=== PATIENT | female | born 1940 | race Caucasian/White ===

== ENCOUNTER → 2017-11-21 14:30 | Outpatient (CLI) | payer MEDICARE, BC, SELFPAY | PROVIDERS: Family Provider Family Medicine; PCP Family Medicine; Visit Provider Family Medicine | DX: R30.0 Dysuria (principal) | CPT/HCPCS: 87077; 87086; 87088; 87186 ==

== ENCOUNTER → 2017-12-14 08:26 | Outpatient (CLI) | payer MEDICARE, SELFPAY ==
[2017-12-14 10:58] LABS: ALB/GLOB Ratio 1.4 RATIO (0.9-2.4); AST(SGOT) 24 U/L (15-37); Alanine Aminotransfer ALT/SGPT 28 U/L (13-56); Albumin, Serum 3.8 g/dL (3.2-5.0); Alkaline Phosphatase 57 U/L (45-117); Anion Gap 8 (5-15); BUN 19 mg/dL (7-18); BUN/Creat Ratio 23.2 RATIO (10-20); Calcium,Total 8.4 mg/dL (8.5-10.1); Chloride 106 mmol/L (98-107); Cholesterol 168 mg/dL (200); Creatinine, Serum 0.82 mg/dL (0.55-1.02); EST Glomerular Filtration Rate 72 mL/min (>60); Est Glom Filt Rate - Afr Amer 87 mL/min (>60); Globulin 2.8 g/dL (2.2-4.2); Glucose 94 mg/dL (74-106); High Density Lipoprotein 71 mg/dL; Potassium 4.2 mmol/L (3.5-5.1); Protein, Total 6.6 g/dL (6.4-8.2); Sodium Level 142 mmol/L (136-145); Triglycerides 65 mg/dL; Very Low Density Lipoprotein 13 mg/dL (5-40)
== END ==
PROVIDERS: Family Provider Family Medicine; PCP Family Medicine; Visit Provider Family Medicine
DX: I70.90 Unspecified atherosclerosis (principal)
CPT/HCPCS: 36415; 80053; 80061

== ENCOUNTER → 2018-10-18 08:14 | Outpatient (CLI) | payer MEDICARE, SELFPAY ==
--- NOTE | 2018-10-18 08:24 | BD_ITS ---
STUDY: DUAL ENERGY X-RAY ABSORPTIOMETRY / DXA REASON FOR EXAM: Female, 78 years old. The patient is postmenopausal. Loss of height. TECHNIQUE: Bone Mineral Density (BMD) measurements of lumbar spine and bilateral hips were obtained. COMPARISON: Comparison is made with prior study dated June 02, 2011. FINDINGS: Lumbar Spine (L1-L4): g/cm2 (0.801) / T-score (-3.0) / Z-score (-1.2) Findings are suggestive of osteoporosis with a high fracture risk. Left Femur Total: g/cm2 (0.848) / T-score (-1.3) / Z-score (0.6) Left Femoral Neck: g/cm2 (0.921) / T-score (-0.8) / Z-score (1.2) Right Femur Total: g/cm2 (0.832) / T-score (-1.4) / Z-score (0.5) Right Femoral Neck: g/cm2 (0.816) / T-score (-1.6) / Z-score (0.4) The T-Scores on the most recent prior examination were: Lumbar Spine (L1-L4): There has been worsening of bone density since the previous examination. Left Femur Total: which represents a worsening of 1.6%. Right Femur Total: which represents a worsening of 0.8%. BD/Dexa Bone Density Study IMPRESSION: The patient is considered osteoporotic as outlined below according to World Pern[employer] Organization (WHO) criteria with a high fracture risk. There has been worsening of bone density since the previous examination. Reference Information: The T-score is the number of standard deviations above or below the standard which is normal for young adults at their peak bone mineral density. The World Health Organization (WHO) interprets the T-scores as follows: Above -1 Normal bone density Between -1 and -2.5 Osteopenia Equal to / or below -2.5 Osteoporosis As a practical clinical guideline, osteopenia may be graded as follows: Mild -1 through -1.5 Moderate -1.6 through -2.0 Severe -2.1 through -2.4 The Z-score is the number of standard deviations above or below age-matched controls. A Z-score of less than -1.5 would be considered abnormal. References: 1. NIH Osteoporosis and Related Bone Diseases http://www.osteo.org 2. International Society for Clinical Densitometry http://www.iscd.org 3. National Osteoporosis Foundation http://www.nof.org Electronically Signed: Chito Zuleta MD at 9:05 EST , Service support ,
== END ==
PROVIDERS: Family Provider Family Medicine; PCP Family Medicine; Referring Provider Family Medicine; Visit Provider Family Medicine
DX: Z78.0 Asymptomatic menopausal state (principal); M81.0 Age-related osteoporosis without current pathological fracture
CPT/HCPCS: 77080

== ENCOUNTER 2019-08-23 15:00 | Outpatient (RCR) | payer MEDICARE, SELFPAY ==
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
--- NOTE | 2019-08-23 15:44 | HP.PTDCSUM ---
HP - PT D/C Summary It has been my pleasure to treat BENNY LAMBERT under orders from KRISTY LarryC, for the diagnosis of LUMBAR DDD for a total of 10 visit(s). Discharge Date: 08/23/19 Please see the following information for a summary of their discharge status. - Subjective Subjective: PATIENT REPORTS SHE IS SO MUCH BETTER. STATES THE ONLY TIME SHE REALLY GETS PAIN IS IF SHE SITS WRONG OR TOO LONG. SHE REPORTS SHE WANTS TO STOP PT AT THIS TIME BUT PLANS TO CONTINUE WALKING WITH HER FRIENDS. WALKING EVERY DAY FOR ABOUT 30 MINUTES. SHE IS BIKING ON THE DAYS IT IS WARM. SHE REPORTS SHE HAS SILVER SNEAKERS AND CAN USE IT TO DO INDEP POOL EX TOO. DOING HEP. - Pain Lumbar Spine Pain Intensity (Out of 10): 1 - Overall Improvement % Improvement: 85 - Objective Objective/Function: ALL GOALS MET. UPON EXAM TODAY: INDEP GAIT INTO PT WITHOUT ANY ASSISTIVE DEVICES. INDEP TRANSFER SIT TO STAND WITHOUT UE ASSIST. Motor deficit: BELÉN LE'S 5/5 WITH MMT'ING. ROM deficit: BELÉN LE'S WFL. Dural Signs: MILDY POSITIVE LLE DURAL SIGN. NEGATIVE RIGHT LE. Lumbar mvmt loss: flex - NIL. ext - MOD. R SG - MOD. L SG - MOD. BELÉN SG TESTING STILL INCREASES LOW BACK PAIN A LITTLE BIT. Core strength: POOR. Palpation: NO LONGER TENDER IN BUTTOCK OR SACRAL AREAS TODAY. CONTINUES TO HAVE TIGHT PARASPINALS. - Goals Goal 1:: DECREASE C/O LOW BACK AND LLE SX'S. Goal Progress: Goal Met Goal 2:: IMPROVE LIFTING, WALKING, STANDING, SLEEP, TRAVEL AND HOMEMAKING FUNCTION Goal Progress: Goal Met Goal 3:: INSTRUCT IN PROPHYLAXIS Goal Progress: Goal Met - Plan Plan: D/C TO INDEP EX. PATIENT IS AGREEABLE. - D/C Information If there are questions or concerns regarding this patient's physical therapy, please feel free to call me at [phone]. Thank you for the referral of this patient. Sincerely, Chinyere Ibanez, PT, Cert MDT
== END 2019-08-23 19:00 | disposition home or self-care (01) ==
LOC: PT 15:00
PROVIDERS: Family Provider Family Medicine; PCP Family Medicine; Referring Provider Nurse Practitioner; Visit Provider Nurse Practitioner
DX: M51.36 Other intervertebral disc degeneration, lumbar region (principal)
CPT/HCPCS: 97113; 97162; 97530

== ENCOUNTER → 2020-01-17 09:57 | Outpatient (CLI) | payer MEDICARE, SELFPAY ==
[2018-05-22 09:49] VITALS: BMI 22.2
[2020-01-17 13:39] LABS: AST(SGOT) 22 U/L (15-37); Alanine Aminotransfer ALT/SGPT 25 U/L (13-56); Albumin, Serum 3.6 g/dL (3.2-5.0); Alkaline Phosphatase 55 U/L (45-117); Bilirubin, Direct 0.09 mg/dL (0.00-0.30); Globulin 3.4 g/dL (2.2-4.2)
== END ==
PROVIDERS: PCP Family Medicine; Referring Provider Family Medicine; Visit Provider Family Medicine
DX: M15.9 Polyosteoarthritis, unspecified (principal)
CPT/HCPCS: 36415; 80076

== ENCOUNTER → 2020-03-25 07:58 | Outpatient (CLI) | payer MEDICARE, SELFPAY ==
[2018-05-22 09:49] VITALS: BMI 22.2
[2020-03-25 10:21] LABS: Absolute Lymphocyte Count 1.23 X10^3/uL (0.83-4.51); Absolute Neutrophil Count 3.4 X10^3/uL (2.0-7.7); Basophil# 0.04 X10^3/uL; Basophil% 0.7 % (0-1); Eosinophil# 0.09 X10^3/uL; Eosinophils% 1.7 % (0-5); Hematocrit 46.9 % (37-47); Hemoglobin 14.8 g/dL (12.0-15.0); Lymphocyte # 1.23 X10^3/ul (4.0); Mean Corp Hgb Conc 31.6 g/dL (32-36); Mean Corpuscular Hgb 29.4 pg (27.0-32.0); Mean Corpuscular Volume 93.1 fL (81-99); Monocyte# 0.56 X10^3/uL; Monocyte% 10.5 % (0-10); NRBC Flagged by Analyzer 0 % (0-5); Neutrophil # 3.41 X10^3/uL (2.7-7.7); Neutrophil % 63.7 % (47-70); Platelet Count 376 K/mm3 (150-450); RBC Distribution Width CV 12.8 % (11.6-14.6); RBC Distribution Width SD 43.6 fl (35.1-43.9); Red Blood Count 5.04 M/mm3 (4.2-5.4); White Blood Count 5.4 K/mm3 (4.4-11.0)
[2020-03-25 10:49] LABS: Vitamin B12 862 pg/mL (211-911)
[2020-03-25 11:53] LABS: CRP < 2.90 mg/L (0.0-3.0); Ferritin 15 ng/mL (8-252); Iron Binding Capacity,Total 428 ug/dL (250-450); T4 Free Direct 1.05 ng/dL (0.76-1.46); Thyroid Stim Hormone (TSH) 3.07 uIU/mL (0.358-3.74)
[2020-03-26 15:40] LABS: ANTINUCLEAR ANTIBODIES DIRECT Positive (Negative)
[2020-03-30 14:08] LABS: Anti-Centromere B Ab <0.2 AI (0.0-0.9); Anti-Chromatin <0.2 AI (0.0-0.9); Anti-Jo <0.2 AI (0.0-0.9); Anti-Scleroderma-70 AB <0.2 AI (0.0-0.9); Anti-ribosomal P Antibodies <0.2 AI (0.0-0.9); RNP Ab <0.2 AI (0.0-0.9); SJOGREN'S Anti-SS-A test < 0.2 AI (0.0-0.9); SJOGREN'S Anti-SS-B test 4.3 AI (0.0-0.9); Smith Ab <0.2 AI (0.0-0.9); Smith/RNP Ab <0.2 AI (0.0-0.9)
[2020-03-30 15:25] LABS: Anti-dsDNA Ab <1 IU/mL (0-9)
== END ==
PROVIDERS: PCP Family Medicine; Referring Provider Family Medicine; Visit Provider Family Medicine
DX: L65.9 Nonscarring hair loss, unspecified (principal); R53.83 Other fatigue
CPT/HCPCS: 36415; 82607; 82728; 82746; 83550; 84439; 84443; 84481; 85025; 86038; 86140; 86225; 86235

== ENCOUNTER → 2020-04-03 12:52 | Outpatient (CLI) | payer MEDICARE, SELFPAY ==
--- NOTE | 2020-04-03 12:56 | ECHOD_ITS ---
Reason For Study: aortic systolic murmur Procedure This was a 2D Doppler, Color Flow transthoracic echocardiogram. Exam performed in department. Left Ventricle Normal LV size. The estimated ejection fraction is 65 %. Unable to assess diastolic dysfunction. No regional wall motion abnormalities noted. Right Ventricle Normal RV size. Normal systolic function. Atria Normal left atrium. Normal right atrium. No doppler evidence for ASD. Mitral Valve There is moderate mitral annular calcification. There is no mitral valve stenosis. There is no mitral regurgitation noted. Tricuspid Valve There is no tricuspid stenosis. Unable to estimate RV systolic pressure due to insufficient tricuspid regurgitant envelope. Trivial tricuspid valve insufficiency. Aortic Valve Moderate diffuse aortic valve thickening. Moderate aortic stenosis. Trivial aortic valve insufficiency. Pulmonic Valve There is no pulmonic valvular stenosis. Trivial pulmonic valve insufficiency. Great Vessels Normal aortic root. Pericardium/Pleural No pericardial effusion. MMode/2D Measurements & Calculations LVIDd: 3.9 cm IVSd: 0.98 cm LVOT diam: 2.1 cm LVIDs: 2.3 cm LVPWd: 0.93 cm LVOT area: 3.4 cm2 RVDd: 2.9 cm FS: 42.0 % Ao root diam: 2.8 cm LAV(MOD-bp): 35.7 ml LA A4 area: 15.7 cm2 LAV(MOD-bp) Indexed: 23.4 ml/m2 LAV(MOD-sp2): 29.7 ml LAV(MOD-sp4): 41.3 ml LA dimension(2D): 3.6 cm RA A4 area: 13.7 cm2 Time Measurements MV dec time: 0.23 sec Doppler Measurements & Calculations MV E max colton: 69.1 cm/sec Lat Peak E' Colton: 4.6 cm/sec Med Peak E' Colton: 4.5 cm/sec MV A max colton: 111.6 cm/sec E/E' lat: 15.1 E/E' med: 15.3 MV E/A: 0.62 Ao V2 max: 323.8 cm/sec LV V1 max: 123.2 cm/sec SV(LVOT): 87.7 ml Ao max P.0 mmHg LV V1 max P.1 mmHg Ao V2 mean: 232.8 cm/sec LV V1 mean P.3 mmHg Ao mean P.0 mmHg LV V1 mean: 85.9 cm/sec Ao V2 VTI: 68.2 cm LV V1 VTI: 25.7 cm KAILA(I,D): 1.3 cm2 KAILA(V,D): 1.3 cm2 PA V2 max: 98.6 cm/sec TR max colton: 285.7 cm/sec TR max P.6 mmHg Interpretation Summary The estimated ejection fraction is 65 %. Unable to assess diastolic dysfunction. Moderate diffuse aortic valve thickening. Moderate aortic stenosis. Ordering Physician: Arturo Marrero Referring Physician: Arturo Marrero Performed By: Taylor Cox, [place], RVT
== END ==
PROVIDERS: PCP Family Medicine; Referring Provider Family Medicine; Visit Provider Family Medicine
DX: I35.1 Nonrheumatic aortic (valve) insufficiency (principal)
CPT/HCPCS: 93306

== ENCOUNTER → 2021-01-06 08:20 | Outpatient (CLI) | payer MEDICARE, SELFPAY ==
[2020-05-27 14:13] VITALS: BMI 22.8
[2021-01-06 10:24] LABS: Absolute Lymphocyte Count 1.15 X10^3/uL (0.83-4.51); Absolute Neutrophil Count 3.1 X10^3/uL (2.0-7.7); Basophil# 0.04 X10^3/uL; Basophil% 0.8 % (0-1); Eosinophil# 0.08 X10^3/uL; Eosinophils% 1.6 % (0-5); Hematocrit 46.9 % (37-47); Hemoglobin 14.8 g/dL (12.0-15.0); Lymphocyte # 1.15 X10^3/ul (0.83-4.51); Lymphocyte % 23.3 % (19-41); Mean Corp Hgb Conc 31.6 g/dL (32-36); Mean Corpuscular Hgb 28.4 pg (27.0-32.0); Mean Platelet Vol. 9.8 fl (6.2-12.0); Monocyte# 0.58 X10^3/uL; Monocyte% 11.8 % (0-10); NRBC Flagged by Analyzer 0 % (0-5); Neutrophil # 3.06 X10^3/uL (2.7-7.7); Neutrophil % 62.1 % (47-70); Platelet Count 360 K/mm3 (150-450); RBC Distribution Width CV 12.7 % (11.6-14.6); RBC Distribution Width SD 41.3 fl (35.1-43.9); Red Blood Count 5.21 M/mm3 (4.2-5.4); White Blood Count 4.9 K/mm3 (4.4-11.0)
[2021-01-06 10:38] LABS: Vitamin D,25 Hydroxy 50.9 ng/mL
[2021-01-06 10:59] LABS: ALB/GLOB Ratio 1.1 RATIO (0.9-2.4); AST(SGOT) 16 U/L (15-37); Alanine Aminotransfer ALT/SGPT 19 U/L (13-56); Albumin, Serum 3.6 g/dL (3.2-5.0); Alkaline Phosphatase 62 U/L (45-117); Anion Gap 5 (5-15); BUN 21 mg/dL (7-18); BUN/Creat Ratio 28.5 RATIO (10-20); Calcium,Total 8.7 mg/dL (8.5-10.1); Chloride 106 mmol/L (98-107); Cholesterol 313 mg/dL (200); Creatinine, Serum 0.74 mg/dL (0.55-1.02); EST Glomerular Filtration Rate 81 mL/min (>60); Est Glom Filt Rate - Afr Amer 97 mL/min (>60); Globulin 3.4 g/dL (2.2-4.2); Glucose 91 mg/dL (74-106); High Density Lipoprotein 65 mg/dL; Potassium 4.4 mmol/L (3.5-5.1); Sodium Level 138 mmol/L (136-145); Thyroid Stim Hormone (TSH) 2.99 uIU/mL (0.358-3.74); Triglycerides 187 mg/dL; Very Low Density Lipoprotein 37 mg/dL (5-40)
== END ==
PROVIDERS: PCP Family Medicine; Referring Provider Family Medicine; Visit Provider Family Medicine
DX: E78.00 Pure hypercholesterolemia, unspecified (principal); R13.10 Dysphagia, unspecified; I35.0 Nonrheumatic aortic (valve) stenosis; M81.0 Age-related osteoporosis without current pathological fracture
CPT/HCPCS: 36415; 80053; 80061; 82306; 84443; 85025

== ENCOUNTER → 2021-01-08 13:54 | Outpatient (CLI) | payer MEDICARE, SELFPAY ==
[2020-05-27 14:13] VITALS: BMI 22.8
--- NOTE | 2021-01-08 13:57 | BI_ITS ---
MAMMOGRAPHY - BILATERAL SCREENING REASON FOR EXAM: Female, 81 years old. Routine annual screening examination. PERTINENT HISTORY: Daughters with breast cancer. TECHNIQUE: Digital bilateral breast sandra (3D mammographic acquisition) in the CC and MLO projections. 2-D mediolateral oblique (MLO) and craniocaudad (CC) views of both breasts were obtained. CAD: Full Field Digital Mammography with Computer Added Detection was performed. COMPARISON: Comparison is made with prior examination dated 03/03/2009. FINDINGS: Breast Composition: The breasts are heterogeneously dense, which may obscure small masses. There are no dominant masses or suspicious calcifications. Vascular calcification. Small benign-appearing bilateral axillary lymph. No other significant abnormalities are identified. There has been no significant change since the prior study. BI/SCRN MAMM (CAD)W/SANDRA BILAT IMPRESSION: Stable bilateral screening mammogram. Yearly follow-up mammogram recommended. (A) ASSESSMENT CATEGORY: BIRADS Category 2: Benign. A letter regarding these results will be sent to the patient by the facility within 30 days. Approximately 10% of breast cancers are not detected by mammography. A normal mammogram should not delay biopsy of a clinically suspicious abnormality. [id number] Electronically Signed: Chito Zuleta MD at 14:52 EDT , Service support ,
== END ==
PROVIDERS: PCP Family Medicine; Referring Provider Family Medicine; Visit Provider Family Medicine
DX: Z12.31 Encounter for screening mammogram for malignant neoplasm of breast (principal); Z80.3 Family history of malignant neoplasm of breast
CPT/HCPCS: 77063; 77067

== ENCOUNTER 2021-03-18 09:03 | Inpatient (IN) | payer MEDICARE, SELFPAY ==
[2020-05-27 14:13] VITALS: BMI 22.8
[2021-03-18] VITALS (14 sets, daily range): BP systolic 99–129; BP diastolic 59–82; PULSE 44–93; RESP 15–18; TEMP 35.8–36.9; O2SAT 91–100; BMI 45.3; BMI 20.7
[2021-03-18 10:11] LABS: Absolute Lymphocyte Count 1.67 X10^3/uL (0.83-4.51); Absolute Neutrophil Count 5.7 X10^3/uL (2.0-7.7); Basophil# 0.03 X10^3/uL; Basophil% 0.4 % (0-1); Eosinophil# 0.02 X10^3/uL; Eosinophils% 0.2 % (0-5); Hemoglobin 14.4 g/dL (12.0-15.0); Lymphocyte # 1.67 X10^3/ul (0.83-4.51); Lymphocyte % 20.4 % (19-41); Mean Corp Hgb Conc 32.7 g/dL (32-36); Mean Corpuscular Hgb 29.7 pg (27.0-32.0); Mean Corpuscular Volume 90.7 fL (81-99); Mean Platelet Vol. 9.6 fl (6.2-12.0); Monocyte# 0.69 X10^3/uL; Monocyte% 8.4 % (0-10); NRBC Flagged by Analyzer 0 % (0-5); Neutrophil # 5.71 X10^3/uL (2.7-7.7); Platelet Count 341 K/mm3 (150-450); RBC Distribution Width CV 13.1 % (11.6-14.6); Red Blood Count 4.85 M/mm3 (4.2-5.4); White Blood Count 8.2 K/mm3 (4.4-11.0)
--- NOTE | 2021-03-18 10:13 | ED.VIS.GI ---
HPI HPI - GI History of Present Illness Chief Complaint: Flank Pain Informant: patient Abdominal Pain/Flank Pain Onset: Today Context: Gradual Onset Timing: Continuous Quality: Aching Location: LLQ Worsened by: Nothing Relieved by: Nothing Nausea/Vomiting/Emesis GI Symptom: Positive for Nausea; Negative for Vomiting Diarrhea/Melena/Hematochezia GI Symptom: Positive for Diarrhea; Negative for Melena and Hematochezia Narrative Narrative: Patient presents with left lower abdominal pain that began today. Patient states it was gradually getting worse but then became severe this morning. Patient states the pain is constant and aching. Patient states pain is localized to the left lower quadrant. Patient states her pain radiates straight through to her back. Patient is concerned that this could possibly be a kidney stone. Patient states nothing makes her pain better nothing makes it worse. Patient admits to nausea but denies any vomiting. Patient admits to diarrhea but denies any melena or hematochezia. Patient denies any dysuria, hematuria, or urinary frequency. [facility] Medical History (Updated 03/18/21 @ 13:[address] Arturo Starr, ) Allergic rhinitis Essential (primary) hypertension GERD (gastroesophageal reflux disease) HLD (hyperlipidemia) Lumbar radiculopathy Nonrheumatic aortic (valve) stenosis Obstructive sleep apnea Osteoarthritis Osteoporosis Polyarthralgia Stenosis of right carotid artery Home Medications amlodipine 5 mg tablet 5 mg PO DAILY 05/22/18 [History Last Taken Unknown] denosumab 60 mg/mL subcutaneous syringe 60 mg SC [id number] PRN 05/22/18 [History Last Taken Unknown] famotidine 40 mg tablet 40 mg PO BID 05/22/18 [History Last Taken Unknown] multivitamin 1 tab PO DAILY 05/22/18 [History Last Taken Unknown] potassium citrate 5 mEq (540 mg) tablet,extended release 5 meq PO DAILY tab 05/22/18 [History Last Taken Unknown] etodolac 400 mg tablet 400 mg PO DAILY tab 05/26/20 [History Last Taken Unknown] turmeric 400 mg capsule mg PO 05/26/20 [History Last Taken Unknown] celecoxib 100 mg capsule 100 mg PO BID cap 05/27/20 [History Last Taken Unknown] evolocumab 140 mg/mL subcutaneous pen injector 140 mg SUBCUT Q2W #2 ml 01/09/21 [Rx Last Taken Unknown] Allergy/AdvReac Type Severity Reaction Status Date / Time ramipril [From Altace] Allergy Angioedema Verified 03/18/21 09:04 atorvastatin [From Lipitor] AdvReac myalgias Verified 03/18/21 09:04 cefuroxime [From Ceftin] AdvReac GI Upset Verified 03/18/21 09:04 isosorbide AdvReac headache Verified 03/18/21 09:04 [id number] Reductase AdvReac myalgias Verified 03/18/21 09:04 Inhibitor ANTIHISTAMINE, PT UNSURE WHAT Allergy Unknown Uncoded 03/18/21 09:04 Family History Father CVA (cerebral vascular accident) Mother CVA (cerebral vascular accident) Surgical History Esophageal dilatation History of carpal tunnel surgery History of lumbar surgery Social History Smoking Status: Never smoker alcohol intake: current ROS ROS ED Constitutional Constitutional ED: Denies chills or fever(s) Eyes Eyes: Denies blurry vision or change in vision ENT ENT ED: Denies rhinorrhea or sore throat Cardiovascular Cardiovascular: Denies chest pain or palpitations Respiratory/Chest Respiratory/Chest: Denies cough or dyspnea Gastrointestinal Gastrointestinal: Reports abdominal pain, diarrhea and nausea; Denies vomiting Genitourinary Genitourinary ED: Denies dysuria or hematuria Musculoskeletal Musculoskeletal: Reports back pain; Denies neck pain Integumentary Denies abscess or rash Neurologic Neurologic: Denies headache(s) or weakness Allergic/Immunologic Allergic/Immunologic ED: Denies mouth swelling or urticaria EXAM Physical Exam Const Vital Signs: 03/18/21 09:04 03/18/21 09:49 Temperature 97.2 F L Temperature Source Temporal Pulse Rate 44 L Respiratory Rate 18 Respiratory Effort Normal Non-Labored Respiratory Pattern Normal Blood Pressure 109/59 L Blood Pressure Mean 75 Pulse Ox 98 Oxygen Delivery Method Room Air Positive well nourished and well developed General Appearance ED: well developed HEENT Reports moist mucous membranes Neck supple and no JVD Resp normal respiratory effort and clear to auscultation bilaterally Cardio regular rate, regular rhythm and no murmurs GI normal to inspection, nondistended, normoactive bowel sounds Palpation: soft and tender LLQ; Negative for guarding or rebound tenderness present Back/Spine no CVA tenderness Extremity normal to inspection General Extremety ED: Negative for edema or tenderness General Extremity: Negative for edema Neuro oriented x3, CN's II-XII intact bilaterally and no sensory deficits noted Sensorium / Orientation: alert Motor Exam: strength 5/5 throughout Psych mental status grossly normal Skin no rashes or lesions noted MDM MDM MDM Narrative Medical decision making narrative: CBC and comprehensive metabolic profile were obtained and were within normal limits. Urinalysis does not show any evidence of urinary tract infection. CT scan of the abdomen and pelvis was obtained. There is diverticulitis with perforation. This was interpreted by the radiologist and reviewed by myself. Case was discussed with Dr. Ventura. He reviewed the CT scan and will take the patient to surgery today. Patient understood and was agreeable with the plan. All questions were answered. Lab Data Attestation: I reviewed the patient's lab results. Labs: Laboratory Results - last 24 hr 03/18/21 03/18/21 03/18/21 09:30 09:30 10:28 WBC 8.2 RBC 4.85 Hgb 14.4 Hct 44.0 MCV 90.7 MCH 29.7 MCHC 32.7 RDW Std Deviation 43.0 RDW Coeff of Gurvinder 13.1 Plt Count 341 MPV 9.6 Immature Gran % (Auto) 0.600 Neut % (Auto) 70.0 Lymph % (Auto) 20.4 Gentry % (Auto) 8.4 Eos % (Auto) 0.2 Baso % (Auto) 0.4 Absolute Neuts (auto) 5.7 Absolute Lymphs (auto) 1.67 Nucleated RBC % 0 Sodium 138 Potassium 3.7 Chloride 104 Carbon Dioxide 30.0 Anion Gap 4 L BUN 28 H Creatinine 0.95 Estim Creat Clear Calc 39.07 Est GFR (MDRD) Af Amer 73 Est GFR (MDRD) Non-Af 60 BUN/Creatinine Ratio 29.5 H Glucose 120 H Calcium 8.6 Total Bilirubin 0.30 AST 22 ALT 23 Alkaline Phosphatase 55 Total Protein 6.6 Albumin 3.6 Globulin 3.0 Albumin/Globulin Ratio 1.2 Lipase 139 Urine Color Yellow Urine Clarity Clear Urine pH 6.0 Ur Specific Mosca 1.025 Urine Protein 15 H Urine Glucose (UA) Normal Urine Ketones Negative Urine Occult Blood 10 H Urine Nitrite Negative Urine Bilirubin 3 H Urine Urobilinogen Normal Ur Leukocyte Esterase 25 H Urine RBC 0-5 SEEN Urine WBC 5-10 SEEN Ur Squamous Epith Cells 5-10 SEEN Urine Bacteria 1+ Urine Mucus 1+ Radiography Diagnostic Testing: Radiology Impression Abdomen/Pelvis CT 03/18/21 11:45 IMPRESSION: Acute perforated diverticulitis (surgical consultation recommended) Early organizing deep pelvic free fluid/collection (potential evolving abscess) Additional nonemergent findings, as above N.B. : The above Results were Read Back by Arturo Alcaraz DO to Dr. Matty DO, and understanding confirmed on 03/18/2021 12:22:34 (ET). Electronically Signed: Arturo Alcaraz DO at 12:25 EDT Tel , Service support , ADDENDUM: 03/18/21 1232 IMPRESSION: Acute perforated diverticulitis (surgical consultation recommended) Early organizing deep pelvic free fluid/collection (potential evolving abscess) Additional nonemergent findings, as above N.B. : The above Results were Read Back by Arturo Alcaraz DO to Dr. Matty DO, and understanding confirmed on 03/18/2021 12:22:34 (ET). Electronically Signed: Arturo Alcaraz DO at 12:25 EDT Tel , Service support , Discharge Plan Triage Chief Complaint: Flank Pain ED Provider: Arturo Starr Dx/Rx/DC Orders Clinical Impression: Diverticulitis of colon with perforation Prescriptions: No Action famotidine 40 mg tablet 40 mg PO BID RF: 0 multivitamin [Daily Multi-Vitamin] tablet 1 tab PO DAILY RF: 0 denosumab [Prolia] 60 mg/mL syringe 60 mg SC [id number] PRNRF: 0 potassium citrate 5 mEq (540 mg) tablet extended release 5 meq PO DAILY RF: 0 amlodipine 5 mg tablet 5 mg PO DAILY RF: 0 celecoxib 100 mg capsule 100 mg PO BID RF: 0 etodolac 400 mg tablet 400 mg PO DAILY RF: 0 turmeric 400 mg capsule PO RF: 0 Repatha SureClick 140 mg/mL pen injector 140 mg subcut Q2W Qty: 2 RF: 11 Primary Care Provider: Arturo Marrero Referrals: Arturo Marrero MD [Primary Care Provider] - Disposition Disposition: Acute Care Hospital [facility]
[2021-03-18 10:24] LABS: ALB/GLOB Ratio 1.2 RATIO (0.9-2.4); AST(SGOT) 22 U/L (15-37); Alanine Aminotransfer ALT/SGPT 23 U/L (13-56); Albumin, Serum 3.6 g/dL (3.2-5.0); Alkaline Phosphatase 55 U/L (45-117); Anion Gap 4 (5-15); BUN 28 mg/dL (7-18); BUN/Creat Ratio 29.5 RATIO (10-20); Calcium,Total 8.6 mg/dL (8.5-10.1); Chloride 104 mmol/L (98-107); Creatinine, Serum 0.95 mg/dL (0.55-1.02); EST Glomerular Filtration Rate 60 mL/min (>60); Est Glom Filt Rate - Afr Amer 73 mL/min (>60); Estimated Creatinine Clearance 39.07 ml/min; Glucose 120 mg/dL (74-106); Lipase 139 U/L (73-393); Potassium 3.7 mmol/L (3.5-5.1); Protein, Total 6.6 g/dL (6.4-8.2); Sodium Level 138 mmol/L (136-145)
[2021-03-18] MEDS: 0.9% Normal Saline 1,000 ML 1000 ML IV (10:32)
[2021-03-18] MEDS: Morphine 4 MG/ML Syringe IV (10:33)
[2021-03-18] MEDS: Ondansetron 4 MG/2 ML Vial IV (10:33)
[2021-03-18 10:38] LABS: Color, Urine Yellow (Yellow); Glucose, Dipstick Normal (Normal); Ketone-Dipstick Negative (Negative); Leukocyte Esterase-Dipstick 25 /ul (Negative); Nitrite-Dipstick Negative (Negative); Occult Blood-Urine 10 /ul (Negative); Protein-Dipstick 15 mg/dl (Negative); Specific Gravity, Urine 1.025 (1.002-1.030); Urine Clarity Clear (Clear); Urine Urobilinogen Normal (Normal)
[2021-03-18 10:43] LABS: Urine Bilirubin Dipstick 3 mg/dL (Negative)
[2021-03-18 10:45] LABS: Bacteria 1+ /hpf (None Seen); Mucous, Urine 1+ /hpf (<or=2+); Red Blood Cells-Urine 0-5 SEEN /hpf (0-5); Squamous Epithelial Cells - UA 5-10 SEEN /hpf (5-10); White Blood Cells 5-10 SEEN /hpf (0-5)
--- NOTE | 2021-03-18 11:45 | CT_ITS ---
STUDY: CT ABDOMEN AND PELVIS WITH CONTRAST REASON FOR EXAM: Female, 81 years old. Abdominal pain -- IV PO Contrast RADIATION DOSAGE (If Supplied By Facility): CTDIvol = ( 11.57 ) mGy, DLP = ( 470.23 ) mGycm TECHNIQUE: Transaxial images were obtained from the dome of the diaphragm to the symphysis pubis without oral contrast. Oral and amp; IV Gastrografin and amp; 100mL Isovue-300 was administered. Sagittal and coronal images were reconstructed. Individualized dose optimization techniques were used for this CT. COMPARISON: None. FINDINGS: Lung bases: Mild atelectasis. Heart: Vascular calcifications. Coronary artery disease. Liver: Unremarkable. Gallbladder/biliary ducts: Cholecystectomy. No acute process. Pancreas: Unremarkable. Spleen: Unremarkable. Adrenal glands: Unremarkable. Kidneys/ureters/bladder: Unremarkable. Uterus/adnexa: Hysterectomy. Pessary device. Tiny left cystic adnexa (axial image 76 series 2). Large bowel/small bowel: Mild inflammatory changes at the distal sigmoid colon near the left pelvic sidewall (axial image 83 series 2). No bowel obstruction. No pneumatosis. Contrast reaches the rectum. Nondilated small bowel loops. Appendix: No secondary signs of acute appendicitis. Nonvisualized appendix. Gastroesophageal junction/stomach: Contrast-filled hiatal hernia (axial image 11 series 2). Contrast-filled stomach. No wall thickening. Retroperitoneum/lymph nodes: Intraabdominal/pelvic free air (axial image 62 series 2). Early organizing deep pelvic collection /free fluid 6 measuring approximately 6 cm x 4 cm (axial image 87 series 2) interdigitating between the deep pelvic bowel loops. No pathologically enlarged lymph nodes. Vascular: Vascular calcifications. No aneurysm. Osseous structures: Lumbar spinal fixation hardware. Multilevel degenerative changes. No acute process. Subcutaneous/soft tissues: Punctate right breast calcification (axial image 7 series 2). Paraspinal muscle atrophy. Small fat-containing umbilical hernia. No acute process. CT/Abdomen/Pelvis WITH Contrast IMPRESSION: Acute perforated diverticulitis (surgical consultation recommended) Early organizing deep pelvic free fluid/collection (potential evolving abscess) Additional nonemergent findings, as above N.B. : The above Results were Read Back by Arturo Alcaraz DO to Dr. Matty DO, and understanding confirmed on 03/18/2021 12:22:34 (ET). Electronically Signed: Arturo Alcaraz DO at 12:25 EDT Tel , Service support ,
--- NOTE | 2021-03-18 13:01 | EKG12_ITS ---
Test Reason : PREOP Blood Pressure : / mmHG Vent. Rate : 057 BPM Atrial Rate : 057 BPM P-R Int : 172 ms QRS Dur : 088 ms QT Int : 448 ms P-R-T Axes : 027 006 033 degrees QTc Int : 436 ms Sinus bradycardia Otherwise normal ECG Confirmed by NELLIE FRAGOSO, GABBY ([id number]), map editor GISSELLE HEAD ([id number]) on 03/22/2021 9:26:17 AM Referred By: JAMIL Confirmed By:TROY BALLARD MD
[2021-03-18] MEDS: metroNIDAZOLE 500 MG/100 ML BAG 100 MG IV ×2 (13:28→23:48)
--- NOTE | 2021-03-18 14:17 | PCM.HP.STD ---
HPI - General HPI Narrative BENNY LAMBERT, is a 81 F who presents with lower abdominal pain. Patient reported this morning she started having severe abdominal pain in the lower abdomen radiating to the left lower back. Patient reports no fevers or chills. She says that she had a colonoscopy about 2 years ago which was normal except for one polyp. Patient has never had diverticulitis in the past. [facility] Medical History (Updated 03/18/21 @ 13:[address] Arturo Starr, DO) Allergic rhinitis Essential (primary) hypertension GERD (gastroesophageal reflux disease) HLD (hyperlipidemia) Lumbar radiculopathy Nonrheumatic aortic (valve) stenosis Obstructive sleep apnea Osteoarthritis Osteoporosis Polyarthralgia Stenosis of right carotid artery Home Medications amlodipine 5 mg tablet 5 mg PO DAILY 05/22/18 [History Last Taken Unknown] denosumab 60 mg/mL subcutaneous syringe 60 mg SC [id number] 05/22/18 [History Last Taken Unknown] famotidine 40 mg tablet 40 mg PO BID 05/22/18 [History Last Taken Unknown] multivitamin 1 tab PO DAILY 05/22/18 [History Last Taken Unknown] potassium citrate 5 mEq (540 mg) tablet,extended release 5 meq PO DAILY tab 05/22/18 [History Last Taken Unknown] etodolac 400 mg tablet 400 mg PO DAILY tab 05/26/20 [History Last Taken Unknown] turmeric 400 mg capsule mg PO 05/26/20 [History Last Taken Unknown] celecoxib 100 mg capsule 100 mg PO BID cap 05/27/20 [History Last Taken Unknown] evolocumab 140 mg/mL subcutaneous pen injector 140 mg SUBCUT Q2W #2 ml 01/09/21 [Rx Last Taken Unknown] Allergy/AdvReac Type Severity Reaction Status Date / Time ramipril [From Altace] Allergy Angioedema Verified 03/18/21 09:04 atorvastatin [From Lipitor] AdvReac myalgias Verified 03/18/21 09:04 cefuroxime [From Ceftin] AdvReac GI Upset Verified 03/18/21 09:04 isosorbide AdvReac headache Verified 03/18/21 09:04 [id number]-Qbo-Onq Reductase AdvReac myalgias Verified 03/18/21 09:04 Inhibitor ANTIHISTAMINE, PT UNSURE WHAT Allergy Unknown Uncoded 03/18/21 09:04 Family History Father CVA (cerebral vascular accident) Mother CVA (cerebral vascular accident) Surgical History (Updated 03/18/21 @ 14:[address] Gianfranco Ventura MD) Esophageal dilatation History of carpal tunnel surgery History of lumbar surgery Hx of appendectomy S/P cholecystectomy Social History Smoking Status: Never smoker alcohol intake: current ROS Constitutional Constitutional: Denies anorexia, fatigue or fever(s) Eyes Eyes: Denies blurry vision ENT HEENT: Denies abnormal hearing Cardiovascular Cardiovascular: Denies chest pain Respiratory/Chest Respiratory/Chest: Denies cough or dyspnea Gastrointestinal Gastrointestinal: Reports abdominal pain; Denies coffee ground emesis, constipation, diarrhea, dysphagia, hematemesis, hematochezia, melena, nausea or vomiting Genitourinary Genitourinary: Denies change in urinary stream Integumentary Integumentary: Denies jaundice Neurologic Neurologic: Denies abnormal gait Psychiatric Psychiatric: Denies anxiety Endocrine Endocrinology: Denies heat intolerance Hematologic/Lymphatic Hematologic/Lymphatic: Denies easy bleeding Vital Signs Vital Signs Vital Signs: 03/18/21 09:04 03/18/21 09:49 03/18/21 13:29 Temperature 97.2 F L 97.8 F Temperature Source Temporal Temporal Pulse Rate 44 L 64 Respiratory Rate 18 16 Respiratory Effort Normal Non-Labored Respiratory Pattern Normal Blood Pressure 109/59 L 110/66 Blood Pressure Mean 75 80 Pulse Ox 98 97 Oxygen Delivery Method Room Air Room Air Weight Weight: 255 lb 11.779 oz Body Mass Index (BMI) 45.3 Physical Exam Const oriented x3 and no apparent distress HEENT normocephalic Eyes PERRL Resp normal respiratory effort Cardio regular rate and regular rhythm GI soft to palpation Palpation: tender LLQ and RLQ Extremity normal to inspection Skin no rashes or lesions noted Neuro CN's II-XII intact bilaterally Results Lab / Micro Data Result Diagrams: 03/18/21 09:30 03/18/21 09:30 Labs: Laboratory Results - last 24 hr 03/18/21 09:30: WBC 8.2, RBC 4.85, Hgb 14.4, Hct 44.0, MCV 90.7, MCH 29.7, MCHC 32.7, RDW Std Deviation 43.0, RDW Coeff of Gurvinder 13.1, Plt Count 341, MPV 9.6, Immature Gran % (Auto) 0.600, Neut % (Auto) 70.0, Lymph % (Auto) 20.4, [place] % (Auto) 8.4, Eos % (Auto) 0.2, Baso % (Auto) 0.4, Absolute Neuts (auto) 5.7, Absolute Lymphs (auto) 1.67, Nucleated RBC % 0 03/18/21 09:30: Sodium 138, Potassium 3.7, Chloride 104, Carbon Dioxide 30.0, Anion Gap 4 L, BUN 28 H, Creatinine 0.95, Estim Creat Clear Calc 39.07, Est GFR (MDRD) Af Amer 73, Est GFR (MDRD) Non-Af 60, BUN/Creatinine Ratio 29.5 H, Glucose 120 H, Calcium 8.6, Total Bilirubin 0.30, AST 22, ALT 23, Alkaline Phosphatase 55, Total Protein 6.6, Albumin 3.6, Globulin 3.0, Albumin/Globulin Ratio 1.2, Lipase 139 03/18/21 10:28: Urine Color Yellow, Urine Clarity Clear, Urine pH 6.0, Ur Specific [place] 1.025, Urine Protein 15 H, Urine Glucose (UA) Normal, Urine Ketones Negative, Urine Occult Blood 10 H, Urine Nitrite Negative, Urine Bilirubin 3 H, Urine Urobilinogen Normal, Ur Leukocyte Esterase 25 H, Urine RBC 0-5 SEEN, Urine WBC 5-10 SEEN, Ur Squamous Epith Cells 5-10 SEEN, Urine Bacteria 1+, Urine Mucus 1+ Micro: Microbiology 03/18/21 13:18 Mucosa - Nose SARS-CoV-2 Antigen (Rapid) - Final Radiology Impression Abdomen/Pelvis CT 03/18/21 11:45 IMPRESSION: Acute perforated diverticulitis (surgical consultation recommended) Early organizing deep pelvic free fluid/collection (potential evolving abscess) Additional nonemergent findings, as above N.B. : The above Results were Read Back by Arturo Alcaraz DO to Dr. Matty DO, and understanding confirmed on 03/18/2021 12:22:34 (ET). Electronically Signed: Arturo Alcaraz DO at 12:25 EDT Tel , Service support , ADDENDUM: 03/18/21 1232 IMPRESSION: Acute perforated diverticulitis (surgical consultation recommended) Early organizing deep pelvic free fluid/collection (potential evolving abscess) Additional nonemergent findings, as above N.B. : The above Results were Read Back by Arturo Alcaraz DO to Dr. Matty DO, and understanding confirmed on 03/18/2021 12:22:34 (ET). Electronically Signed: Arturo Alcaraz DO at 12:25 EDT Tel , Service support , Assessment & Plan Assessment/Plan (1) Diverticulitis of colon with perforation: PLAN: Patient CT scan shows bubbles of free air throughout the abdomen with inflammation in the sigmoid colon. I discussed perforated sigmoid diverticulitis with the patient and her . I explained that this is a surgical issue and requires sigmoid resection. I discussed laparoscopic sigmoid colectomy with the patient in detail. I explained the possibility of having to convert to an open procedure. I also explained the possibility of having to perform a colostomy. I discussed the risks of the procedure include modality to bleeding, infection, injury to other bowel, injury to surrounding organs such as the bladder, ureter, blood vessels. Patient understands the risks and is willing to proceed with sigmoid colectomy this afternoon. Patient was started on antibiotics. Patient had a last colonoscopy 2 years ago. Gianfranco Ventura MD Pager: [facility] [address] [place] [address], [address] [place] [address] Office:
--- NOTE | 2021-03-18 14:30 | COL_PTH ---
PATIENT: BENNY LAMBERT LOC: MS3 U#:[id number] AGE/SX: 81/F [place] [facility] [place]: Dr. Gianfranco Ventura MD : 1940 BED: 1 DIS: 03/21/2021 SPEC #: [id number] RECD: 03/19/21 09:16 STATUS: ROSHAN PITTSJennifer #: [id number] EVETTE: 03/18/21 14:[address]: Gianfranco Ventura DEPT: SURGICAL PATHOLOGY RECD BY: Luis Daniel Rodgers ENTERED: 03/19/21 10:36 SP TYPE: COLON OTHR DR: Dr. Arturo Marrero MD Tissues: A - Sigmoid colon biopsy B - Colon Donuts C - Colon Donuts Procedures: Surgery Specimen Level IV Surgery Specimen Level V HEADER OPERATION: Laparoscopic sigmoid colectomy PRE-OP DIAGNOSIS: Acute perforated diverticulitis TISSUE SUBMITTED: A ? Sigmoid colon, B ? Proximal donut ? sigmoid, C ? Distal donut - rectal MICROSCOPIC DIAGNOSIS A. Sigmoid colon, segmental colectomy: Diverticular disease of colon with focal rupture and microabscess formation. Acute serositis. Margins of excision with no significant pathologic change. Two out of two lymph nodes with no pathologic change. B. Proximal mucosal donut, excision: Colonic mucosa with no pathologic change. C. Distal mucosal donut, excision: Colonic mucosa with no pathologic change. AM:amber 03/23/2021 MICROSCOPIC DESCRIPTION Slides are reviewed. GROSS DESCRIPTION A - Received in fixative is one container labeled with the patient's name and designated sigmoid colon. The specimen consists of a segment of colon with attached pericolonic adipose tissue measuring 12 cm in length. One resection margin is opened and other end is stapled. The serosal surface shows focal obando-white fibrous area. No mucosal lesion is identified. Sections reveal multiple diverticula. More dictation will follow after overnight fixation. / SJ:amber 03/19/21 Sections do not reveal any previously ruptured diverticula. Sections of pericolonic adipose tissue do not reveal any obviously enlarged lymph node. Finishing Range Operator sections are submitted in five cassettes as follows: 1 ? resection margin, 2-4 ? diverticula, 5 ? pericolonic adipose tissue. / SJ:amber 03/22/21 B - Received in fixative is one container labeled with the patient's name and designated proximal donut. The specimen consists of a donut-shaped piece of colonic tissue measuring 1.5 x 1.5 x 0.5 cm. Sutures are noted. The entire specimen is submitted in one cassette. / CORTES:amber 03/19/21 C - Received in fixative is one container labeled with the patient's name and designated distal donut. The specimen consists of a donut-shaped piece of colonic tissue measuring 1.5 x 1 x 0.5 cm. Multiple marcin are noted. Finishing Range Operator tissue is submitted in one cassette. / CORTES:amber 03/19/21 TC:2 CPT: 48242, 33703 x2
[2021-03-18] MEDS: Ciprofloxacin 400 MG/200 ML BAG 200 MG IV ×2 (15:00→22:27)
[2021-03-18] MEDS: Lubricating Jelly 60 GM Tube 30 GM TOPICAL (15:40)
[2021-03-18] MEDS: Bupivacaine Mpf 0.5% 30 ML VIAL (17:16)
[2021-03-18] MEDS: Lactated Ringers 1,000 ML 100 ML IV (17:16)
--- NOTE | 2021-03-18 17:49 | OP.PCM_ITS ---
Problems Associated Problem List Diagnoses (1) Diverticulitis of colon with perforation: Report of Operation Date of Procedure: 03/18/21 Pre-Operative Diagnosis: Perforated sigmoid diverticulitis Post-Operative Diagnosis: Same Surgery/Procedure Performed:: Laparoscopic sigmoid colectomy with primary anastomosis Specimen's removed: Sigmoid colon Drains: RUTHANN to bulb suction Estimated Blood Loss (mL): 20 Description of Procedure: Patient was brought back to the operating room and general anesthesia was induced. Rangel catheter was placed into the bladder. The rectal vault was irrigated with a Betadine saline solution. The abdomen was prepped and draped in usual sterile fashion. An incision was made superior to the umbilicus and deepened to the fascia which was elevated and incised. A port was placed into the abdomen and the abdomen was insufflated to 15 mmHg. Patient was placed in Trendelenburg position and a 5 mm port was placed in the right upper quadrant. The fluid that was in the pelvis was suctioned and the inflamed portion of the sigmoid colon was identified. A 12 mm port was placed in the right lower quadrant. Another 5 mm port was placed in left mid abdomen all under direct visualization. Next the bowel was grasped and retracted and the sigmoid colon was mobilized proximally and distally from the lateral sidewall. There was minimal inflammation and some mild purulent fluid in the abdomen. The healthy proximal colon was identified and the mesentery to the disease colon was taken down using Enseal. Once the rectum was encountered an [place] stapler was used to divide the rectum. There was good hemostasis in the pelvis. It was irrigated and suctioned dry. Next an incision was made in a Pfannenstiel fashion in the lower abdomen and deepened to the fascia which was incised and the linea alba was split and a wound protector was placed. The distal sigmoid colon was delivered through the incision until the healthy proximal bowel was encountered. A José Miguel was placed across the bowel and it was divided. Valorie clamps were used to grasp the colon and a twenty-five sizer was able to fit into the distal descending colon. The anvil was placed into the distal colon and an 0 Prolene suture was used to create a pursestring suture. The colon was placed back into the abdomen and the wound protector was tied closed and the abdomen was reinsufflated. The well-lubricated sizer was placed through the rectum and appeared to easily reach the staple line. The well-lubricated stapler was then placed through the anus and into the rectum and the spike was deployed at the mid staple line. The anvil was then attached to it and it was closed and fired. The stapler was removed in entirety. Next a grasper was used to compress the descending colon at the pelvis. The abdomen was filled with fluid and a well- lubricated rigid sigmoidoscope was placed into the anus and insufflation was performed. There was no air leak. This test was performed twice. No leak either time. Next the sigmoidoscope was removed and the abdomen was irrigated and suctioned and through the left lateral port a 15 mm drain was placed into the pelvis and then sutured to the skin. The abdomen was then allowed to desufflate and the ports were removed. The posterior peritoneum at the lower Pfannenstiel incision was closed in a running fashion with 2-0 Vicryl suture. The subcutaneous tissue was irrigated and suctioned dry. The anterior fascia was closed with a running #1 PDS suture. The midline upper 12 mm port in the right lower quadrant pulmonary port fascia was each closed with an 0 Vicryl [id number] suture. The incisions were injected with local anesthetic and closed with interrupted 4-0 Monocryl suture and Steri-Strips and bandages were applied. Patient was then awoken and taken to PACU in stable condition with Rangel in place. Patient tolerated the procedure well. Admit VTE Documentation VTE Mechan Device Prophylaxis: SCD's
[2021-03-18] MEDS: Famotidine 20 MG Tablet 40 MG PO (21:57)
[2021-03-19] MEDS: Lactated Ringers 1,000 ML 100 ML IV ×2 (01:58→14:20)
[2021-03-19 03:54] VITALS: BP 123/74; PULSE 83; RESP 16; TEMP 36.4; O2SAT 99
[2021-03-19] MEDS: metroNIDAZOLE 500 MG/100 ML BAG 100 MG IV ×3 (05:13→21:39)
[2021-03-19] MEDS: Morphine 2 MG/ML Syringe IV ×6 (05:16→21:45)
[2021-03-19 07:12] LABS: Absolute Lymphocyte Count 0.85 X10^3/uL (0.83-4.51); Absolute Neutrophil Count 10.9 X10^3/uL (2.0-7.7); Basophil# 0.01 X10^3/uL; Basophil% 0.1 % (0-1); Hematocrit 38.9 % (37-47); Hemoglobin 12.6 g/dL (12.0-15.0); Lymphocyte # 0.85 X10^3/ul (0.83-4.51); Lymphocyte % 6.7 % (19-41); Mean Corp Hgb Conc 32.4 g/dL (32-36); Mean Corpuscular Hgb 29.6 pg (27.0-32.0); Mean Corpuscular Volume 91.5 fL (81-99); Mean Platelet Vol. 10.1 fl (6.2-12.0); Monocyte# 0.84 X10^3/uL; Monocyte% 6.6 % (0-10); NRBC Flagged by Analyzer 0 % (0-5); Neutrophil # 10.91 X10^3/uL (2.7-7.7); Neutrophil % 86.2 % (47-70); Platelet Count 279 K/mm3 (150-450); RBC Distribution Width CV 13.3 % (11.6-14.6); RBC Distribution Width SD 44.8 fl (35.1-43.9); Red Blood Count 4.25 M/mm3 (4.2-5.4); White Blood Count 12.7 K/mm3 (4.4-11.0)
[2021-03-19 07:46] VITALS: BP 130/86; PULSE 81; RESP 18; TEMP 36.7; O2SAT 97
[2021-03-19 07:46] LABS: Anion Gap 6 (5-15); BUN 15 mg/dL (7-18); BUN/Creat Ratio 24.4 RATIO (10-20); Calcium,Total 7.6 mg/dL (8.5-10.1); Chloride 107 mmol/L (98-107); Creatinine, Serum 0.61 mg/dL (0.55-1.02); EST Glomerular Filtration Rate 100 mL/min (>60); Est Glom Filt Rate - Afr Amer 120 mL/min (>60); Estimated Creatinine Clearance 37.12 ml/min; Glucose 110 mg/dL (74-106); Potassium 4.3 mmol/L (3.5-5.1); Sodium Level 136 mmol/L (136-145)
[2021-03-19] MEDS: 0.9% Saline Lock 10 ML Syringe IV ×4 (07:49→21:45)
--- NOTE | 2021-03-19 07:49 | PCM.PN.SRG ---
Subjective Subjective Patient reports her abdominal pain is controlled on the IV medication. No nausea or vomiting overnight. Objective Data Objective Data Vital Signs: Vital Signs Temp Pulse Resp BP Pulse Ox 98.1 F 81 18 130/86 H 97 03/19/21 07:46 03/19/21 07:46 03/19/21 07:46 03/19/21 07:46 03/19/21 07:46 Oxygen Flow Rate (L/min) 2 Oxygen Delivery Method Room Air Weight: 117 lb 1 oz Body Mass Index (BMI) 20.7 Intake & Output: Intake and Output for Last 24 Hours 03/17/21 03/18/21 03/19/21 23:59 23:59 23:59 Intake Total 1500 / 1500 1278.33 / 1278.33 Output Total 510 / 780 930 / 930 Balance 990 / 720 348.33 / 348.33 Lab / Micro Data Result Diagrams: 03/19/21 06:00 03/19/21 06:00 Labs: Laboratory Results - last 24 hr 03/18/21 09:30: WBC 8.2, RBC 4.85, Hgb 14.4, Hct 44.0, MCV 90.7, MCH 29.7, MCHC 32.7, RDW Std Deviation 43.0, RDW Coeff of Gurvinder 13.1, Plt Count 341, MPV 9.6, Immature Gran % (Auto) 0.600, Neut % (Auto) 70.0, Lymph % (Auto) 20.4, [place] % (Auto) 8.4, Eos % (Auto) 0.2, Baso % (Auto) 0.4, Absolute Neuts (auto) 5.7, Absolute Lymphs (auto) 1.67, Nucleated RBC % 0 03/18/21 09:30: Sodium 138, Potassium 3.7, Chloride 104, Carbon Dioxide 30.0, Anion Gap 4 L, BUN 28 H, Creatinine 0.95, Estim Creat Clear Calc 39.07, Est GFR (MDRD) Af Amer 73, Est GFR (MDRD) Non-Af 60, BUN/Creatinine Ratio 29.5 H, Glucose 120 H, Calcium 8.6, Total Bilirubin 0.30, AST 22, ALT 23, Alkaline Phosphatase 55, Total Protein 6.6, Albumin 3.6, Globulin 3.0, Albumin/Globulin Ratio 1.2, Lipase 139 03/18/21 10:28: Urine Color Yellow, Urine Clarity Clear, Urine pH 6.0, Ur Specific [place] 1.025, Urine Protein 15 H, Urine Glucose (UA) Normal, Urine Ketones Negative, Urine Occult Blood 10 H, Urine Nitrite Negative, Urine Bilirubin 3 H, Urine Urobilinogen Normal, Ur Leukocyte Esterase 25 H, Urine RBC 0-5 SEEN, Urine WBC 5-10 SEEN, Ur Squamous Epith Cells 5-10 SEEN, Urine Bacteria 1+, Urine Mucus 1+ 03/19/21 06:00: WBC 12.7 H, RBC 4.25, Hgb 12.6, Hct 38.9, MCV 91.5, MCH 29.6, MCHC 32.4, RDW Std Deviation 44.8 H, RDW Coeff of Gurvinder 13.3, Plt Count 279, MPV 10.1, Immature Gran % (Auto) 0.400, Neut % (Auto) 86.2 H, Lymph % (Auto) 6.7 L, [place] % (Auto) 6.6, Eos % (Auto) 0.0, Baso % (Auto) 0.1, Absolute Neuts (auto) 10.9 H, Absolute Lymphs (auto) 0.85, Nucleated RBC % 0 03/19/21 06:00: Sodium 136, Potassium 4.3, Chloride 107, Carbon Dioxide 23.0, Anion Gap 6, BUN 15, Creatinine 0.61, Estim Creat Clear Calc 37.12, Est GFR (MDRD) Af Amer 120, Est GFR (MDRD) Non-Af 100, BUN/Creatinine Ratio 24.4 H, Glucose 110 H, Calcium 7.6 L Micro: Microbiology 03/18/21 13:18 Mucosa - Nose SARS-CoV-2 Antigen (Rapid) - Final Radiography Diagnostic Testing: Radiology Impression Abdomen/Pelvis CT 03/18/21 11:45 IMPRESSION: Acute perforated diverticulitis (surgical consultation recommended) Early organizing deep pelvic free fluid/collection (potential evolving abscess) Additional nonemergent findings, as above N.B. : The above Results were Read Back by Arturo Alcaraz DO to Dr. Matty DO, and understanding confirmed on 03/18/2021 12:22:34 (ET). Electronically Signed: Arturo Alcaraz DO at 12:25 EDT Tel , Service support , ADDENDUM: 03/18/21 1232 IMPRESSION: Acute perforated diverticulitis (surgical consultation recommended) Early organizing deep pelvic free fluid/collection (potential evolving abscess) Additional nonemergent findings, as above N.B. : The above Results were Read Back by Arturo Alcaraz DO to Dr. Matty DO, and understanding confirmed on 03/18/2021 12:22:34 (ET). Electronically Signed: Arturo Alcaraz DO at 12:25 EDT Tel , Service support , Physical Exam Const oriented x3 and no apparent distress Resp normal respiratory effort Cardio regular rate and regular rhythm GI soft to palpation Palpation: tender Assessment & Plan Assessment/Plan (1) Diverticulitis of colon with perforation: PLAN: Patient is admitted to the floor after laparoscopic sigmoid colectomy for perforated sigmoid diverticulitis. Patient has a drain in place. Patient will be continued on antibiotics. Keep n.p.o. with IV fluids and PPI until passing flatus. I will remove the patient's Rangel. Start Lovenox. Encourage ambulation and incentive spirometer. Gianfranco Ventura MD Pager: [facility] [address] [place] [address], [address] [place] [address] Office:
[2021-03-19] MEDS: Enoxaparin 40 MG/0.4 ML Syringe SC (07:56)
[2021-03-19] MEDS: Famotidine 20 MG Tablet 40 MG PO ×2 (07:56→21:39)
[2021-03-19] MEDS: amLODIPine 5 MG Tablet PO (07:57)
[2021-03-19] MEDS: Etodolac 200 MG Capsule 400 MG PO (07:57)
[2021-03-19 09:03] VITALS: O2SAT 97
--- NOTE | 2021-03-19 10:00 | CASEMGMT ---
RN CM Face to Face with patient for initial transition planning/care coordination assessment. RN CM introduced self and role at [facility]. Patient lying in bed, alert and oriented, at bedside. Patient willing to participate in assessment and is able to answer all questions appropriately. Care providers, pharmacy, and demographics verified. Patient wishes to discharge home, denies need for home health at this time. Patient states she has no further needs or concerns at this time. CM to follow for discharge planning needs that may arise. PCP: Arturo Marrero Specialists: Lang, ELECTRONIC TEST TECHNICIAN; Iam mental health nurse practitioner; Fernando Conley Preferred Pharmacy: [facility] Insurance: [employer] [facility] Prescription Benefit: yes Living Will/HPOA: yes, Tab Brennan LNOK: Living Arrangements: Patient lives with in a single story home with no steps to enter. Patient states she is independent at home. Transportation: self/ DME/HHC: Patient states she has cane and hip kit at home. Patient denies previous HHC. Disposition Plan: Patient to discharge home with family support and follow-up plans in place. Miriam DAVIES, RN, CM
[2021-03-19] MEDS: Ciprofloxacin 400 MG/200 ML BAG 200 MG IV ×2 (11:32→22:52)
--- NOTE | 2021-03-19 12:45 | CASEMGMT ---
Social Work Note Per machine cementer questions, pt has completed HCPOA and LW and provided documents to [facility]. SW reviewed chart, no documents found. SW in to speak with pt. SW introduced self and role at [facility]. Pt confirms she has completed HCPOA and LW. SW informed pt that documents are not on file at [facility]. Pt states her should have copies of them and should be able to bring in copies. Miriam Galvez ROW BOSS, TANBARK LABORER
[2021-03-19 14:00] VITALS: BP 127/77; PULSE 86; RESP 18; TEMP 36.7; O2SAT 97
[2021-03-19 19:54] VITALS: BP 145/86; PULSE 102; RESP 17; TEMP 37; O2SAT 93
[2021-03-20] MEDS: Lactated Ringers 1,000 ML 100 ML IV ×2 (02:10→13:29)
[2021-03-20 02:11] VITALS: BP 128/75; PULSE 90; RESP 16; TEMP 37; O2SAT 94
[2021-03-20] MEDS: Morphine 2 MG/ML Syringe IV ×2 (04:03→07:51)
[2021-03-20] MEDS: metroNIDAZOLE 500 MG/100 ML BAG 100 MG IV ×3 (05:46→21:30)
[2021-03-20 06:56] LABS: Absolute Lymphocyte Count 0.84 X10^3/uL (0.83-4.51); Basophil# 0.02 X10^3/uL; Basophil% 0.2 % (0-1); Eosinophil# 0.07 X10^3/uL; Eosinophils% 0.8 % (0-5); Hematocrit 39.2 % (37-47); Hemoglobin 12.6 g/dL (12.0-15.0); Lymphocyte # 0.84 X10^3/ul (0.83-4.51); Lymphocyte % 9.7 % (19-41); Mean Corp Hgb Conc 32.1 g/dL (32-36); Mean Corpuscular Hgb 29.4 pg (27.0-32.0); Mean Corpuscular Volume 91.4 fL (81-99); Mean Platelet Vol. 9.4 fl (6.2-12.0); Monocyte# 0.71 X10^3/uL; Monocyte% 8.2 % (0-10); NRBC Flagged by Analyzer 0 % (0-5); Neutrophil # 7.01 X10^3/uL (2.7-7.7); Neutrophil % 80.6 % (47-70); Platelet Count 281 K/mm3 (150-450); RBC Distribution Width CV 13.2 % (11.6-14.6); RBC Distribution Width SD 44.3 fl (35.1-43.9); Red Blood Count 4.29 M/mm3 (4.2-5.4); White Blood Count 8.7 K/mm3 (4.4-11.0)
[2021-03-20 07:24] LABS: Anion Gap 6 (5-15); BUN 7 mg/dL (7-18); BUN/Creat Ratio 12.7 RATIO (10-20); Calcium,Total 7.8 mg/dL (8.5-10.1); Chloride 107 mmol/L (98-107); Creatinine, Serum 0.55 mg/dL (0.55-1.02); EST Glomerular Filtration Rate 113 mL/min (>60); Est Glom Filt Rate - Afr Amer 136 mL/min (>60); Estimated Creatinine Clearance 37.12 ml/min; Glucose 97 mg/dL (74-106); Potassium 3.4 mmol/L (3.5-5.1); Sodium Level 140 mmol/L (136-145)
[2021-03-20 07:40] VITALS: O2SAT 91
[2021-03-20 07:48] VITALS: BP 153/79; PULSE 97; RESP 16; TEMP 36.9; O2SAT 96
[2021-03-20] MEDS: 0.9% Saline Lock 10 ML Syringe IV (07:51)
[2021-03-20] MEDS: Ciprofloxacin 400 MG/200 ML BAG 200 MG IV ×2 (10:16→23:04)
[2021-03-20] MEDS: amLODIPine 5 MG Tablet PO (10:17)
[2021-03-20] MEDS: Etodolac 200 MG Capsule 400 MG PO (10:17)
[2021-03-20] MEDS: Famotidine 20 MG Tablet 40 MG PO ×2 (10:17→21:31)
[2021-03-20] MEDS: Enoxaparin 40 MG/0.4 ML Syringe SC (10:17)
[2021-03-20] MEDS: Ondansetron 4 MG/2 ML Vial IV (10:29)
--- NOTE | 2021-03-20 11:20 | PN.SURG_ITS ---
Subjective Subjective status post partial colectomy by Dr. Ventura I am covering this patient as surgeon electronic news gathering camera person this weekend Patient reports that she feels like a heavy weight on her abdomen, she has not passed flatus, she does admit that she is improving a little Objective Data Objective Data Vital Signs: Vital Signs Temp Pulse Resp BP Pulse Ox 98.4 F 97 16 153/79 H 96 03/20/21 07:48 03/20/21 07:48 03/20/21 07:48 03/20/21 07:48 03/20/21 07:48 Oxygen Flow Rate (L/min) 2 Oxygen Delivery Method Room Air Weight: 53.1 kg Body Mass Index (BMI) 20.7 Intake & Output: Intake and Output for Last 24 Hours 03/18/21 03/19/21 03/20/21 23:59 23:59 23:59 Intake Total 1500 / 1500 3487.67 / 3487.67 1040 / 1040 Output Total 510 / 780 2004 / 2004 630 / 630 Balance 990 / 720 1482.67 / 1482.67 410 / 410 Lab / Micro Data Result Diagrams: 03/20/21 06:40 03/20/21 06:40 Labs: Laboratory Results - last 24 hr 03/20/21 06:40: WBC 8.7, RBC 4.29, Hgb 12.6, Hct 39.2, MCV 91.4, MCH 29.4, MCHC 32.1, RDW Std Deviation 44.3 H, RDW Coeff of Gurvinder 13.2, Plt Count 281, MPV 9.4, Immature Gran % (Auto) 0.500, Neut % (Auto) 80.6 H, Lymph % (Auto) 9.7 L, [place] % (Auto) 8.2, Eos % (Auto) 0.8, Baso % (Auto) 0.2, Absolute Neuts (auto) 7.0, Absolute Lymphs (auto) 0.84, Nucleated RBC % 0 03/20/21 06:40: Sodium 140, Potassium 3.4 L, Chloride 107, Carbon Dioxide 27.0, Anion Gap 6, BUN 7, Creatinine 0.55, Estim Creat Clear Calc 37.12, Est GFR (MDRD) Af Amer 136, Est GFR (MDRD) Non-Af 113, BUN/Creatinine Ratio 12.7, Glucose 97, Calcium 7.8 L Micro: Microbiology 03/18/21 13:18 Mucosa - Nose SARS-CoV-2 Antigen (Rapid) - Final Physical Exam Narrative abdomen is soft and benign, dressings intact with no seepage Const alert and oriented x3
[2021-03-20 13:26] VITALS: BP 123/67; PULSE 99; RESP 16; TEMP 36.6; O2SAT 94
[2021-03-20 18:27] VITALS: BP 129/77; PULSE 99; RESP 16; TEMP 37.1; O2SAT 94
[2021-03-20 23:52] VITALS: BP 146/79; PULSE 92; RESP 16; TEMP 36.5; O2SAT 95
[2021-03-21 03:44] VITALS: BP 153/86; PULSE 92; RESP 16; TEMP 36.9; O2SAT 96
[2021-03-21] MEDS: Lactated Ringers 1,000 ML 100 ML IV (05:30)
[2021-03-21 05:34] LABS: Absolute Lymphocyte Count 0.73 X10^3/uL (0.83-4.51); Absolute Neutrophil Count 6.5 X10^3/uL (2.0-7.7); Basophil# 0.04 X10^3/uL; Basophil% 0.5 % (0-1); Eosinophil# 0.17 X10^3/uL; Eosinophils% 2.1 % (0-5); Hematocrit 41.1 % (37-47); Hemoglobin 13.6 g/dL (12.0-15.0); Lymphocyte # 0.73 X10^3/ul (0.83-4.51); Lymphocyte % 8.9 % (19-41); Mean Corp Hgb Conc 33.1 g/dL (32-36); Mean Corpuscular Hgb 29.7 pg (27.0-32.0); Mean Corpuscular Volume 89.7 fL (81-99); Mean Platelet Vol. 9.4 fl (6.2-12.0); Monocyte# 0.71 X10^3/uL; Monocyte% 8.7 % (0-10); NRBC Flagged by Analyzer 0 % (0-5); Neutrophil # 6.52 X10^3/uL (2.7-7.7); Neutrophil % 79.4 % (47-70); Platelet Count 323 K/mm3 (150-450); RBC Distribution Width CV 12.8 % (11.6-14.6); RBC Distribution Width SD 42.4 fl (35.1-43.9); Red Blood Count 4.58 M/mm3 (4.2-5.4); White Blood Count 8.2 K/mm3 (4.4-11.0)
[2021-03-21 05:50] LABS: Anion Gap 7 (5-15); BUN 7 mg/dL (7-18); BUN/Creat Ratio 13.7 RATIO (10-20); Calcium,Total 7.9 mg/dL (8.5-10.1); Chloride 104 mmol/L (98-107); Creatinine, Serum 0.51 mg/dL (0.55-1.02); EST Glomerular Filtration Rate 123 mL/min (>60); Est Glom Filt Rate - Afr Amer 149 mL/min (>60); Estimated Creatinine Clearance 37.12 ml/min; Glucose 95 mg/dL (74-106); Sodium Level 138 mmol/L (136-145)
[2021-03-21] MEDS: metroNIDAZOLE 500 MG/100 ML BAG 100 MG IV (06:01)
--- NOTE | 2021-03-21 06:09 | NURSING ---
Pt has active bowel sounds in all 4 quadrants, she reported that she is passing flatus.
[2021-03-21 07:33] VITALS: O2SAT 94
[2021-03-21 09:17] LABS: Magnesium 1.9 mg/dL (1.6-2.6)
[2021-03-21] MEDS: Ciprofloxacin 400 MG/200 ML BAG 200 MG IV (09:18)
[2021-03-21] MEDS: Etodolac 200 MG Capsule 400 MG PO (09:18)
[2021-03-21] MEDS: amLODIPine 5 MG Tablet PO (09:18)
[2021-03-21] MEDS: Famotidine 20 MG Tablet 40 MG PO (09:18)
[2021-03-21] MEDS: Enoxaparin 40 MG/0.4 ML Syringe SC (09:19)
[2021-03-21 09:23] VITALS: BP 114/93; PULSE 83; RESP 16; TEMP 36.4; O2SAT 94
[2021-03-21] MEDS: Potassium Chloride 10mEq/100mL 10 MEQ/100 ML IV.SOLN. 100 MEQ IV BOLUS ×4 (10:38→14:27)
--- NOTE | 2021-03-21 12:12 | DCINST_ITS ---
Discharge Instructions Follow Up Care Test Results: Test results from this visit will be discussed in further detail at your follow-up appointment, if applicable. Discharge Plan Admission Admit Date/Time: 03/18/21 19:13 Attending Provider: Gianfranco Ventura Primary Care Provider: Arturo Marrero Instructions Additional Instructions / Restrictions: Recommended pain control regimen - May take 600 mg ibuprofen (Motrin) and then in 3-4 hours, may take 650 mg acetaminophen (Tylenol), then in 3-4 hours may take 600 mg ibuprofen, then in 3- 4 hours may take 650 mg acetaminophen and so on for 2-3 days May take narcotic pain medication for pain that is not controlled by above and at night for comfort through the night Leave dressings in place Sponge bathe only Do not soak - no tub baths/swimming Ice applied to areas of discomfort may help No lifting/pushing/pulling greater than 10 pounds for at least a month. Regular diet as tolerated, drink plenty of fluids. Avoid carbonated beverages for a few days as this will cause abdominal bloating and thus discomfort after our surgery. Please call Dr. Ventura's office for follow up - given drain is still in place Discharge Orders/Prescriptions Prescriptions: New hydrocodone-acetaminophen 5-325 mg tablet 1 tab PO BID 5 Days Qty: 10 RF: 0 amoxicillin-pot clavulanate [Augmentin] 875-125 mg tablet 1 tab PO BID 5 Days Qty: 10 RF: 0 metronidazole [Flagyl] 500 mg tablet 500 mg PO TID 5 Days Qty: 15 RF: 0 No Action famotidine 40 mg tablet 40 mg PO BID RF: 0 multivitamin [Daily Multi-Vitamin] tablet 1 tab PO DAILY RF: 0 denosumab [Prolia] 60 mg/mL syringe 60 mg SC [id number] RF: 0 potassium citrate 5 mEq (540 mg) tablet extended release 5 meq PO DAILY RF: 0 amlodipine 5 mg tablet 5 mg PO DAILY RF: 0 celecoxib 100 mg capsule 100 mg PO BID RF: 0 etodolac 400 mg tablet 400 mg PO DAILY RF: 0 turmeric 400 mg capsule PO RF: 0 Repatha SureClick 140 mg/mL pen injector 140 mg subcut Q2W Qty: 2 RF: 11 Referrals / Follow Up: Arturo Marrero MD [Primary Care Provider] -
[2021-03-21 15:24] VITALS: BP 129/67; PULSE 81; RESP 18; TEMP 36.8; O2SAT 97
--- NOTE | 2021-03-22 15:44 | CASEMGMT ---
CHASITY ORELLANA Discharge Follow Up Phone Call: HANK: Bernice Strata: 3 Call Date: 03/22/21 Discharge Date: 03/21/21 Time of Call:[id number] Duration:3 min Admitting Dx: partial colectomy CHASITY ORELLANA completed follow up phone call after recent hospitalization. Pt states she is doing much better and that it is a slow process. Pt was able to flower buncher or picker her rx without difficulties. Pt has made an appt for follow up with and also has an appt with on Monday. Pt denies questions regarding her medications or dc instructions. She states her dtr is there assisting her. Pt has no further questions or concerns at this time.
--- NOTE | 2021-03-29 09:35 | DS.PCM_ITS ---
Providers Date of Admission: 03/18/21 Primary Care Physician: Dr. Arturo Marrero MD Reason For Visit: PERFORATED DIVERTICULITIS Diagnosis Discharge Diagnosis (1) Diverticulitis of colon with perforation: Status: Acute Code(s): K57.20 - Diverticulitis of large intestine with perforation and abscess without bleeding Medications at Discharge Home Medications amlodipine 5 mg tablet 5 mg PO DAILY 05/22/18 denosumab 60 mg/mL subcutaneous syringe 60 mg SC [id number] 05/22/18 famotidine 40 mg tablet 40 mg PO BID 05/22/18 multivitamin 1 tab PO DAILY 05/22/18 potassium citrate 5 mEq (540 mg) tablet,extended release 5 meq PO DAILY tab 05/22/18 etodolac 400 mg tablet 400 mg PO DAILY tab 05/26/20 turmeric 400 mg capsule mg PO 05/26/20 celecoxib 100 mg capsule 100 mg PO BID cap 05/27/20 evolocumab 140 mg/mL subcutaneous pen injector 140 mg SUBCUT Q2W #2 ml 01/09/21 amoxicillin-pot clavulanate [Augmentin] 1 tab PO BID 5 Days #10 tab 03/21/21 hydrocodone-acetaminophen 1 tab PO BID 5 Days #10 tab 03/21/21 metronidazole [Flagyl] 500 mg PO TID 5 Days #15 tab 03/21/21 Hospital Course Summary of Care Provided Hospital Course: Patient presented with abdominal pain was found to have perforated diverticulitis. The patient was immediately taken to surgery and had laparoscopic sigmoid colectomy with anastomosis. Postoperatively patient was continued on antibiotics and a drain was left in place. When she started pas sing flatus she was started on a diet and then this diet was advanced until she was tolerating diet and discharged home. Weight / BMI Weight Weight: 117 lb 1.047 oz Body Mass Index (BMI) 20.7 ABG / Lab / Microbiology Data Result Diagrams: 03/21/21 05:08 03/21/21 05:08 Microbiology: Microbiology 03/18/21 13:18 Mucosa - Nose SARS-CoV-2 Antigen (Rapid) - Final Meaningful Use Info Meaningful Use Diagnoses (Choose all that apply): None applicable Discharge Plan Admission Admit Date/Time: 03/18/21 19:13 Attending Provider: Gianfranco Ventura Primary Care Provider: Arturo Marrero Instructions Additional Instructions / Restrictions: Recommended pain control regimen - May take 600 mg ibuprofen (Motrin) and then in 3-4 hours, may take 650 mg acetaminophen (Tylenol), then in 3-4 hours may take 600 mg ibuprofen, then in 3- 4 hours may take 650 mg acetaminophen and so on for 2-3 days May take narcotic pain medication for pain that is not controlled by above and at night for comfort through the night Leave dressings in place Sponge bathe only Do not soak - no tub baths/swimming Ice applied to areas of discomfort may help No lifting/pushing/pulling greater than 10 pounds for at least a month. Regular diet as tolerated, drink plenty of fluids. Avoid carbonated beverages for a few days as this will cause abdominal bloating and thus discomfort after o ur surgery. Please call Dr. Ventura's office for follow up - given drain is still in place Discharge Orders/Prescriptions Prescriptions: New hydrocodone-acetaminophen 5-325 mg tablet 1 tab PO BID 5 Days Qty: 10 RF: 0 amoxicillin-pot clavulanate [Augmentin] 875-125 mg tablet 1 tab PO BID 5 Days Qty: 10 RF: 0 metronidazole [Flagyl] 500 mg tablet 500 mg PO TID 5 Days Qty: 15 RF: 0 No Action famotidine 40 mg tablet 40 mg PO BID RF: 0 multivitamin [Daily Multi-Vitamin] tablet 1 tab PO DAILY RF: 0 denosumab [Prolia] 60 mg/mL syringe 60 mg SC [id number] RF: 0 potassium citrate 5 mEq (540 mg) tablet extended release 5 meq PO DAILY RF: 0 amlodipine 5 mg tablet 5 mg PO DAILY RF: 0 celecoxib 100 mg capsule 100 mg PO BID RF: 0 etodolac 400 mg tablet 400 mg PO DAILY RF: 0 turmeric 400 mg capsule PO RF: 0 Repatha SureClick 140 mg/mL pen injector 140 mg subcut Q2W Qty: 2 RF: 11 Referrals / Follow Up: Arturo Marrero MD [Primary Care Provider] - Disposition Discharge Orders: Discharge Patient (Routine); Ordered 03/21/21 Ordered By: Dr. Clarita Bruce
== END 2021-03-21 16:25 | disposition home or self-care (01) | DRG 331 ==
LOC: ED 13:21 → SDC 14:07 → AC 14:09 → SDC 21:25 → MS3 21:25
PROVIDERS: Surgery; Admitting Provider Surgery; Emergency Provider Emergency Medicine; PCP Family Medicine; Visit Provider Surgery
PROC: 0DTN0ZZ Resection of Sigmoid Colon, Open Approach (ICD-10-PCS; CPT 44204; principal; 2021-03-18 14:05)
DX: K57.20 Diverticulitis of large intestine with perforation and abscess without bleeding (principal); I10 Essential (primary) hypertension; E78.5 Hyperlipidemia, unspecified; K21.9 Gastro-esophageal reflux disease without esophagitis; M19.90 Unspecified osteoarthritis, unspecified site; M81.0 Age-related osteoporosis without current pathological fracture; Z79.899 Other long term (current) drug therapy
CPT/HCPCS: 36415; 74177; 80048; 80053; 81001; 83690; 83735; 85025; 87426; 88304; 88305; 88307; 93005; 99251; 99285; J7030; J7050; J7120; Q9967; A4216; C1760; G0463; J0744; J2405

== ENCOUNTER → 2021-04-06 15:55 | Outpatient (CLI) | payer MEDICARE, SELFPAY ==
[2020-05-27 14:13] VITALS: BMI 22.8
[2021-03-18 19:54] VITALS: BMI 20.7
--- NOTE | 2021-04-06 15:57 | BD_ITS ---
STUDY: DUAL ENERGY X-RAY ABSORPTIOMETRY / DXA REASON FOR EXAM: Female, 81 years old. 733.00OsteoporosisBONE DENSITY REASON FOR EXAM TECHNIQUE: Bone Mineral Density (BMD) measurements of lumbar spine and bilateral hips were obtained. COMPARISON: Comparison is made with prior study dated 10/18/2018. FINDINGS: Lumbar Spine (L1-L4): g/cm2 (0.855) / T-score (-1.1) / Z-score (1.4) Findings are suggestive of osteopenia with a low fracture risk. Left Femur Total: g/cm2 (0.772) / T-score (-1.4) / Z-score (0.7) Left Femoral Neck: g/cm2 (0.700) / T-score (-1.3) / Z-score (1.0) Right Femur Total: g/cm2 (0.739) / T-score (-1.7) / Z-score (0.4) Right Femoral Neck: g/cm2 (0.678) / T-score (-1.5) / Z-score (0.8) The T-Scores on the most recent prior examination were: Lumbar Spine (L1-L4): There has been improvement of bone density since the previous examination. Left Femur Total: which represents a worsening of 1.9%. Right Femur Total: which represents a worsening of 4.1%. BD/Dexa Bone Density Study IMPRESSION: The patient is considered osteopenic as outlined below according to World [employer] Organization (WHO) criteria with a moderate fracture risk. There has been worsening of bone density since the previous examination. Reference Information: The T-score is the number of standard deviations above or below the standard which is normal for young adults at their peak bone mineral density. The World Health Organization (WHO) interprets the T-scores as follows: Above -1 Normal bone density Between -1 and -2.5 Osteopenia Equal to / or below -2.5 Osteoporosis As a practical clinical guideline, osteopenia may be graded as follows: Mild -1 through -1.5 Moderate -1.6 through -2.0 Severe -2.1 through -2.4 The Z-score is the number of standard deviations above or below age-matched controls. A Z-score of less than -1.5 would be considered abnormal. References: 1. NIH Osteoporosis and Related Bone Diseases www osteo.org 2. International Society for Clinical Densitometry www iscd.org 3. National Osteoporosis Foundation www nof.org Electronically Signed: Chito Zuleta MD at 10:06 EDT , Service support ,
== END ==
PROVIDERS: PCP Family Medicine; Referring Provider Family Medicine; Visit Provider Family Medicine
DX: M81.0 Age-related osteoporosis without current pathological fracture (principal)
CPT/HCPCS: 77080

== ENCOUNTER 2021-06-09 07:43 | Emergency (ER) | payer MEDICARE, SELFPAY ==
[2021-06-09] VITALS (7 sets, daily range): BP systolic 113–121; BP diastolic 68–83; PULSE 87–92; RESP 18–21; TEMP 36.4; O2SAT 96–100; BMI 22.9; BMI 23.1
--- NOTE | 2021-06-09 07:45 | EKG12_ITS ---
Test Reason : STROKE Blood Pressure : / mmHG Vent. Rate : 091 BPM Atrial Rate : 091 BPM P-R Int : 174 ms QRS Dur : 090 ms QT Int : 364 ms P-R-T Axes : 048 000 037 degrees QTc Int : 447 ms Sinus rhythm with Premature atrial complexes Otherwise normal ECG Confirmed by NELLIE FRAGOSO, GABBY ([id number]), proposal editor GISSELLE HEAD ([id number]) on 06/14/2021 10:44:33 AM Referred By: FREDA Confirmed By:TROY BALLARD MD
--- NOTE | 2021-06-09 07:45 | CT_ITS ---
We are attempting to reach an attending provider to discuss findings. An addendum with communication details will be sent when the communication is complete. EXAM: CT HEAD WITHOUT INTRAVENOUS CONTRAST : 1940 CLINICAL INDICATION: Neuro deficit, acute, stroke suspected TECHNIQUE: Multiple axial images were obtained of the head without intravenous contrast. This CT exam was performed using one or more of the following dose reduction techniques: automated exposure control, adjustment of the mA and/or kV according to patient size, and/or use of iterative reconstruction technique. This report was created using [employer] report [employer] technology. COMPARISON: None. FINDINGS: BRAIN AND EXTRA-AXIAL SPACES: There is mild hypoattenuation in the periventricular white matter. No intra- or extra-axial hemorrhage. No evidence of acute infarct. No intracranial mass or mass effect. There is preservation of the antunez/white matter interface. Posterior fossa structures are unremarkable. No hydrocephalus. Basal cisterns are patent. BONES/JOINTS: Unremarkable. No discrete lytic or blastic abnormalities. SINUSES: There are chronic appearing calcifications within the maxillary sinuses. MASTOID AIR CELLS: Unremarkable. Clear. ORBITS: Visualized globes, extraocular muscles, optic nerves and retrobulbar fat appear unremarkable. CT/STROKE Brain/Head without Cont IMPRESSION: 1. No acute intracranial abnormality. There is mild underlying small vessel ischemia. 2. ASPECTS score 10 Individualized dose optimization techniques were used for this CT. at 0800 Reported and signed by: Gunner Tobar MD Electronically Signed: Gunner Tobar MD at 7:59 EDT Tel , Service support ,
--- NOTE | 2021-06-09 07:45 | RAD_ITS ---
EXAM: XR CHEST, 1 VIEW : 1940 CLINICAL INDICATION: Neuro deficit, acute, stroke suspected TECHNIQUE: Frontal view of the chest. This report was created using [employer] report generation technology. COMPARISON: None. FINDINGS: LUNGS AND PLEURAL SPACES: Unremarkable. No consolidation or edema. No pneumothorax. No effusion. HEART: Unremarkable. Cardiac silhouette not enlarged. MEDIASTINUM: Central airways and mediastinal contour are unremarkable. BONES/JOINTS: Unremarkable. SOFT TISSUES: Unremarkable. RAD/Chest 1 View IMPRESSION: No radiographic evidence of acute cardiopulmonary disease. at 0849 Reported and signed by: Gunner Tobar MD Electronically Signed: Gunner Tobar MD at 8:48 EDT Tel , Service support ,
--- NOTE | 2021-06-09 07:45 | CT_ITS ---
We are attempting to reach an attending provider to discuss findings. An addendum with communication details will be sent when the communication is complete. EXAM: CT ANGIOGRAPHY HEAD AND NECK WITH INTRAVENOUS CONTRAST : 1940 CLINICAL INDICATION: Neuro deficit, acute, stroke suspected TECHNIQUE: [place]/head and neck CT angiography protocol performed with intravenous contrast. This CT exam was performed using one or more of the following dose reduction techniques: automated exposure control, adjustment of the mA and/or kV according to patient size, and/or use of iterative reconstruction technique. This report was created using [employer] report generation technology. MIP reconstructed images were created and reviewed. CONTRAST: IV 100mL [id number] COMPARISON: None. FINDINGS: HEAD: RIGHT ANTERIOR CEREBRAL ARTERY: There is an absent right A1 segment of the anterior cerebral artery which is an anatomic variant No significant stenosis at the visualized segments. Anterior communicating artery is present. No aneurysm. RIGHT MIDDLE CEREBRAL ARTERY: Unremarkable. No significant stenosis at the visualized segments. No aneurysm. RIGHT POSTERIOR CEREBRAL ARTERY: Unremarkable. No occlusion or significant stenosis. No aneurysm. LEFT ANTERIOR CEREBRAL ARTERY: Unremarkable. No significant stenosis at the visualized segments. No aneurysm. LEFT MIDDLE CEREBRAL ARTERY: Unremarkable. No significant stenosis at the visualized segments. No aneurysm. LEFT POSTERIOR CEREBRAL ARTERY: Unremarkable. No occlusion or significant stenosis. No aneurysm. BASILAR ARTERY: Unremarkable. No significant stenosis. No aneurysm. GREAT VESSELS OF AORTIC ARCH: Unremarkable. Normal anatomy, patent. OTHER VASCULATURE: No vascular malformation. NECK: RIGHT COMMON CAROTID ARTERY: Unremarkable. No significant stenosis. No dissection or occlusion. RIGHT INTERNAL CAROTID ARTERY: There is extensive calcification in the carotid bulb bilaterally. This is slightly greater on the right than on the left with heavy calcification seen at the origin of the right internal carotid artery which narrows the vessel greater than 70% at its origin over 1 - 2 mm segment. There is no poststenotic dilatation. The internal carotid arteries were then widely patent bilaterally up to the skull base. RIGHT EXTERNAL CAROTID ARTERY: Unremarkable. No occlusion. RIGHT VERTEBRAL ARTERY: Unremarkable. No significant stenosis. No dissection or occlusion. LEFT COMMON CAROTID ARTERY: Unremarkable. No significant stenosis. No dissection or occlusion. LEFT INTERNAL CAROTID ARTERY: Unremarkable. No significant stenosis. No dissection or occlusion. LEFT EXTERNAL CAROTID ARTERY: Unremarkable. No occlusion. LEFT VERTEBRAL ARTERY: Unremarkable. No significant stenosis. No dissection or occlusion. LUNG APICES: Unremarkable as visualized. SOFT TISSUES: Unremarkable. CAROTID STENOSIS REFERENCE USING NASCET CRITERIA: % ICA stenosis = (1 - narrowest ICA diameter/diameter of distal cervical ICA) x 100. Moderate - 50-69% stenosis. Severe - 70-94% stenosis. Near occlusion - 95-99% stenosis. Occluded - 100% stenosis. CT/STROKE CTA Head AND Neck W/Con IMPRESSION: Heavy calcification of the carotid bulbs. There is a high-grade stenosis at the origin of the right internal carotid artery due to calcific plaque greater than 70% over a 1-2 mm segment there is no soft plaque identified. There is also calcification in the left carotid bulb but no evidence of stenosis. All other vessels are patent bilaterally. Individualized dose optimization techniques were used for this CT. at 0814 Reported and signed by: Gunner Tobar MD Electronically Signed: Gunner Tobar MD at 8:13 EDT Tel , Service support ,
--- NOTE | 2021-06-09 07:47 | ED.VIS.STROK ---
HPI History of Present Illness Chief Complaint: Neuro S/Sx Informant: patient and EMS Onset/Context/Timing Quality and Location: Positive for Left Arm Weakness, Left Leg Weakness and Slurred Speech Current Severity: Moderate Maximum Severity: Moderate Narrative Narrative: Patient presents via EMS as a stroke alert. Patient found this morning with slurred speech and left-sided weakness. Last known well was 10 PM last evening. They present shortly after 7:30 AM for evaluation. Patient denies headache. She states that she feels weird. [facility] Medical History Allergic rhinitis Essential (primary) hypertension GERD (gastroesophageal reflux disease) HLD (hyperlipidemia) Kidney stones Lumbar radiculopathy Nonrheumatic aortic (valve) stenosis Obstructive sleep apnea Osteoarthritis Osteoporosis Polyarthralgia Stenosis of right carotid artery Home Medications amlodipine 5 mg tablet 5 mg PO DAILY 05/22/18 [History Last Taken Unknown] famotidine 40 mg tablet 40 mg PO BID 05/22/18 [History Last Taken Unknown] multivitamin 1 tab PO DAILY 05/22/18 [History Last Taken Unknown] potassium citrate 5 mEq (540 mg) tablet,extended release 5 meq PO DAILY tab 05/22/18 [History Last Taken Unknown] etodolac 400 mg tablet 400 mg PO DAILY tab 05/26/20 [History Last Taken Unknown] turmeric 400 mg capsule mg PO 05/26/20 [History Last Taken Unknown] evolocumab 140 mg/mL subcutaneous pen injector 140 mg SUBCUT Q2W #2 ml 01/09/21 [Rx Last Taken Unknown] hydrocodone-acetaminophen 1 tab PO BID 5 Days #10 tab 03/21/21 [Rx Last Taken Unknown] Allergy/AdvReac Type Severity Reaction Status Date / Time ramipril [From Altace] Allergy Angioedema Verified 06/09/21 08:19 atorvastatin [From Lipitor] AdvReac myalgias Verified 06/09/21 08:19 cefuroxime [From Ceftin] AdvReac GI Upset Verified 06/09/21 08:19 isosorbide AdvReac headache Verified 06/09/21 08:19 [id number]-[id number]-Oxs Reductase AdvReac myalgias Verified 06/09/21 08:19 Inhibitor ANTIHISTAMINE, PT UNSURE WHAT Allergy Unknown Uncoded 06/09/21 08:19 Family History Father CVA (cerebral vascular accident) Mother CVA (cerebral vascular accident) Surgical History Esophageal dilatation History of appendectomy History of carpal tunnel surgery History of cholecystectomy History of lumbar surgery Hx of appendectomy S/P cholecystectomy Status post colectomy Social History Smoking Status: Never smoker alcohol intake: current ROS ROS ED Constitutional Constitutional ED: Denies chills or fever(s) Eyes Eyes: Denies change in vision ENT ENT ED: Denies sore throat Cardiovascular Cardiovascular: Denies chest pain Respiratory/Chest Respiratory/Chest: Denies cough or dyspnea Gastrointestinal Gastrointestinal: Denies abdominal pain, diarrhea, nausea or vomiting Genitourinary Genitourinary ED: Denies dysuria Musculoskeletal Musculoskeletal: Denies back pain Integumentary Denies rash Neurologic Neurologic: Reports weakness; Denies headache(s) Psychiatric Psychiatric: Denies anxiety or depression Hematologic/Lymphatic Hematologic/Lymphatic: Denies easy bleeding or easy bruising Allergic/Immunologic Allergic/Immunologic ED: Denies urticaria EXAM Physical Exam Const Vital Signs: 06/09/21 07:43 06/09/21 07:45 06/09/21 07:51 Temperature 97.5 F L Temperature Source Temporal Pulse Rate 92 91 Respiratory Rate 18 18 Blood Pressure 117/71 121/70 H Blood Pressure Mean 86 87 Pulse Ox 99 96 Oxygen Delivery Method Room Air Room Air 06/09/21 08:18 Temperature Temperature Source Pulse Rate 92 Respiratory Rate 18 Blood Pressure 113/68 Blood Pressure Mean 83 Pulse Ox 98 Oxygen Delivery Method Room Air Positive well nourished and well developed General Appearance ED: well developed Eyes PERRL and EOMs intact bilaterally Neck supple Chest Wall inspection of chest normal Resp normal respiratory effort and clear to auscultation bilaterally Cardio Rate: regular rate Rhythm: regular rhythm GI normal to inspection, nondistended, normoactive bowel sounds, soft to palpation and non-tender Extremity normal to inspection Neuro oriented x3 Neuro Narrative: See NIH stroke scale Sensorium / Orientation: alert Skin Rashes: no rashes STROKE Vital Signs/Narrative: Vital Signs Temp Pulse Resp BP Pulse Ox 06/09/21 08:18 92 18 113/68 98 06/09/21 07:51 91 18 121/70 H 06/09/21 07:45 96 06/09/21 07:43 97.5 F L 92 18 117/71 99 NIHSS Initial: 1a Level of Consciousness: 0 1b LOC Questions (Score 2 if aphasic/stupor): 0 1c LOC Commands (Only score 1st attempt): 0 2 Best Gaze (If aphasic, use reflexive mvmts.): 0 3 Visual: 0 4 Facial Palsy: 2 5 Motor Arm Right (UN = amputation/fusion): 0 5 Motor Arm Left: 3 6 Motor Leg Right: 0 6 Motor Leg Left: 3 7 Limb ataxia (Only + if out of proportion): 0 8 Sensory (Aphasia/stupor=0 or 1, coma=2): 0 9 Best Language: 0 10 Dysarthria (mute, coma=2, intubated=UN): 1 Total Score: 9 MDM MDM MDM Narrative Medical decision making narrative: Patient was a prehospital stroke alert. Patient was met at the EMS stores and sent directly to CT scan. Lab Data Attestation: I reviewed the patient's lab results. Labs: Laboratory Results - last 24 hr 06/09/21 06/09/21 06/09/21 07:50 07:50 07:50 WBC 9.2 RBC 5.23 Hgb 15.2 H Hct 47.2 H MCV 90.2 MCH 29.1 MCHC 32.2 RDW Std Deviation 42.6 RDW Coeff of Gurvinder 12.8 Plt Count 182 MPV 10.3 Immature Gran % (Auto) 0.300 Neut % (Auto) 81.8 H Lymph % (Auto) 8.1 L Bay % (Auto) 8.0 Eos % (Auto) 1.5 Baso % (Auto) 0.3 Absolute Neuts (auto) 7.5 Absolute Lymphs (auto) 0.74 L Nucleated RBC % 0 PT 13.5 INR 1.1 APTT 29.5 Sodium 136 Potassium 3.7 Chloride 98 Carbon Dioxide 30.0 Anion Gap 8 BUN 26 H Creatinine 1.05 H Estim Creat Clear Calc 30.69 Est GFR (MDRD) Af Amer 65 Est GFR (MDRD) Non-Af 54 L BUN/Creatinine Ratio 24.8 H Glucose 134 H Calcium 9.8 Troponin I High Sens 20 Radiography Diagnostic Testing: Radiology Impression Brain CT 06/09/21 07:45 IMPRESSION: 1. No acute intracranial abnormality. There is mild underlying small vessel ischemia. 2. ASPECTS score 10 Individualized dose optimization techniques were used for this CT. at 0800 Reported and signed by: Gunner Tobar MD Electronically Signed: Gunner Tobar MD at 7:59 EDT Tel , Service support , ADDENDUM: 06/09/21 0809 IMPRESSION: 1. No acute intracranial abnormality. There is mild underlying small vessel ischemia. 2. ASPECTS score 10 Individualized dose optimization techniques were used for this CT. at 0800 Reported and signed by: Gunner Tobar MD N.B. : The above Results were Read Back by Gunner Tobar MD to Dr. Dayana Clay MD, and understanding confirmed on 06/09/2021 08:02:42 (ET). Electronically Signed: Gunner Tobar MD at 7:59 EDT Tel , Service support , Head/Neck CTA 06/09/21 07:45 IMPRESSION: Heavy calcification of the carotid bulbs. There is a high-grade stenosis at the origin of the right internal carotid artery due to calcific plaque greater than 70% over a 1-2 mm segment there is no soft plaque identified. There is also calcification in the left carotid bulb but no evidence of stenosis. All other vessels are patent bilaterally. Individualized dose optimization techniques were used for this CT. at 0814 Reported and signed by: Gunner Tobar MD Electronically Signed: Gunner Tobar MD at 8:13 EDT Tel , Service support , ADDENDUM: 06/09/21 0821 IMPRESSION: Heavy calcification of the carotid bulbs. There is a high-grade stenosis at the origin of the right internal carotid artery due to calcific plaque greater than 70% over a 1-2 mm segment there is no soft plaque identified. There is also calcification in the left carotid bulb but no evidence of stenosis. All other vessels are patent bilaterally. Individualized dose optimization techniques were used for this CT. at 0814 Reported and signed by: Gunner Tobar MD N.B. : The above Results were Read Back by Gunner Tobar MD to Dayana Clay and understanding confirmed on 06/09/2021 08:14:38 (ET). Electronically Signed: Gunner Tobar MD at 8:13 EDT Tel , Service support , EKG Initial EKG: Attestation: I personally reviewed and interpreted this EKG as follows: Interpretation: Sinus Rhythm (Sinus at 91 with PACs. No acute ischemia.) Treatment and Re-Evaluation Comments:: Patient and now report that the patient has been ill for the last several days feeling generally weak. They were planning to get tested for Covid today. Today patient had significant left-sided deficit. Patient was examined with [facility] neurology on the computer. Deficits appear to be improving with greater strength noted in her left arm and left leg. CTA reveals greater than 70% stenosis at the origin of the right ICA secondary to heavy calcification. With patient having left-sided deficits and this finding neurologist would prefer to have the patient done at [facility] for intervention and treatment. Aspirin and Plavix will be given prior to transport. This is all been discussed with patient and at bedside. Critical Care Time Critical Care Time: Yes Critical care time (excluding procedures): 30-74 minutes (30 minutes), Including time spent:, Discussing w/Patient &/or Family/Newspaper Library Manager, Discussing w/Consultants, Arranging Admission or Transfer and Performing Direct Patient Care at Bedside Discharge Plan Triage Chief Complaint: Neuro S/Sx ED Provider: Dayana Clay Dx/Rx/DC Orders Clinical Impression: Acute CVA (cerebrovascular accident), Carotid stenosis, right Prescriptions: No Action famotidine 40 mg tablet 40 mg PO BID RF: 0 multivitamin [Daily Multi-Vitamin] tablet 1 tab PO DAILY RF: 0 potassium citrate 5 mEq (540 mg) tablet extended release 5 meq PO DAILY RF: 0 amlodipine 5 mg tablet 5 mg PO DAILY RF: 0 etodolac 400 mg tablet 400 mg PO DAILY RF: 0 turmeric 400 mg capsule 400 mg PO DAILY RF: 0 hydrocodone-acetaminophen 5-325 mg tablet 1 tab PO BID 5 Days Qty: 10 RF: 0 Repatha SureClick 140 mg/mL pen injector 140 mg subcut Q2W Qty: 2 RF: 11 Primary Care Provider: Arturo Marrero Referrals: Arturo Marrero MD [Primary Care Provider] - Disposition Disposition: Acute Care Hospital Discharge Location: [facility]
[2021-06-09 08:08] LABS: Absolute Lymphocyte Count 0.74 X10^3/uL (0.83-4.51); Absolute Neutrophil Count 7.5 X10^3/uL (2.0-7.7); Basophil# 0.03 X10^3/uL; Basophil% 0.3 % (0-1); Eosinophil# 0.14 X10^3/uL; Eosinophils% 1.5 % (0-5); Hematocrit 47.2 % (37-47); Hemoglobin 15.2 g/dL (12.0-15.0); Lymphocyte # 0.74 X10^3/ul (0.83-4.51); Lymphocyte % 8.1 % (19-41); Mean Corp Hgb Conc 32.2 g/dL (32-36); Mean Corpuscular Hgb 29.1 pg (27.0-32.0); Mean Corpuscular Volume 90.2 fL (81-99); Mean Platelet Vol. 10.3 fl (6.2-12.0); Monocyte# 0.73 X10^3/uL; NRBC Flagged by Analyzer 0 % (0-5); Neutrophil # 7.49 X10^3/uL (2.7-7.7); Neutrophil % 81.8 % (47-70); Platelet Count 182 K/mm3 (150-450); RBC Distribution Width CV 12.8 % (11.6-14.6); RBC Distribution Width SD 42.6 fl (35.1-43.9); Red Blood Count 5.23 M/mm3 (4.2-5.4); White Blood Count 9.2 K/mm3 (4.4-11.0)
[2021-06-09 08:20] LABS: International Normalized Ratio 1.1; Prothrombin Time (Protime)PT. 13.5 SECONDS (11.7-14.9)
[2021-06-09 08:21] LABS: Partial Thromboplast Time 29.5 Seconds (24.1-36.2)
[2021-06-09 08:25] LABS: Anion Gap 8 (5-15); BUN 26 mg/dL (7-18); BUN/Creat Ratio 24.8 RATIO (10-20); Calcium,Total 9.8 mg/dL (8.5-10.1); Chloride 98 mmol/L (98-107); Creatinine, Serum 1.05 mg/dL (0.55-1.02); EST Glomerular Filtration Rate 54 mL/min (>60); Est Glom Filt Rate - Afr Amer 65 mL/min (>60); Estimated Creatinine Clearance 30.69 ml/min; Glucose 134 mg/dL (74-106); Potassium 3.7 mmol/L (3.5-5.1); Sodium Level 136 mmol/L (136-145); Troponin-I HS 20 pg/mL (3.0-54.0)
--- NOTE | 2021-06-09 08:30 | NURSING ---
CALLED [facility], ETA IS 20 MIN
[2021-06-09] MEDS: Clopidogrel Bisulfate 75 MG Tablet 150 MG PO (08:36)
[2021-06-09] MEDS: Aspirin 325 MG Tablet PO (08:36)
== END 2021-06-09 09:09 | disposition short-term general hospital (02) ==
PROVIDERS: Emergency Provider Emergency Medicine; PCP Family Medicine
DX: I63.231 Cerebral infarction due to unspecified occlusion or stenosis of right carotid arteries (principal); R29.810 Facial weakness; R47.81 Slurred speech; G81.94 Hemiplegia, unspecified affecting left nondominant side; I10 Essential (primary) hypertension; R29.709 NIHSS score 9; K21.9 Gastro-esophageal reflux disease without esophagitis; M81.0 Age-related osteoporosis without current pathological fracture; M19.90 Unspecified osteoarthritis, unspecified site; Z79.899 Other long term (current) drug therapy
CPT/HCPCS: 70450; 70496; 70498; 71045; 80048; 84484; 85025; 85610; 85730; 87426; 93005; 99285; Q9967; A4216

== ENCOUNTER 2021-07-26 15:00 | Outpatient (RCR) | payer MEDICARE, SELFPAY ==
--- NOTE | 2021-06-30 15:40 | HP.PTEVAL ---
Patient's Visit Information BENNY LAMBERT is a 81 year old F referred to Physical Therapy by Dr. Arturo Marrero MD with a diagnosis of RIGHT MCA CVA ,MILD WEAKNESS IN ARM AND LEG. Date of Evaluation: 06/30/21 Physical Therapist: Saeid Sprague, PT, Cert MDT, OCS - Visit Plan Frequency: 2x /Week Duration: 8 WEEKS Plan: PRECAUTION : LEFT KNEE PAIN. PT INTERVENTIONS PROGRESSIVE BALANCE TRAINING,STRENGTHENING LLE HIP/KNEE,FUNCTIONAL STRENGTHENING AND ENDURANCE PROGRAM - Subjective This 81 y/o female presents to physical therapy with right MCA CVA ,mild weakness in arm leg. Patient has multiple comorbities to include left knee pain which patient was to have cortisone injection left knee prior to knee injection ,lumbar fusion 2014. Patient had severe diverticulitis required s/p colon resection in March 2021. Patient had CVA had syncope episode ER [facility] Jun 10 then transferred [facility] . 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 Patient did have stent after 10 days for blood thinner. Patient d/c to home . Patient has weakness left side and also has knee pain due to DJD .Patient main issue is walking ,standing ,stairs . Difficulty with squatting /kneeling. Patient is I with bathing ,dressing and does cooking and cleaning. Denies paresthesia /tingling. No falls. Dizziness denies . Hobbies biking on trails. Patient main issue is weakness with walking along with left knee pain. Patient condition affects QOL and function. SOCIAL: . VOCATION: retired - Pain Left Knee Pain Intensity (Out of 10): 8 Pain Intensity Range: 10 - Objective POSTURE: WFL. GAIT: reciprocal pattern antalgic gait left side. BALANCE: GOOD -. MMT: quads/hams 4-/5,hip flexion ,hip abduction 4-/5,ankld 4/5. AROM: knee flexion 0-130 degrees left. FLEXABLITY: hamstrings WFL - Balance/Special Test Scores Functional Gait Assessment Score: 17 % Disability: 43.3400 CATSIB Score (Max score 120 seconds): 70 Lower Extremity Functional Score: 29 - Goals Goal 1:: I with HEP manage condition Goal Time Frame: 6-8 Weeks Goal 2:: Patient to normalize gait with less antalgic gait 75 % Goal Time Frame: 6-8 Weeks Goal 3:: Patient to improve CATSIB by 5 points to improve gait and balance Goal Time Frame: 6-8 Weeks Goal 4:: Patient to improve functional gait assessment score by 5-10 points to improve gait Goal Time Frame: 6-8 Weeks Goal 5:: Patient to improve LFES score by 5 points or > to improve QOL Goal Time Frame: 6-8 Weeks - Rehabilitation Potential Physical Therapy Diagnosis: This 81 y/o from CVA along with other comorbities influences condition with left knee pain weakness left leg thus impairs walking and standing ,stairs affects ADLS' will benefit from skilled PT Rehabilitation Potential: Good - Anticipated Interventions Patient/Client Instruction: Educate patient on: Condition, Plan of Care For the Purpose of:: To decrease pain, To increase ROM, To improve muscle performance and motor function, To improve ability to perform ADL's, To improve performance and independence with ADL's, To improve ability of physical actions for home/community/work/leisure, To improve health of tissue, To decrease soft tissue restriction, To increase flexibility/ROM Therapeutic Exercise to Include: Strength training, Power training, Endurance training, Balance training, Flexibilty training, Active ROM Comment: QUADS/HAMS /HIP For the Purpose of:: To decrease pain, To improve muscle performance and motor function, To improve ability to perform ADL's, To increase tolerance to activity/condition/position, To improve performance and independence with ADL's, To improve ability of physical actions for home/community/work/leisure, To improve health of tissue, To increase flexibility/ROM, To improve endurance, To improve balance, To improve safety with gait, To assume or resume ADL's, To improve tolerance to ADL's Thank you for the opportunity to evaluate your patient. For Medicare and Medicare HMO plans, please review the plan of care and approve it. It will need to be FAXED BACK to us at [phone] for Medicare purposes. For Medicare only, by signing this I certify the plan of care. Please let me know if there are questions or concerns regarding this plan of care. Physician Signature: Date:
--- NOTE | 2021-07-01 07:33 | HP.OTEVAL_ITS ---
Patient's Visit Information BENNY LAMBERT is a 81 year old F, referred to Occupational Therapy by Dr. Arturo Marrero MD, with a diagnosis of CVA. Date of Evaluation: 06/30/21 Occupational Therapist: Cadence Cooney, ERIK/Dewayne, CHT - Subjective This 81 year old female was seen for OT eval with dx of CVA. pt states she had cva 06/09/21. pt states she was at home and her noticed her slurred speech, called the squad- and taken to ER. pt states she feels her strength has returned but she does get tired. pt states she has pain in left knee due to OA and was to get injection but was in hospital at time of the apt. pt to have injection in Nov. 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 pt lives with . Pts is here today and agrees with pt that she does not need for OT services. - ADLs Comments: pt currently performing ADLs at a IND level. - ROM ROM Comments: pt demo ROM of BUE WNL - Strength Shoulder: right 4+/5 left 4+/5 Elbow: right 4+/5 left 4+/5 Forearm: right 4+/5 left 4+/5 Acoustical Tile Patternmaker: right 23# left 23# Lateral Pinch: right 2# left 2# Strength Comments: no deficits in muscle testing - Sensation Sensation Comments: denies - In-Hand Manipulation Finger to Palm Translation: Normal - Right, Normal - Left Palm to Finger Translation: Normal - Right, Normal - Left Shift: Normal - Right, Unable - Right - Quick DASH-Disab of Arm,Shoulder& Hand Quick DASH Score: 4.5450 - Rehabilitation General Assessment: pt reports symptoms have resolved. pt at this time does not demo a need for skilled OT services. but will have Physical therapy to increase gait and assist with returning to biking. - Anticipated Interventions Other Other Interventions: pt does not demo need for skilled OT services - Visit Plan General Plan: Pt will have physical therapy services at this time to increase ambulation distance and biking. TEXT: Thank you for the opportunity to evaluate your patient. For Medicare and Medicare HMO plans, please review the plan of care and approve it. It will need to be FAXED BACK to us at [phone] for Medicare purposes. Please let me know if there are questions or concerns regarding this plan of care. Physician Signature: Date:
--- NOTE | 2021-07-26 15:48 | HP.PTDCSUM ---
It has been my pleasure to treat BENNY LAMBERT referred by Dr. Arturo Marrero MD, with the diagnosis of RIGHT MCA CVA ,MILD WEAKNESS IN ARM AND LEG for a total of 7 visit(s). Discharge Date: 07/26/21 Please see the following information for a summary of their discharge status. Subjective: Doing well ..ready for d/c Left Knee Pain Intensity (Out of 10): 2 % Improvement: 70 Objective/Function: Sofie tx well with balance and strengthening to improve gait with patient with less antalgic gait. POSTURE: knee Varus. GAIT: reciprocal pattern mild antalgic gait left side. MMT: quads/hams/hip /ankle 4/5 Goal 1:: I with HEP manage condition Goal Progress: Goal Met Goal 2:: Patient to normalize gait with less antalgic gait 75 % Goal Progress: Goal Met Goal 3:: Patient to improve CATSIB by 5 points to improve gait and balance Goal Progress: Not Progressing Goal 4:: Patient to improve functional gait assessment score by 5-10 points to improve gait Goal Progress: Goal Met Goal 5:: Patient to improve LFES score by 5 points or > to improve QOL Goal Progress: Goal Met Plan: D/C TO HEP Discharge Comments: [facility] If there are questions or concerns regarding this patient's physical therapy, please feel free to call me at [phone]. Thank you for the referral of this patient. Sincerely, Saeid Sprague, PT, Cert MDT, OCS Balance/Gait/Functional tests - Balance/Special Test Scores Functional Gait Assessment Score: 27 % Disability: 10.0000 CATSIB Score (Max score 120 seconds): 120 Lower Extremity Functional Score: 55
== END 2021-07-26 19:00 | disposition home or self-care (01) ==
LOC: PT 15:00
PROVIDERS: PCP Family Medicine; Referring Provider Family Medicine; Visit Provider Family Medicine
DX: R29.898 Other symptoms and signs involving the musculoskeletal system (principal); Z86.73 Personal history of transient ischemic attack (TIA), and cerebral infarction without residual deficits
CPT/HCPCS: 97110; 97162; 97166

== ENCOUNTER → 2021-12-30 | Outpatient (CLI) | payer MEDICARE, SELFPAY ==
[2021-12-30 15:48] LABS: Absolute Lymphocyte Count 1.44 X10^3/uL (0.83-4.51); Absolute Neutrophil Count 5.5 X10^3/uL (2.0-7.7); Basophil# 0.05 X10^3/uL; Basophil% 0.7 % (0-1); Eosinophil# 0.06 X10^3/uL; Eosinophils% 0.8 % (0-5); Hematocrit 40.8 % (37-47); Hemoglobin 13.4 g/dL (12.0-15.0); Lymphocyte # 1.44 X10^3/ul (0.83-4.51); Lymphocyte % 19.1 % (19-41); Mean Corp Hgb Conc 32.8 g/dL (32-36); Mean Corpuscular Hgb 28.2 pg (27.0-32.0); Mean Corpuscular Volume 85.7 fL (81-99); Mean Platelet Vol. 10.1 fl (6.2-12.0); Monocyte# 0.53 X10^3/uL; NRBC Flagged by Analyzer 0 % (0-5); Neutrophil # 5.45 X10^3/uL (2.7-7.7); Neutrophil % 72.1 % (47-70); Platelet Count 354 K/mm3 (150-450); RBC Distribution Width CV 13.7 % (11.6-14.6); RBC Distribution Width SD 43.1 fl (35.1-43.9); Red Blood Count 4.76 M/mm3 (4.2-5.4); White Blood Count 7.6 K/mm3 (4.4-11.0)
[2021-12-30 15:55] LABS: ALB/GLOB Ratio 1.2 RATIO (0.9-2.4); AST(SGOT) 21 U/L (15-37); Alanine Aminotransfer ALT/SGPT 22 U/L (13-56); Alkaline Phosphatase 54 U/L (45-117); Anion Gap 5 (5-15); BUN 21 mg/dL (7-18); BUN/Creat Ratio 27.9 RATIO (10-20); Calcium,Total 9.1 mg/dL (8.5-10.1); Chloride 106 mmol/L (98-107); Cholesterol 192 mg/dL (200); Creatinine, Serum 0.75 mg/dL (0.55-1.02); EST Glomerular Filtration Rate 79 mL/min (>60); Est Glom Filt Rate - Afr Amer 95 mL/min (>60); Globulin 3.2 g/dL (2.2-4.2); Glucose 104 mg/dL (74-106); High Density Lipoprotein 68 mg/dL; Potassium 4.1 mmol/L (3.5-5.1); Protein, Total 7.2 g/dL (6.4-8.2); Sodium Level 137 mmol/L (136-145); Triglycerides 129 mg/dL; Very Low Density Lipoprotein 26 mg/dL (5-40)
== END | disposition home or self-care (01) ==
LOC: MFPLAB 12:03
PROVIDERS: PCP Family Medicine; Referring Provider Family Medicine; Visit Provider Family Medicine
DX: M13.0 Polyarthritis, unspecified (principal); E78.00 Pure hypercholesterolemia, unspecified; Z86.73 Personal history of transient ischemic attack (TIA), and cerebral infarction without residual deficits
CPT/HCPCS: 36415; 80053; 80061; 85025

== ENCOUNTER → 2022-02-10 | Outpatient (CLI) | payer MEDICARE, SELFPAY ==
--- NOTE | 2022-02-10 07:23 | CT_ITS ---
STUDY: CT LEFT LOWER EXTREMITY WITHOUT CONTRAST REASON FOR EXAM: Varus deformity, left knee osteoarthritis, surgical planning. TECHNIQUE: Transaxial CT imaging of the lower extremity was performed. Coronal and sagittal images were reformatted. Individualized dose optimization techniques were used for this CT. COMPARISON: None. FINDINGS: Knee: There are marginal osteophytes, subchondral eburnation and joint space narrowing of the medial femorotibial compartment (coronal reconstruction 25). There are marginal osteophytes and preservation of joint space of the lateral femorotibial compartment. There are marginal osteophytes and mild joint space narrowing of the medial aspect of the patellofemoral compartment (axial image 254). There is chondrocalcinosis of the medial meniscus. There is a small joint effusion. There is vascular calcification Hip: There is left hip arthrosis with joint space narrowing (coronal reconstructions 54). There is a pessary device as on the pelvic CT 03/18/2021. Ankle: Normal tibiotalar, posterior subtalar, talonavicular and calcaneocuboid articulations. CT/Extremity Lower without Contra IMPRESSION: Left knee osteoarthritis. Electronically Signed: Dex Aponte MD at 14:57 EDT ,
== END | disposition home or self-care (01) ==
LOC: CT 07:17
PROVIDERS: PCP Family Medicine; Visit Provider Specialist
DX: M21.162 Varus deformity, not elsewhere classified, left knee (principal); M17.12 Unilateral primary osteoarthritis, left knee
CPT/HCPCS: 73700

== ENCOUNTER 2022-02-23 06:54 | Observation (INO) | payer MEDICARE, SELFPAY ==
--- NOTE | 2022-02-10 07:22 | RAD_ITS ---
EXAM: XR CHEST, 2 VIEWS CLINICAL INDICATION: PRE-OP TECHNIQUE: Frontal and lateral views of the chest. This report was created using PANOSOL report generation technology. COMPARISON: 06/09/2021 FINDINGS: LUNGS AND PLEURAL SPACES: Unremarkable. No consolidation or edema. No pneumothorax. No effusion. HEART: Unremarkable. Cardiac silhouette not enlarged. MEDIASTINUM: There is a small hiatal hernia present. BONES/JOINTS: Unremarkable. SOFT TISSUES: Unremarkable. RAD/Chest PA and Lateral IMPRESSION: No acute findings in the chest. Electronically Signed: Gunner Tobar MD at 8:51 EDT ,
--- NOTE | 2022-02-10 07:22 | EKG12_ITS ---
Test Reason : Blood Pressure : / mmHG Vent. Rate : 073 BPM Atrial Rate : 073 BPM P-R Int : 168 ms QRS Dur : 090 ms QT Int : 410 ms P-R-T Axes : 033 018 040 degrees QTc Int : 451 ms Normal sinus rhythm Normal ECG Confirmed by JANES JAVIER MD ([id number]), film editor supervisor GISSELLE HEAD ([id number]) on 02/10/2022 1:31:48 PM Referred By: GRACE Confirmed By:JANES JAVIER MD
[2022-02-10 08:31] LABS: Absolute Lymphocyte Count 1.27 X10^3/uL (0.83-4.51); Absolute Neutrophil Count 7.1 X10^3/uL (2.0-7.7); Basophil# 0.05 X10^3/uL; Basophil% 0.5 % (0-1); Eosinophil# 0.08 X10^3/uL; Eosinophils% 0.9 % (0-5); Hematocrit 44.3 % (37-47); Hemoglobin 14.1 g/dL (12.0-15.0); Lymphocyte # 1.27 X10^3/ul (0.83-4.51); Lymphocyte % 13.5 % (19-41); Mean Corp Hgb Conc 31.8 g/dL (32-36); Mean Corpuscular Hgb 27.8 pg (27.0-32.0); Mean Corpuscular Volume 87.4 fL (81-99); Mean Platelet Vol. 9.3 fl (6.2-12.0); Monocyte# 0.91 X10^3/uL; Monocyte% 9.7 % (0-10); NRBC Flagged by Analyzer 0 % (0-5); Neutrophil # 7.06 X10^3/uL (2.7-7.7); Platelet Count 422 K/mm3 (150-450); RBC Distribution Width CV 12.7 % (11.6-14.6); RBC Distribution Width SD 40.2 fl (35.1-43.9); Red Blood Count 5.07 M/mm3 (4.2-5.4); White Blood Count 9.4 K/mm3 (4.4-11.0)
[2022-02-10 08:48] LABS: Hemoglobin A1c 5.6 % (3.8-5.6)
[2022-02-10 08:51] LABS: Magnesium 1.9 mg/dL (1.6-2.6)
[2022-02-10 08:54] LABS: Anion Gap 5 (5-15); BUN 30 mg/dL (7-18); BUN/Creat Ratio 35.5 RATIO (10-20); Calcium,Total 9.6 mg/dL (8.5-10.1); Chloride 106 mmol/L (98-107); Creatinine, Serum 0.84 mg/dL (0.55-1.02); EST Glomerular Filtration Rate 69 mL/min (>60); Est Glom Filt Rate - Afr Amer 83 mL/min (>60); Glucose 102 mg/dL (74-106); Potassium 4.4 mmol/L (3.5-5.1); Sodium Level 140 mmol/L (136-145)
--- NOTE | 2022-02-18 08:38 | HP.PCM_ITS ---
History and Physical History and Physical? Patient Name: Angelique Devries: 1940 From:? DAVID GONZALES PA-C? DATE OF SURGERY:? 02/23/2022 SCHEDULED PROCEDURE: Robotic-assisted left total knee arthroplasty HISTORY OF PRESENT ILLNESS: Patient is an 82-year-old female here her ongoing left knee pain.? Since 2017.? It is intermittent, dull pain which worsens with walking or standing for long periods of time.? Sitting, resting, elevating the leg does help to alleviate some pain.? She has found that it has led to decrease in functional limitations leisure activities such as biking outside due to her knee pain.? She attempted rest, ice, heat, elevation, cortisone injection, viscosupplementation injections, home exercises and oral medications.? She has failed conservative treatment options at this time and would like to the wrist proceed with a robotic-assisted left total knee arthroplasty. REVIEW OF SYSTEMS: Review Of Systems: Constitutional: Reports weight change, but denies change in appetite and fever. Cardiovasular: Denies chest pain, heart murmur and irregular heartbeat. Respiratory: Denies cough, pneumonia, shortness of breath, tuberculosis and wheezing. Gastrointestinal: Reports dysphagia and heartburn, but denies constipation, diarrhea, nausea, rectal itching, bloody stools and vomiting. Genitourinary: . (F Genital Sx) Reports change in urinary habits, but denies incontinence. Musculoskeletal: Reports gait disturbance and trouble walking, but denies leg swelling, pain and weakness. Skin: Denies Raynaud's, history of shingles and tattoo. Neurological: Denies ambulatory dysfunction, dizziness, numbness/tingling and tremor. Psychiatric: Denies anxiety, insomnia and stress. Hematologic/Lymphatic: Denies anemia, bleeding/bruising tendency and past transfusion. Reviewed and updated. PAST MEDICAL HISTORY: Advance Care Plan: Other Directive, LIVING WILL Effective Date: 09/09/2021 Past Medical History: Medical Problems: Arthritis Stroke - (06/2021) Covid-19 Vaccinated Accidents: None Surgical Hx: Gallbladder - (2014) [facility] Hysterectomy - (1974) Kidney Stones - (1967) Carpal Tunnel Release LT - [facility] Anesthesia Complications: None Assistive Devices: Dentures, Glasses Reviewed and updated. 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 Personal Habits:? Cigarette Use: Never Smoked Cigarettes.Smokeless Tobacco: Never Used Smokeless Tobacco.E-Cigarette Use: Never used.Alcohol: Occasionally.Drug Use: Denies Use.Enjoy Exercising: Daily. Reviewed, no changes. VITALS: Ht: 60.3 Wt: 120lb 4oz Wt k.545 BMI: 23.2 BP: 130/72 Pulse: 93 Resp: 16 T: 98.2 T: 36.8C Pain Level: 2 O2SatR: 97 ALLERGIES: No Known Drug Allergy? MEDICATIONS: Celecoxib 200 mg 1 tab by mouth daily with food, Etodolac 400 mg 1 by mouth twice a day, Ra Vitamin D-3 25 mcg (1000 Ut) 1po qday, Amlodipine Besylate 10 mg 1 by mouth every day, Prolia 60 mg/ml, Aspirin 81 Low Dose 81 mg 1 by mouth every day PRE-OP EXAM:? General appearance:NORMAL? ? ? Other: Eyes: Conjunctivae and lids: NORMAL? Pupils: ERR Ears, Nose, Mouth, and Throat: NORMAL? Other: Inspection of lips, teeth and gums: NORMAL? ?Other: Neck: Examination of neck: no masses noted. Respiratory: Assessment of respiratory effort: NORMAL? ?Other: ?Auscultation of lungs: clear to auscultation no wheezes, rhonchi or rales. Cardiovascular:? Auscultation of heart: regular rate and rhythm, no murmurs, gallops or rubs. Exam of carotid arteries: NORMAL? ?Other: Gastrointestinal:? Exam of abdomen: soft, nontender, nondistended bowel sounds present. Lymphatic:? Palpation of nodes in neck:? NORMAL? ? ?Other: ? Palpation of nodes in Axillae: NORMAL? ?Other: Neurological: see below Psychiatric:? Orientation to time, place and person: NORMAL? ? ?Other: ?Mood and affect: NORMAL? ?Other: PHYSICAL EXAMINATION: ?Exam: Const: Appears healthy.? No signs of apparent distress present.? Alert and oriented x 3.? Musculo: Mild antalgic gait? Knees: ?Insp/Palp: Left knee: large effusion. Tenderness over the medial joint line. Motion is 5-130 degrees Partially correctable varus alignment. Stable to varus and valgus stress. Firm end point with anterior posterior drawer testing.?? Skin: Skin is warm, dry and intact.? Neuro: Sensation to light touch is intact in the lower extremities deep peroneal, lower extremities dorsal cutaneous, lower extremities saphenous, lower extremities sural and lower extremities tibial nerve distribution.? ?? IMAGING STUDIES: ?4 views of the left knee with sunrise, lateral, and bilateral standing AP and tunnel views reviewed reveal varus alignment and medial joint space narrowing, subchondral sclerosis and osteophyte formation consistent with severe stage IV medial compartment osteoarthritis With associated bony erosions of the medial compartment.? There is also medial femoral condyle area concerning for severe erosion versus subchondral bony collapse (potential evidence of OCD or AVN). IMPRESSION: 1.? Grade 4 osteoarthritis left knee 2 stroke?aspirin 81 mg daily PLAN: Patient denies history of DVT or PE, open wounds or sores over the body, no allergies to antibiotics and no current antibiotic use. No current dental issues Aspirin 81 twice a day ?4 weeks for DVT prophylaxis postoperatively At this time patient has consented to proceed with a robotic-assisted left total knee arthroplasty.? Dr. Dixon did discuss and review with the patient all treatment options including surgical versus nonsurgical options.? Patient does wish to proceed with the above-stated procedure.? Potential risk, benefits, and complications of the procedure were discussed in detail including but not limited to , infection, nerve and blood vessel damage, persistent pain, numbness, tingling, paresthesias, blood clot, pulmonary embolism, and requirement for possible further surgery.? The patient expressed full understanding and has no further questions for the doctor.? Patient does agree to proceed with the above-stated procedure and has signed the surgery consent form. I have reviewed the [place] Automated Rx Reporting System (OARRS) report for this patient for refill pattern and other prescriber involvement as part of the appropriate surveillance for the provision of acute and chronic controlled medications.? The report was requested and reviewed on the date of this entry and was considered in the prescribing process. Discussed with the patient the risks associated with the COVID-19 virus including the risk of exposure while at the hospital.? The patient was reassured local hospitals have low infection rates and taken all necessary precautions to limit patient exposure to COVID-19.? Limiting the patient's time in the hospital may decrease their exposure to COVID-19.? The patient was notified that we will need to comply with any screening or testing the hospital wishes to perform and that surgery may be delayed for any positive test results. ___? I have re-examined the patient.? There are no clinical changes since date of exam. ___? See progress notes for changes. ___? Dictated on admission Date: ? ? ?Time: Signature:
[2022-02-23] VITALS (15 sets, daily range): BP systolic 102–146; BP diastolic 53–109; PULSE 54–91; RESP 14–18; TEMP 36.3–36.9; O2SAT 96–100; BMI 23.6
--- NOTE | 2022-02-23 | KNEE_PTH ---
PATIENT: BENNY LAMBERT LOC: [facility] U#:[id number] AGE/SX: 82/F ROOM: [facility] RE02/23/[address]: Dr. Jarrett Dixon MD : 1940 BED: 1 DIS: 02/24/2022 SPEC #: [id number] RECD: 02/23/22 12:54 STATUS: ROSHAN REJennifer #: [id number] EVETTE: 02/23/22 00:[address]: Jarrett Dixon DEPT: SURGICAL PATHOLOGY RECD BY: Morro Holliday ENTERED: 02/23/22 12:55 SP TYPE: TOTAL KNEE OTHR DR: MD Dr. Sebastián Ragland MD Tissues: Knee, NOS Procedures: Decalcification bone/plaque Surgery Specimen Level IV HEADER OPERATION: ERAS, total knee replacement robotic arm assist PRE-OP DIAGNOSIS: Left knee primary osteoarthritis TISSUE SUBMITTED: Debrided bone and tissue left knee MICROSCOPIC DIAGNOSIS Bone and tissue, left knee, total knee replacement/resection: Pieces of bone with degenerative osteoarthritic changes. CORTES:amber 02/25/2022 MICROSCOPIC DESCRIPTION Slides are reviewed. GROSS DESCRIPTION Received is one container designated debrided bone and tissue left knee. The specimen consists of multiple fragments of obando-yellow bone measuring in aggregate 10 x 10 x 4 cm. No soft tissue is identified. A number of bony fragments contain articular surfaces consistent with tibial plateau and femoral condyle and displaying prominent osteophyte formation, eburnation, and bone erosion. Structures Technician sections are submitted in one cassette after decalcification. / CORTES:amber 02/23/2022 TC:5 CPT: 23547, 36491
[2022-02-23] MEDS: Celecoxib 200 MG Capsule 400 MG PO (06:35)
[2022-02-23] MEDS: Lactated Ringers 1,000 ML 999 ML IV ×2 (06:35→09:15)
[2022-02-23] MEDS: Gabapentin 600 MG Tablet PO (06:35)
[2022-02-23] MEDS: Acetaminophen 500 MG Tablet 1000 MG PO ×3 (06:36→22:24)
--- NOTE | 2022-02-23 07:00 | OP.PCM_ITS ---
Report of Operation Date of Procedure: 02/23/22 Pre-Operative Diagnosis: Left knee primary osteoarthritis Post-Operative Diagnosis: Left knee primary osteoarthritis Surgery/Procedure Performed:: Left knee minimally invasive robotic assisted total knee replacement Description of Surgical Findings:: Stable knee with good patella tracking Surgeon: Jarrett Dixon quarryman: Denea Lopez Type of Anesthesia: Spinal Anesthesiologist: Jarrett Desir Special Medications: 2 g Ancef, 1 g TXA at incision, 1 g TXA closure, 10 mg Decadron, joint cocktail (5 mg Duramorph, 30 mL of 0.5% Ropivicaine, 1000 units of epinephrine, 30 mg of Toradol) Specimen's removed: Bony cuts Estimated Blood Loss (mL): 50 Fluids Replaced: 600 mL crystalloid Description of Procedure: Implants used: 1. Tiffany size 4 triathlon cruciate retaining distal femoral press-fit component 2. [place] size 3 press-fit tritanium tibial baseplate 3. Tiffany X3 9 mm CS polyethylene 4. Tiffany X3 29 mm asymmetric patella Brief history operative indications: 82-year-old female with history of left knee osteoarthritis with radiographic findings with loss of joint space, osteophyte formation and subchondral sclerosis. Failed conservative measures as mentioned in the H&P. Discussion of total knee arthroplasty as well as risk and benefits were discussed the patient including but not limited to blood loss, DVTs, PEs, neurovascular damage, general risk of anesthesia including loss of life, and stiffness or instability were discussed with patient. Patient demonstrated understanding and was able to sign informed consent. Procedure: On the date of procedure patient's left lower extremity was marked in the preoperative area. The patient was then taken back to the operating room where the patient was placed on the table in the supine position. All bony prominences were identified a well-padded. Anesthesia assumed control of the C-spine and airway and remained controlled throughout the remainder of the procedure. A tourniquet was placed on the left upper thigh and the leg was prepped in a sterile fashion. The surgeon then scrubbed at this time .Upon reentering the room left lower extremity was draped in a standard orthopedic fashion. A timeout was then called and everyone agreed upon the side, the site, the procedure to be performed, patient's identity and antibiotics given. Esmarch bandage was used to exsanguinate the extremity and the tourniquet was placed up to 250 mmHg with the knee in flexion. A midline skin incision was made and sharp dissection was taken down through skin subcutaneous tissue and fat. The standard medial parapatellar incision was made and the patella was subluxed laterally. An Appropriate deep MCL release was done and the fat pad was resected. Our attention was then directed to the patella. The patella was everted and a flat resection was made. The knee was then flexed up in 2 femoral pins were placed inside the incision and 2 tibial pins were placed outside the incision in the medial tibia bicortically. Once this was completed the 2 checkpoints in the femur and tibia were placed. Knee was then flexed up and the bony landmarks were registered. Once this was completed knee was taken through range of motion and manually stressed allowing us to a plan for an appropriate tibial cut. The robotic arm was brought into the field sterilely and checkpoint and saw were registered. Based on the patient's deformity the tibial cut was made in 2 degrees of varus. At this time the tensioner was then placed in the joint and ligament tension was checked at 90 degrees and full extension. Based on the patient's ligamentous tension appropriate adjustments were made to the operative plan and ligament releases were done. Once we were happy with our operative plan with balanced flexion and extension gaps our attention was directed to the femur. The robot was brought into the field sterilely and registered. Posterior condylar cuts, anterior chamfer cuts and anterior cuts were appropriately made for a size 4 femur. When these were completed the saws were switched out in the distal femoral and posterior chamfer cuts were made. Protecting the soft tissue throughout this time. A size 3 tibial base plate was selected. the knee was flexed to 90 degrees and the soft tissues and posterior osteophytes were removed from the joint. 40 cc of the periarticular injection was injected into the posterior medial corner of the joint. The appropriate trials were then placed on the femur and tibia. A trial polyethylene was trialed to ensure proper balancing and stability of the knee. The appropriate tibial internal rotation was then marked with a bovie. Our attention was then directed to the patella. The lug holes were drilled and the patella trial was placed. Patellar tracking was checked and deemed appropriate. Once we were happy lug holes were drilled for the femur and trial components were removed. the tibia was subluxed and pinned into place and the keel was pu nched and drilled appropriately. Final components were verified and opened, and cement was mixed in a vacuum. N-Sided Simplex cement was used. The wound was copiously irrigated with normal saline. When the cement was ready the components were impacted into place starting with the tibia, femur and finally cementing the patella. The trial poly component was placed and the knee was placed in full extension. All excess cement was removed in the process. Once the cement had cured the tracking, alignment and balance were verified and a size [] polyethylene component was placed. Once the final components were placed a 3-minute dilute Betadine lavage was performed followed by an Irrisept lavage was performed and the wound was copiously irrigated with normal saline solution and the periarticular injection was given. The wound was closed in a layer goodwin fashion using #1 vicryl interrupted sutures for the arthrotomy, 2-0 interrupted Vicryl suture for the subcuticular layer and marcin for final skin closure. A sterile compressive dressing was then placed. The patient was then awakened from anesthesia, transferred to the [facility] and transferred to the PACU for recovery. Post op plan DVT ppx: ASA 81mg BID, thigh high compression stockings Follow up: in office in 2 weeks for wound check PT: to start POD #0 at hospital, outpatient PT should be arranged. My physician senior care assistant was a vital part of this case. He was important in appropriate retraction during the case, and protection of soft tissues during bony cuts. His intimate knowledge of the case and my steps aided in safe and ex pedient completion of the procedure as well as appropriate position of the leg during the case. He was also vital in assisting with closure under my direct supervision. Due to the complexity of this case robotic arm was used to assist in the surgery to improve accuracy and clinical outcomes. Complications No intraoperative complications Admit VTE Documentation VTE Present on Admission: No VTE Mechan Device Prophylaxis: SCD's and Thigh High RAMON Hose VTE Pharm Prophylaxis ordered?: Yes
[2022-02-23 07:11] LABS: Bedside Glucose 113 mg/dL (74-106)
[2022-02-23] MEDS: Cefazolin 2 GM in 0.9% Normal Saline 100 ML IV (07:23)
[2022-02-23] MEDS: TXA 1000mg in NS100 100ml (IVPB at Incision) 660 MG IV (07:31)
[2022-02-23] MEDS: dexAMETHasone 10 MG/ML Vial IV (07:31)
[2022-02-23] MEDS: TXA 1000mg in NS100 100ml (IVPB at Closure) 660 MG IV (08:13)
--- NOTE | 2022-02-23 09:25 | RAD_ITS ---
INDICATION: post op -- AP and Lateral xray of operative knee in PACU EXAMINATION/TECHNIQUE: X-RAY - LEFT XR Knee 1 or 2 Views 2 VIEWS COMPARISON: Left knee CT from 02/10/2022. FINDINGS: Status post left knee total arthroplasty. Appropriate positioning and intact appearance of the surgical hardware. No acute fracture or subluxation. Surgical clips overlying the anterior soft tissues. Expected postoperative soft tissue swelling, subcutaneous emphysema, and pneumarthrosis. RAD/Knee 1 or 2 Views IMPRESSION: Status post left knee total arthroplasty with expected postoperative changes. Electronically Signed: Yonas Ramirez, at 9:54 EDT ,
[2022-02-23] MEDS: Lactated Ringers 1,000 ML 125 ML IV (09:33)
--- NOTE | 2022-02-23 11:43 | PCM.PN.HOSP ---
Subjective Subjective Patient seen And examined. Patient lying in bed no distress noted. Patient denies pain currently at this time. Objective Data Objective Data Vital Signs: Vital Signs Temp Pulse Resp BP Pulse Ox 97.4 F L 61 16 131/76 H 100 02/23/22 11:11 02/23/22 11:11 02/23/22 11:11 02/23/22 11:11 02/23/22 11:11 Oxygen Flow Rate (L/min) 4 Oxygen Delivery Method Nasal Cannula Weight: 121 lb 4.068 oz Body Mass Index (BMI) 23.6 Intake & Output: Intake and Output for Last 24 Hours 02/21/22 02/22/22 02/23/22 23:59 23:59 23:59 Intake Total 2434 / 2434 Balance 2434 / 2434 Lab / Micro Data Result Diagrams: 02/10/22 07:59 02/10/22 07:59 Labs: Laboratory Results - last 24 hr 02/23/22 06:11: POC Glucose 113 H Micro: Microbiology 02/10/22 07:59 Swab (Method) Nasal Screen MRSA/MSSA - Final Radiography Diagnostic Testing: Radiology Impression Knee X-Ray 02/23/22 09:25 IMPRESSION: Status post left knee total arthroplasty with expected postoperative changes. Electronically Signed: Yonas Ramirez, at 9:54 EDT , Physical Exam Const alert, oriented x3 and no apparent distress HEENT head/scalp atraumatic and moist oral mucous membranes Eyes conjunctivae normal and no scleral icterus Neck supple General: trachea midline Resp normal respiratory effort, normal air movement and clear to auscultation bilaterally Effort and Inspection: able to speak in complete sentences and symmetric chest movement Cardio regular rate, regular rhythm, S1 normal heart sound and S2 normal heart sound GI normal to inspection, nondistended, normoactive bowel sounds, soft to palpation and non-tender Extremity normal to inspection Extremity Narrative: Surgical dressing dry and intact to left knee, limited range of motion postop. Skin Skin Narrative: Surgical dressing dry and intact to left knee, surgical incision not visualized at this time. Neuro oriented x3, moves all extremities and no focal motor deficits Psych affect normal Assessment & Plan Assessment/Plan (1) HLD (hyperlipidemia): (2) Essential (primary) hypertension: PLAN: Plan 1. Hypertension with history of stroke -Continue amlodipine and aspirin -Patient had a stroke in June 2021 and was treated at [facility] secondary to heavy calcification of the right ICA. -Patient's reports that patient had a device implanted in her chest that monitors her while she sleeps -Vital signs per protocol 2. Osteoporosis -patient on every 2 week Prolia injections -Continue vitamin D 3. Osteoarthritis -Continue etodolac and naproxen 4. Left knee replacement -Pain management per orthopedics -PT and OT to eval and treat DVT prophylaxis-SCDs This patient was seen by ALLISON Wellington under the supervision of Dr. Justice 14 minutes spent in clinical coordination of patient's plan of care.
[2022-02-23] MEDS: Multivitamins,Therapeutic Tablet 1 TABLET PO (12:35)
[2022-02-23] MEDS: Famotidine 20 MG Tablet PO (12:35)
[2022-02-23] MEDS: Ensure Surgery 237 ML LIQUID PO ×2 (12:35→16:37)
[2022-02-23] MEDS: Cholecalciferol (VIT D3) 25 MCG TABLET (1,000 UNITS) PO (12:36)
[2022-02-23] MEDS: amLODIPine 5 MG Tablet PO (14:22)
[2022-02-23] MEDS: Cefazolin 1 GM/50 ML BAG IV ×2 (15:13→22:30)
[2022-02-23] MEDS: Aspirin 81 MG TAB.CHEW PO (16:37)
[2022-02-23] MEDS: Ketorolac 15 MG/ML Vial IV (19:49)
[2022-02-23] MEDS: Senna/Docusate Sodium 1 Tablet 2 TABLET PO (22:24)
[2022-02-23] MEDS: 0.9% Saline Lock 10 ML Syringe IV (22:38)
[2022-02-24 00:42] VITALS: PULSE 66; O2SAT 96
[2022-02-24 03:41] VITALS: BP 147/88; PULSE 71; RESP 18; TEMP 36.4; O2SAT 97
[2022-02-24] MEDS: 0.9% Saline Lock 10 ML Syringe IV (03:52)
[2022-02-24 04:12] LABS: Hematocrit 34.6 % (37-47); Hemoglobin 11.4 g/dL (12.0-15.0); Mean Corp Hgb Conc 32.9 g/dL (32-36); Mean Corpuscular Hgb 28.6 pg (27.0-32.0); Mean Corpuscular Volume 86.9 fL (81-99); Mean Platelet Vol. 9.8 fl (6.2-12.0); Platelet Count 282 K/mm3 (150-450); RBC Distribution Width CV 12.9 % (11.6-14.6); RBC Distribution Width SD 40.8 fl (35.1-43.9); Red Blood Count 3.98 M/mm3 (4.2-5.4); White Blood Count 12.4 K/mm3 (4.4-11.0)
[2022-02-24 04:35] LABS: Anion Gap 5 (5-15); BUN 19 mg/dL (7-18); BUN/Creat Ratio 30.6 RATIO (10-20); Calcium,Total 8.2 mg/dL (8.5-10.1); Chloride 108 mmol/L (98-107); Creatinine, Serum 0.62 mg/dL (0.55-1.02); EST Glomerular Filtration Rate 98 mL/min (>60); Est Glom Filt Rate - Afr Amer 119 mL/min (>60); Estimated Creatinine Clearance 31.69 ml/min; Glucose 98 mg/dL (74-106); Potassium 4.2 mmol/L (3.5-5.1); Sodium Level 140 mmol/L (136-145)
[2022-02-24] MEDS: Acetaminophen 500 MG Tablet 1000 MG PO (05:39)
[2022-02-24] MEDS: Aspirin 81 MG TAB.CHEW PO (07:40)
[2022-02-24] MEDS: Senna/Docusate Sodium 1 Tablet 2 TABLET PO (07:40)
[2022-02-24] MEDS: Famotidine 20 MG Tablet PO (07:40)
[2022-02-24] MEDS: Multivitamins,Therapeutic Tablet 1 TABLET PO (07:40)
[2022-02-24] MEDS: Cholecalciferol (VIT D3) 25 MCG TABLET (1,000 UNITS) PO (07:40)
[2022-02-24] MEDS: Ensure Surgery 237 ML LIQUID PO (07:42)
[2022-02-24 08:05] VITALS: BP 128/77; PULSE 80; RESP 16; TEMP 36.4; O2SAT 95
--- NOTE | 2022-02-24 09:31 | PCM.PN.ORT ---
Subjective Subjective The patient was sitting in bedside chair upon examination. Patient denies any chest pain, shortness of breath, dizziness, lightheadedness, nausea or vomiting, or calf pain. Pain is controlled on medications. No adverse overnight events. Patient overall is doing very well this morning. She states she is ready to be discharged home. She states the pain is been very well controlled. She did receive a block. We discussed effects of the block and possibility of this wearing off over the next several hours. She has yet to work with physical therapy this morning. Objective Data Objective Data Vital Signs: Vital Signs Temp Pulse Resp BP Pulse Ox 97.6 F L 80 16 128/77 H 95 02/24/22 08:05 02/24/22 08:05 02/24/22 08:05 02/24/22 08:05 02/24/22 08:05 Oxygen Flow Rate (L/min) 2 Oxygen Delivery Method Room Air Weight: 55 kg Body Mass Index (BMI) 23.6 Intake & Output: Intake and Output for Last 24 Hours 02/22/22 02/23/22 02/24/22 23:59 23:59 23:59 Intake Total 4084.00 / 4084.00 Output Total 1050 / 1500 750 / 750 Balance 3034.00 / 2584.00 -750 / -750 Lab / Micro Data Result Diagrams: 02/24/22 03:49 02/24/22 03:49 Labs: Laboratory Results - last 24 hr 02/24/22 03:49: WBC 12.4 H, RBC 3.98 L, Hgb 11.4 L, Hct 34.6 L, MCV 86.9, MCH 28.6, MCHC 32.9, RDW Std Deviation 40.8, RDW Coeff of Gurvinder 12.9, Plt Count 282, MPV 9.8 02/24/22 03:49: Sodium 140, Potassium 4.2, Chloride 108 H, Carbon Dioxide 27.0, Anion Gap 5, BUN 19 H, Creatinine 0.62, Estim Creat Clear Calc 31.69, Est GFR (MDRD) Af Amer 119, Est GFR (MDRD) Non-Af 98, BUN/Creatinine Ratio 30.6 H, Glucose 98, Calcium 8.2 L Micro: Microbiology 02/10/22 07:59 Swab (Method) Nasal Screen MRSA/MSSA - Final Radiography Diagnostic Testing: Radiology Impression Knee X-Ray 02/23/22 09:25 IMPRESSION: Status post left knee total arthroplasty with expected postoperative changes. Electronically Signed: Yonas Ramirez, at 9:54 EDT , Physical Exam Narrative Vital signs stable and afebrile. SCDs and RAMON hose are in place bilaterally Patient is able to plantarflex and dorsiflex actively. Sensation is intact to light touch to saphenous, sural, superficial and deep peroneal, and tibial distribution. Proximal pin site dressing clean dry and intact. There is quarter size drainage over the middle one third of the main Mepilex dressing. Remaining dressing clean dry and intact. There is mild to moderate saturation of the distal pin site dressing Negative Homans bilaterally, negative signs and symptoms of DVT. Const alert, oriented x3 and no apparent distress Assessment & Plan Assessment/Plan (1) Status post total left knee replacement: PLAN: Plan 1. S/P left total knee arthroplasty POD #1 2. Continue Pain Medications: Tylenol and oxycodone. Patient has been taking etodolac for years prescribed by her primary care physician. Patient did have a stroke June 2021. I did discuss with the patient potential side effects from nonsteroidal anti-inflammatories including elevated blood pressure, heart attack/stroke, long-term use with effect on the kidneys. I had a discussion with the patient with regards to continue treatment and she needs to discuss this with her primary care physician who has been prescribing this due to her past history of stroke. She did voice understanding agreement. 3. DVT Prophylaxis: Take 81 mg aspirin twice daily for 4 weeks postoperatively for DVT prophylaxis. Patient denies any history of pulmonary embolism or DVTs in the past. 4. PT/OT: Weightbearing as tolerated with walker 5. H & H: 11.4/34.6, asymptomatic. Postoperative anemia secondary to acute blood loss from surgery without any intra operative complications. 6. Reactive leukocytosis: Currently 12.4, afebrile. Patient did receive Decadron intraoperatively 7. Encouraged Incentive Spirometry 8. Continue postoperative medical treatment per medicine 9. Disposition: Plan will be for probable discharge home today as long as patient tolerates therapy, pain is well controlled, and cleared by medicine. Patient would like her prescriptions E scribed to [facility]. She will follow-up per postop instructions. She does have outpatient physical therapy established. She will contact her office upon discharge with any concerns or questions. I have reviewed the [place] Automated Rx Reporting System (OARRS) report for this patient for refill pattern and other prescriber involvement as part of the appropriate surveillance for the provision of acute and chronic controlled medications. The report was requested and reviewed on the date of this entry and was considered in the prescribing process. This dictation was created using voice recognition software. Phonetic and/or grammatical errors may exist.
--- NOTE | 2022-02-24 09:36 | DCINST_ITS ---
Discharge Instructions Diet Discharge Diet: No restrictions Activity Discharge Activity: May Not Drive (Until you can walk 100 feet without the use of cane or walker and stopping narcotics) May shower in (days): 1 (Please turn dressing away from water. Okay to get wet as long as dressing is intact to skin.) Ice area for (Minutes): 20 (Every 1-2 hours while awake[address] Please place barrier between the skin and ice pack.) Weight Bearing Status: Weight bearing as tolerated (With walker) Keep extremity elevated above heart level: Operative Extremity Dressing / Incision Call your doctor if your incision/area has: Continuous Slow Oozing, Sudden Increased Bleeding, Increased Pain/ Swelling, Increased Redness and Foul Smelling Discharge Call your doctor if you observe: Fever of 101 or Higher, Coldness, Increased Pain, Numbness or Tingling, Change in Color, Shortness of breath, Chest pain, Calf discomfort and Uncontrolled pain Remove Dressing in: 4 days Additional Dressing/Incision Instructions:: Follow [facility] Post-op Instructions. Once postoperative dressing has been removed only use gentle soap and water over the incision. Do not use any ointments, Neosporin, salves, alcohol pads over the incision for 6 weeks postoperatively. Do not submerge underwater for 6 weeks postoperatively. Continue with RAMON hose/elastic stockings for 2 weeks postoperatively. May remove at nighttime but needs to be placed back on the leg during the day. Do NOT use alcohol with narcotic pain medication. Do NOT make important decisions while taking narcotic medication. If you have problems with taking your medication (rash, itching, nausea, etc.) call the office at once. You will need to discuss continued treatment with regards to your etodolac with your primary care physician due to past history of stroke. Follow Up Care Test Results: Test results from this visit will be discussed in further detail at your follow- up appointment, if applicable. Discharge Plan Admission Admit Date/Time: 02/23/22 06:54 Attending Provider: Jarrett Dixon Primary Care Provider: Arturo Marrero Consulting Providers: Sebastián Justice Discharge Orders/Prescriptions Prescriptions: New acetaminophen 500 mg Tablet 1,000 mg PO Q8 Qty: 100 0RF Rx Instructions: Do not take more than 3000 mg Tylenol in a 24-hour period. famotidine 20 mg Tablet 20 mg PO DAILY 30 Days Qty: 30 0RF aspirin 81 mg Tablet,Chewable 81 mg PO BIDCM 30 Days Qty: 60 0RF Rx Instructions: Take 81 mg aspirin twice daily for 4 weeks postoperatively for DVT prophylaxis oxycodone 5 mg Tablet 5 - 10 mg PO Q4H PRN PRN (Reason: Pain Score 4-10) 5 Days Qty: 60 0RF sennosides-docusate sodium [Stool Softener-Stimulant Laxat] 8.6-50 mg Tablet 2 tab PO BID Qty: 20 0RF Rx Instructions: Take until first bowel movement, then as needed Continued multivitamin [Daily Multi-Vitamin] tablet 1 tab PO DAILY amlodipine 5 mg tablet 5 mg PO QODAY cholecalciferol (vitamin D3) [Vitamin D3] 25 mcg (1,000 unit) Capsule 25 mcg PO DAILY naproxen sodium 220 mg Capsule 220 mg PO Q12H PRN (Reason: Pain) Repatha SureClick 140 mg/mL pen injector 140 mg subcut Q2W Qty: 2 11RF Held etodolac 400 mg tablet 400 mg PO QODAY Hold Instructions: Resume on 03/03/22. Discuss with primary care physician for continued use of this medication due to history of stroke Discontinued aspirin 81 mg Capsule 81 mg PO DAILY Referrals / Follow Up: Physical,Therapy [Other] - 02/25/22 9:00 am (with [facility]) Arturo Marrero MD [Primary Care Provider] - Connor Isaac PA-C [PHYSICIAN MACHINE CEMENTER AND FOLDER] - 03/11/22 9:30 am Disposition Disposition (needs filled in before D/C Order can be placed): Home, Self Care
--- NOTE | 2022-02-24 10:10 | CASEMGMT ---
CHASITY ORELLANA Face to Face with patient for initial transition planning/care coordination assessment. RN CM introduced self and role at [facility]. Patient sitting in chair, alert and oriented, at bedside. Patient willing to participate in assessment and is able to answer all questions appropriately. Care providers, pharmacy, and demographics verified. Patient wishes to discharge home and is setup with [facility] for outpatient therapy. Patient states she has no further needs or concerns at this time. CM to follow for discharge planning needs that may arise. PCP: Arturo Marrero Specialists: cj Dixon Pharmacy: [facility] Insurance: [employer] [facility] Prescription Benefit: yes Living Will/HPOA: yes, Tab Brennan LNOK: , daughter Living Arrangements: Patient lives with in a single story home with 6-7 steps to enter the home. Patient states she was independent at home prior to surgery Transportation: DME/HHC: Patient states she has walker and cane at home. Patient has had [facility] HHC in the past. Patient is setup with [facility] for outpatient therapy starting tomorrow. Disposition Plan: Patient to discharge home with outpatient therapy, family support, and follow-up plans in place. Miriam DAVIES, RN, CM
--- NOTE | 2022-02-24 10:18 | CASEMGMT ---
CHASITY ORELLANA in to complete KOEHLER form with patient. CHASITY ORELLANA explained KOEHLER form to patient, patient voiced understanding. Patient signed KOEHLER form and filed in chart. Patient provided with copy of signed KOEHLER. Patient had no further questions or concerns at this time.
== END 2022-02-24 13:15 | disposition home or self-care (01) ==
LOC: SDC 08:45 → MS3 08:45
PROVIDERS: Anesthesiology; Admitting Provider Specialist; PCP Family Medicine; Referring Provider Specialist; Visit Provider Specialist
PROC: 0SRD0JZ Replacement of Left Knee Joint with Synthetic Substitute, Open Approach (ICD-10-PCS; CPT 27447; principal; 2022-02-23 07:00)
DX: M17.12 Unilateral primary osteoarthritis, left knee (principal); I10 Essential (primary) hypertension; E78.5 Hyperlipidemia, unspecified; Z79.82 Long term (current) use of aspirin; Z79.899 Other long term (current) drug therapy; K21.9 Gastro-esophageal reflux disease without esophagitis; G47.33 Obstructive sleep apnea (adult) (pediatric); M25.50 Pain in unspecified joint; Z86.73 Personal history of transient ischemic attack (TIA), and cerebral infarction without residual deficits
CPT/HCPCS: 27447; S2900; 01402; 64447; 36415; 71046; 73560; 80048; 82040; 82962; 83036; 83735; 85025; 85027; 87081; 88305; 88311; 93005; 96361; 96365; 96366; 96375; 97110; 97116; 97162; 97166; 97530; 97535; 99218; 99251; C1776; J7120; A4216; G0378; G0463; J2405

== ENCOUNTER → 2022-09-15 | Outpatient (CLI) | payer MEDICARE, SELFPAY | END | disposition home or self-care (01) | LOC: LABSPEC 15:15 | PROVIDERS: PCP Family Medicine; Referring Provider Family Medicine; Visit Provider Family Medicine | DX: R35.0 Frequency of micturition (principal) | CPT/HCPCS: 87077; 87086; 87088; 87186 ==

== ENCOUNTER → 2022-12-14 | Outpatient (CLI) | payer MEDICARE, SELFPAY ==
[2022-12-14 10:17] LABS: AST(SGOT) 24 U/L (15-37); Alanine Aminotransfer ALT/SGPT 25 U/L (13-56); Albumin, Serum 3.8 g/dL (3.2-5.0); Alkaline Phosphatase 61 U/L (45-117); Bilirubin, Direct 0.12 mg/dL (0.00-0.30); Cholesterol 169 mg/dL (200); High Density Lipoprotein 68 mg/dL; Protein, Total 6.8 g/dL (6.4-8.2); Triglycerides 112 mg/dL; Very Low Density Lipoprotein 22 mg/dL (5-40)
== END | disposition home or self-care (01) ==
LOC: LAB 08:28
PROVIDERS: PCP Family Medicine; Referring Provider Internal Medicine Cardiovascular Disease; Visit Provider Internal Medicine Cardiovascular Disease
DX: E78.00 Pure hypercholesterolemia, unspecified (principal)
CPT/HCPCS: 36415; 80061; 80076

== ENCOUNTER → 2023-04-26 | Outpatient (CLI) | payer MEDICARE, SELFPAY ==
--- NOTE | 2023-04-26 08:54 | BI_ITS ---
MAMMOGRAPHY - BILATERAL SCREENING REASON FOR EXAM: Female, 83 years old. Routine annual screening examination. PERTINENT HISTORY: Multiple daughters with breast cancer. TECHNIQUE: Digital bilateral breast sandra (3D mammographic acquisition) in the CC and MLO projections. 2-D mediolateral oblique (MLO) and craniocaudad (CC) views of both breasts were obtained. CAD: Full Field Digital Mammography with Computer Added Detection was performed. COMPARISON: Screening mammogram from 01/08/2021, 09/02/2008. FINDINGS: Breast Composition: The breasts are heterogeneously dense, which may obscure small masses. There are no suspicious masses or suspicious calcifications. Stable bilateral benign-appearing breast calcifications. No other significant abnormalities are identified. There has been no significant change since the prior study. BI/SCRN MAMM (CAD)W/SANDRA BILAT IMPRESSION: Stable bilateral screening mammogram. Yearly follow-up mammogram recommended. (A) ASSESSMENT CATEGORY: BIRADS Category 2: Benign. A letter regarding these results will be sent to the patient by the facility within 30 days. Approximately 10% of breast cancers are not detected by mammography. A normal mammogram should not delay biopsy of a clinically suspicious abnormality. Electronically Signed: Yonas Ramirez DO at 12:24 EDT ,
--- NOTE | 2023-04-26 08:57 | BD_ITS ---
STUDY: DUAL ENERGY X-RAY ABSORPTIOMETRY / DXA REASON FOR EXAM: Female, 83 years old. M810 TECHNIQUE: Bone Mineral Density (BMD) measurements of lumbar spine and bilateral hips were obtained. COMPARISON: Comparison is made with prior study dated April 06, 2021. FINDINGS: Lumbar Spine (L1-L4): g/cm2 (0.991) / T-score (0.1) / Z-score (2.7) Findings are suggestive of normal bone density with a low fracture risk. Left Femur Total: g/cm2 (0.801) / T-score (-1.2) / Z-score (1.0) Left Femoral Neck: g/cm2 (0.698) / T-score (-1.4) / Z-score (1.0) Right Femur Total: g/cm2 (0.784) / T-score (-1.3) / Z-score (0.9) Right Femoral Neck: g/cm2 (0.656) / T-score (-1.7) / Z-score (0.7) The T-Scores on the most recent prior examination were: Lumbar Spine (L1-L4): There has been improvement of bone density since the previous examination. Left Femur Total: which represents an improvement of 3.8%. Right Femur Total: which represents an improvement of 6%. BD/Dexa Bone Density Study IMPRESSION: The patient is considered osteopenic as outlined below according to World Pern[employer] Organization (WHO) criteria with a moderate fracture risk. There has been improvement of bone density since the previous examination. Reference Information: The T-score is the number of standard deviations above or below the standard which is normal for young adults at their peak bone mineral density. The World Health Organization (WHO) interprets the T-scores as follows: Above -1 Normal bone density Between -1 and -2.5 Osteopenia Equal to / or below -2.5 Osteoporosis As a practical clinical guideline, osteopenia may be graded as follows: Mild -1 through -1.5 Moderate -1.6 through -2.0 Severe -2.1 through -2.4 The Z-score is the number of standard deviations above or below age-matched controls. A Z-score of less than -1.5 would be considered abnormal. References: 1. NIH Osteoporosis and Related Bone Diseases www osteo.org 2. International Society for Clinical Densitometry www iscd.org 3. National Osteoporosis Foundation www nof.org Electronically Signed: Chito Zuleta MD at 14:33 EDT ,
== END | disposition home or self-care (01) ==
PROVIDERS: PCP Family Medicine; Referring Provider Family Medicine; Visit Provider Family Medicine
DX: M81.0 Age-related osteoporosis without current pathological fracture (principal); Z79.83 Long term (current) use of bisphosphonates; Z12.31 Encounter for screening mammogram for malignant neoplasm of breast; Z80.3 Family history of malignant neoplasm of breast
CPT/HCPCS: 77063; 77067; 77080

== ENCOUNTER → 2023-06-14 | Outpatient (CLI) | payer MEDICARE, SELFPAY ==
--- NOTE | 2023-06-14 07:37 | MRI_ITS ---
INDICATION: STENOSIS EXAMINATION: MRI - MR Spine Lumbar WO/W Contrast TECHNIQUE: Multiplanar and multisequence MR images of the lumbar spine. IV Contrast Dosage and Agent: None. COMPARISON: February 09, 2015. FINDINGS: VERTEBRAE: There is metal artifact posteriorly at L4-5 consistent with interval pedicle screw fusion. There is a new grade 2 retrolisthesis of L2 on L3. CORD: Normal position and signal intensity of the conus medullaris. L1/L2: Moderate disc desiccation, mild disc bulging, mild bilateral facet arthropathy, mild bilateral neural foraminal encroachment. L2/L3: Loss of disc space height, severe disc desiccation, moderate pseudobulge, moderate bilateral facet arthropathy and ligamentous hypertrophy, mild central stenosis, severe left and moderately severe right-sided neural foraminal encroachment. L3/L4: Moderate disc desiccation and loss of disc space height, moderate disc bulging, moderate bilateral facet arthropathy, moderate central stenosis, severe bilateral neural foraminal encroachment. L4/L5: Moderate disc desiccation, mild disc bulging, interval bilateral laminectomy, moderate bilateral facet arthropathy, mild bilateral neural foraminal encroachment. L5/S1: Mild disc desiccation, moderate bilateral facet arthropathy, moderate bilateral neural foraminal encroachment. Facet arthropathy and neural foraminal encroachment at this level are progressive. SOFT TISSUES: Unremarkable. No evidence of significant abnormal contrast enhancement. MRI/Spine Lumbar W/WO Contrast IMPRESSION: Interval bilateral pedicle screw fusion and laminectomy L4-5 with mild disc bulging. 2. Retrolisthesis L2 on L3 with moderate pseudobulge. L1-2 mild disc bulging. Multilevel degenerative disc disease, central stenosis, facet arthropathy and neural foraminal encroachment as above. Electronically Signed: Glen Samuel MD at 10:44 EDT ,
== END | disposition home or self-care (01) ==
PROVIDERS: PCP Family Medicine
DX: M48.061 Spinal stenosis, lumbar region without neurogenic claudication (principal)
CPT/HCPCS: 72158; A9575

== ENCOUNTER → 2023-08-11 | Outpatient (CLI) | payer MEDICARE, SELFPAY ==
[2023-08-11 08:39] LABS: AST(SGOT) 27 U/L (15-37); Alanine Aminotransfer ALT/SGPT 22 U/L (13-56); Alkaline Phosphatase 64 U/L (45-117); Bilirubin, Direct 0.08 mg/dL (0.00-0.30); Cholesterol 168 mg/dL (200); Globulin 3.1 g/dL (2.2-4.2); High Density Lipoprotein 73 mg/dL; Protein, Total 7.1 g/dL (6.4-8.2); Triglycerides 128 mg/dL; Very Low Density Lipoprotein 26 mg/dL (5-40)
== END | disposition home or self-care (01) ==
LOC: LAB 06:48
PROVIDERS: PCP Family Medicine; Referring Provider Physician Assistant Medical; Visit Provider Physician Assistant Medical
DX: E78.5 Hyperlipidemia, unspecified (principal); I35.0 Nonrheumatic aortic (valve) stenosis; I10 Essential (primary) hypertension
CPT/HCPCS: 36415; 80061; 80076

== ENCOUNTER → 2023-08-22 | Outpatient (CLI) | payer MEDICARE, SELFPAY ==
--- NOTE | 2023-08-22 10:53 | ECHOD_ITS ---
Reason For Study: AORTIC STENOSIS Procedure This was a 2D Doppler, Color Flow transthoracic echocardiogram. Exam performed in department. Left Ventricle Normal LV size. Mild concentric left ventricular hypertrophy. Left ventricular systolic function is normal. The estimated ejection fraction is 65 %. Stage 1 diastolic dysfunction. No regional wall motion abnormalities noted. Right Ventricle Normal RV size. Normal systolic function. Atria Normal left atrium. Normal right atrium. Mitral Valve There is moderate mitral annular calcification. Tricuspid Valve Normal tricuspid valve. Mild (1+) tricuspid valve insufficiency. Pulmonary artery systolic pressure is 29 mmHg. Aortic Valve Trisinus/trileaflet aortic valve. Moderate focal aortic valve calcification. Peak aortic valve gradient 65 mmHg. Mean aortic valve gradient 41 mmHg. Mild (1+) aortic valve insufficiency. Pulmonic Valve Normal pulmonic valve. Great Vessels Normal aortic root. The pulmonary artery is normal size. Normal inferior vena cava. Pericardium/Pleural No pericardial effusion. MMode/2D Measurements & Calculations LVIDd: 3.6 cm IVSd: 1.3 cm LVOT diam: 2.0 cm LVIDs: 2.0 cm LVPWd: 1.2 cm LVOT area: 3.2 cm2 RVDd: 3.1 cm FS: 43.1 % Ao root diam: 3.1 cm LAV(MOD-bp): 27.2 ml LVAd ap4: 19.9 cm2 LAV(MOD-bp) Indexed: 17.5 ml/m2 LVLd ap4: 5.7 cm LAV(MOD-sp2): 27.3 ml EDV(MOD-sp4): 55.5 ml LAV(MOD-sp4): 26.0 ml EDV(sp4-el): 58.6 ml LVAs ap4: 10.1 cm2 LVLs ap4: 4.8 cm ESV(MOD-sp4): 18.3 ml ESV(sp4-el): 17.9 ml EF(MOD-sp4): 67.1 % EF(sp4-el): 69.4 % SV(MOD-sp4): 37.2 ml SV(sp4-el): 40.6 ml LA A4 area: 12.2 cm2 LA dimension(2D): 2.9 cm RA A4 area: 11.2 cm2 Time Measurements MV dec time: 0.26 sec Doppler Measurements & Calculations MV E max colton: 79.9 cm/sec Lat Peak E' Colton: 4.5 cm/sec Med Peak E' Colton: 3.9 cm/sec MV A max colton: 123.9 cm/sec E/E' lat: 17.7 E/E' med: 20.5 MV E/A: 0.64 Ao V2 max: 403.2 cm/sec AI max colton: 473.6 cm/sec LV V1 max: 105.3 cm/sec Ao max P.0 mmHg AI max P.7 mmHg LV V1 max P.4 mmHg Ao V2 mean: 306.0 cm/sec LV V1 mean P.5 mmHg Ao mean P.3 mmHg AI dec slope: 282.7 cm/sec2 LV V1 mean: 74.0 cm/sec Ao V2 VTI: 95.9 cm AI P1/2t: 490.8 msec LV V1 VTI: 22.3 cm AV (velocity ratio): 0.23 KAILA(I,D): 0.74 cm2 KAILA(V,D): 0.83 cm2 SV(LVOT): 70.8 ml PA V2 max: 76.2 cm/sec TR max colton: 249.5 cm/sec TR max P.9 mmHg ECHO/Echo Complete Interpretation Summary Normal LV size. Left ventricular systolic function is normal. The estimated ejection fraction is 65 %. Moderate focal aortic valve calcification. Mild concentric left ventricular hypertrophy. Stage 1 diastolic dysfunction. Mean aortic valve gradient 41 mmHg. Mild (1+) aortic valve insufficiency. Severe which is worse in comparison to the previous. Ordering Physician: Cadence Veronica/Rafiq Vitale Referring Physician: COCO EDMONDSON Performed By: Karly Sampson RDCS
== END | disposition home or self-care (01) ==
LOC: CVS 10:52
PROVIDERS: PCP Family Medicine; Referring Provider Physician Assistant Medical; Visit Provider Physician Assistant Medical
DX: I35.0 Nonrheumatic aortic (valve) stenosis (principal); E78.5 Hyperlipidemia, unspecified; I10 Essential (primary) hypertension
CPT/HCPCS: 93306

== ENCOUNTER 2023-11-02 06:59 | Day surgery (SDC) | payer MEDICARE, SELFPAY ==
--- NOTE | 2023-09-18 12:03 | PCM.HP.BLA ---
History and Physical Date of Admission: 09/22/23 Angelique Brennan is a pleasant 83-year-old lady established with us for concerns over a heart murmur.? She does have a history of hypertension.? She did have an echocardiogram in 2019 demonstrated an ejection fraction of 65% with no wall motion abnormalities noted and an aortic valve area of 1.3 cm? with a peak gradient of 42 mmHg and a mean gradient of 24 mmHg.? In 2016 she had a peak gradient of 23 mmHg and a mean gradient of 10 mmHg.? In June of 2021 she had a CVA. She was treated at [facility]. She has a ILR and does follow with [facility] for this. Repeat echocardiogram August 2023 showed an ejection unction of 65% and a mean aortic valve gradient of 41 mmHg. She does not have any chest pain. She does not have any worsening shortness of breath. She does not have any palpitations that she is aware of. She does not have any lightheadedness and or dizziness. She does not have any lower extremity edema. She does have back pain. Intake Vital Signs: See EMR Intake Visit Reasons: [facility] Physiological Chemist Required: No Is patient in pain?: No Allergies Antihistamines - Ethanolamine Allergy (Verified 08/08/23 10:58) NEEDS FOLLOW-UP ramipril [From Altace] Allergy (Verified 08/08/23 10:58) Angioedema atorvastatin [From Lipitor] Adverse Reaction (Verified 08/08/23 10:58) myalgia scefuroxime [From Ceftin] Adverse Reaction (Verified 08/08/23 10:58) GI Upset [place] And Derivatives Adverse Reaction (Verified 08/08/23 10:58) Other isosorbide Adverse Reaction (Verified 08/08/23 10:58) headache Ennuqbz-LFB-OoS Reductase Inhibitor [Wxnjfta-Nqi-Rjx Reductase Inhibitor] Adverse Reaction (Verified 08/08/23 10:58) myalgias Medications See EMR [facility] Medical History Alcohol use Allergic rhinitis Back pain Cardiology follow-up encounter Dietary restriction Difficulty swallowing Essential (primary) hypertension Gastric reflux GERD (gastroesophageal reflux disease) High cholesterol History of echocardiogram History of irregular heartbeat History of pain when walking History of stress test HLD (hyperlipidemia) Hypertension Kidney stones Kidney stones Lumbar radiculopathy Non-smoker Nonrheumatic aortic (valve) stenosis Obstructive sleep apnea Osteoarthritis Osteoporosis Polyarthralgia Post-menopausal Stenosis of right carotid artery Stroke/cerebrovascular accident Wears dentures Wears glasses Surgical History Esophageal dilatation History of appendectomy History of carpal tunnel surgery History of cholecystectomy History of lumbar surgery Hx of appendectomy Hx of hand surgery S/P cholecystectomy Status post colectomy Family History Father CVA (cerebral vascular accident)Mother CVA (cerebral vascular accident) Social History Smoking Status: Never smoker alcohol intake: current ROS Const Const: Negative for fatigue, weakness, fever(s) or headache(s) Eyes Eyes: Negative for blind spots, loss of peripheral vision or transient loss of vision ENT ENT: Negative for headache(s), dizziness, tinnitus, Nosebleed/epistaxis or balance problems Cardio Chest Pain: No Palpitations: No Edema: None Muscle aches with walking: None Resp Respiratory: Negative for SOB with activity, SOB at rest, SOB orthopnea\SOB lying down or Cough GI GI: Negative nausea, vomiting, heartburn or vomiting blood/hematemesis : Negative for hematuria Musc Musc: Negative for muscle aches/ myalgia, muscle weakness, joint pain or balance problems Neuro Neuro: Negative for dizziness, lightheadedness, near syncope, syncope, orthostatic symptoms, headache(s) or weakness Fred Hematologic/Lymphatic: Negative for easy bleeding Endo Endo: Negative for fatigue Cardiology Exam Const Appearance: cooperative, healthy appearing, comfortable, no acute distress and well developed Orientation: alert, awake and oriented x3 Head Head: normal to inspection Ears: hearing grossly normal bilaterally Nose: external nose normal Face and Sinus: face symmetric Mouth: oral mucosae normal, lip normal and moist mucous membranes Eyes General: appearance normal, both eyes and all related structures Eyelids: eyelids normal Conjunctivae: conjunctivae normal Pupils: PERRL EOM: EOM intact bilaterally Neck Neck: normal visual inspection and trachea midline; Negative no JVD Carotids: Negative bruit Chest Chest inspection: normal inspection of the chest Auscultation: Bilateral: Clear to Auscultation Cardio Palpation: normal PMI Rate: regular rate Rhythm: regular rhythm Heart sounds: S1 normal and S2 normal; Negative rub or gallop Murmur: Grade 3/6, mid systolic, LLSB and radiates to carotids GI GI: soft, no hepatosplenomegaly and bowel sounds present Neuro General: patient alert, patient awake, patient oriented x3 and CN's II-XI intact bilaterally Extremities Pulses: Normal: Right Posterior Tibial Pulse, Left Posterior Tibial Pulse, Right Radial Pulse and Left Radial Pulse Lower Extremity Edema: None: Bilateral Psych Psychological: normal affect Supplemental Info Supplemental Information Echocardiogram from 08/22/2023: Interpretation Summary Normal LV size. Left ventricular systolic function is normal. The estimated ejection fraction is 65 %. Moderate focal aortic valve calcification. Mild concentric left ventricular hypertrophy. Stage 1 diastolic dysfunction. Mean aortic valve gradient 41 mmHg. Mild (1+) aortic valve insufficiency. Severe which is worse in comparison to the previous. Echocardiogram 2019: The estimated ejection fraction is 65 %. Unable to assess diastolic dysfunction. Moderate diffuse aortic valve thickening. Moderate aortic stenosis. Assessment and Plan Assessment and Plan (1) Nonrheumatic aortic (valve) stenosis: Status: Chronic Plan: She had an echocardiogram on 08/22/2023 that showed ejection fraction of 65%, mild concentric LVH, and severe aortic valve stenosis with a mean aortic valve gradient 41 mmHg. She will proceed with heart catheterization to evaluate cardiac anatomy to assist with valve replacement workup. Depending on results, further recommendation will be made. (2) Essential (primary) hypertension: Status: Chronic Plan: Blood pressure is controlled. She will continue with her amlodipine. (3) HLD (hyperlipidemia): Status: Chronic Plan: With patient's recent CVA would like for her to continue with her Repatha. We will continue to follow monitoring lipids. Most recent lipid profile demonstrates LDL of 79 with total cholesterol
[2023-09-21 09:23] VITALS: BMI 25.4
--- NOTE | 2023-10-27 07:34 | PCM.HP.BLA ---
History and Physical Date of Admission: 11/02/23 Angelique Brennan is a pleasant 83-year-old lady established with us for concerns over a heart murmur. She does have a history of hypertension. She did have an echocardiogram in 2019 demonstrated an ejection fraction of 65% with no wall motion abnormalities noted and an aortic valve area of 1.3 cm? with a peak gradient of 42 mmHg and a mean gradient of 24 mmHg. In 2016 she had a peak gradient of 23 mmHg and a mean gradient of 10 mmHg. In June of 2021 she had a CVA. She was treated at [facility]. She has a ILR and does follow with [facility] for this. Repeat echocardiogram August 2023 showed an ejection unction of 65% and a mean aortic valve gradient of 41 mmHg. She does not have any chest pain. She does not have any worsening shortness of breath. She does not have any palpitations that she is aware of. She does not have any lightheadedness and or dizziness. She does not have any lower extremity edema. She does have back pain. [facility] Medical History Alcohol use Allergic rhinitis Back pain Cardiology follow-up encounter Dietary restriction Difficulty swallowing Essential (primary) hypertension Gastric reflux GERD (gastroesophageal reflux disease) High cholesterol History of echocardiogram History of irregular heartbeat History of pain when walking History of stress test HLD (hyperlipidemia) Hypertension Kidney stones Kidney stones Lumbar radiculopathy Non-smoker Nonrheumatic aortic (valve) stenosis Obstructive sleep apnea Osteoarthritis Osteoporosis Polyarthralgia Post-menopausal Stenosis of right carotid artery Stroke/cerebrovascular accident Wears dentures Wears glasses Surgical History Esophageal dilatation History of appendectomy History of carpal tunnel surgery History of cholecystectomy History of lumbar surgery Hx of appendectomy Hx of hand surgery S/P cholecystectomy Status post colectomy Family History Father CVA (cerebral vascular accident)Mother CVA (cerebral vascular accident) Social History Smoking Status: Never smoker alcohol intake: current ROS Const Const: Negative for fatigue, weakness, fever(s) or headache(s) Eyes Eyes: Negative for blind spots, loss of peripheral vision or transient loss of vision ENT ENT: Negative for headache(s), dizziness, tinnitus, Nosebleed/epistaxis or balance problems Cardio Chest Pain: No Palpitations: No Edema: None Muscle aches with walking: None Resp Respiratory: Negative for SOB with activity, SOB at rest, SOB orthopnea\SOB lying down or Cough GI GI: Negative nausea, vomiting, heartburn or vomiting blood/hematemesis : Negative for hematuria Musc Musc: Negative for muscle aches/ myalgia, muscle weakness, joint pain or balance problems Neuro Neuro: Negative for dizziness, lightheadedness, near syncope, syncope, orthostatic symptoms, headache(s) or weakness Fred Hematologic/Lymphatic: Negative for easy bleeding Endo Endo: Negative for fatigue Cardiology Exam Const Appearance: cooperative, healthy appearing, comfortable, no acute distress and well developed Orientation: alert, awake and oriented x3 Head Head: normal to inspection Ears: hearing grossly normal bilaterally Nose: external nose normal Face and Sinus: face symmetric Mouth: oral mucosae normal, lip normal and moist mucous membranes Eyes General: appearance normal, both eyes and all related structures Eyelids: eyelids normal Conjunctivae: conjunctivae normal Pupils: PERRL EOM: EOM intact bilaterally Neck Neck: normal visual inspection and trachea midline; Negative no JVD Carotids: Negative bruit Chest Chest inspection: normal inspection of the chest Auscultation: Bilateral: Clear to Auscultation Cardio Palpation: normal PMI Rate: regular rate Rhythm: regular rhythm Heart sounds: S1 normal and S2 normal; Negative rub or gallop Murmur: Grade 3/6, mid systolic, LLSB and radiates to carotids GI GI: soft, no hepatosplenomegaly and bowel sounds present Neuro General: patient alert, patient awake, patient oriented x3 and CN's II-XI intact bilaterally Extremities Pulses: Normal: Right Posterior Tibial Pulse, Left Posterior Tibial Pulse, Right Radial Pulse and Left Radial Pulse Lower Extremity Edema: None: Bilateral Psych Psychological: normal affect Supplemental Information Echocardiogram from 08/22/2023: Interpretation Summary Normal LV size. Left ventricular systolic function is normal. The estimated ejection fraction is 65 %. Moderate focal aortic valve calcification. Mild concentric left ventricular hypertrophy. Stage 1 diastolic dysfunction. Mean aortic valve gradient 41 mmHg. Mild (1+) aortic valve insufficiency. Severe which is worse in comparison to the previous. Echocardiogram 2020: The estimated ejection fraction is 65 %. Unable to assess diastolic dysfunction. Moderate diffuse aortic valve thickening. Moderate aortic stenosis. Assessment and Plan (1) Nonrheumatic aortic (valve) stenosis: (2) Essential (primary) hypertension: (3) HLD (hyperlipidemia): She had an echocardiogram on 08/22/2023 that showed ejection fraction of 65%, mild concentric LVH, and severe aortic valve stenosis with a mean aortic valve gradient 41 mmHg. She will proceed with heart catheterization to evaluate cardiac anatomy to assist with valve replacement workup. Depending on results, further recommendation will be made.
--- NOTE | 2023-10-27 13:30 | RAD_ITS ---
HISTORY: pre procedure. TECHNIQUE: XR Chest 2 Views. COMPARISON: 02/10/2022. FINDINGS: CARDIOMEDIASTINAL BORDERS: Cardiac silhouette within normal limits in size with monitoring device in the anterior chest wall. Mild calcification of the aortic knob. Stent in the right neck again seen. Mild-moderate hiatal hernia. LUNGS: Radiographically clear. PLEURA: No pleural effusion or pneumothorax seen. OSSEOUS STRUCTURES: Degenerative change and mild scoliosis with lumbar fixation hardware noted. RAD/Chest PA and Lateral IMPRESSION: No acute cardiopulmonary process identified. Hiatal hernia. Electronically Signed: Lauren Sandoval MD at 11:59 EST ,
[2023-10-27 13:41] LABS: Absolute Lymphocyte Count 1.23 X10^3/uL (0.83-4.51); Basophil# 0.06 X10^3/uL; Eosinophil# 0.16 X10^3/uL; Eosinophils% 2.6 % (0-5); Hematocrit 43.4 % (37-47); Hemoglobin 14.3 g/dL (12.0-15.0); Lymphocyte # 1.23 X10^3/ul (0.83-4.51); Lymphocyte % 19.8 % (19-41); Mean Corp Hgb Conc 32.9 g/dL (32-36); Mean Corpuscular Hgb 29.7 pg (27.0-32.0); Mean Platelet Vol. 10.1 fl (6.2-12.0); Monocyte# 0.71 X10^3/uL; Monocyte% 11.4 % (0-10); NRBC Flagged by Analyzer 0 % (0-5); Neutrophil # 4.03 X10^3/uL (2.7-7.7); Neutrophil % 64.7 % (47-70); Platelet Count 346 K/mm3 (150-450); RBC Distribution Width CV 12.7 % (11.6-14.6); RBC Distribution Width SD 41.1 fl (35.1-43.9); Red Blood Count 4.82 M/mm3 (4.2-5.4); White Blood Count 6.2 K/mm3 (4.4-11.0)
[2023-10-27 13:50] LABS: International Normalized Ratio 0.8; Partial Thromboplast Time 26.4 Seconds (24.1-36.2); Prothrombin Time (Protime)PT. 11.5 SECONDS (11.7-14.9)
[2023-10-27 14:05] LABS: Vitamin B12 1228 pg/mL (211-911)
[2023-10-27 14:40] LABS: ALB/GLOB Ratio 1.2 RATIO (0.9-2.4); AST(SGOT) 24 U/L (15-37); Alanine Aminotransfer ALT/SGPT 24 U/L (13-56); Alkaline Phosphatase 68 U/L (45-117); Anion Gap 3 (5-15); BUN 25 mg/dL (7-18); BUN/Creat Ratio 26.7 RATIO (10-20); Calcium,Total 9.3 mg/dL (8.5-10.1); Chloride 104 mmol/L (98-107); Creatinine, Serum 0.94 mg/dL (0.55-1.02); EST Glomerular Filtration Rate 61 mL/min (>60); Est Glom Filt Rate - Afr Amer 73 mL/min (>60); Estimated Creatinine Clearance 37.07 ml/min; Ferritin 23 ng/mL (8-252); Globulin 3.2 g/dL (2.2-4.2); Glucose 119 mg/dL (74-106); Potassium 4.2 mmol/L (3.5-5.1); Protein, Total 7.2 g/dL (6.4-8.2); Sodium Level 138 mmol/L (136-145)
--- OUTSIDE RECORDS SUMMARY | 2023-11-02 07:12 | XMS RPT_ITS | CCD ---
Author Name Unknown Address [address] [place] [address] Organization [facility] Care Team Providers Care Station Mechanic Name Role Phone Laisha RN, Zakia A Unavailable Unavailable Laisha RN, Zakia A Unavailable Unavailable Laisha RN, Zakia A Unavailable Unavailable Laisha RN, Zakia A Unavailable Unavailable Mo Marreroia Y Unavailable Martin Ding Unavailable Unavailable Laisha RN, Zakia A Unavailable Unavailable Mo Marreroia Y Unavailable Crystal Marrero Unavailable Martin Ding Unavailable Unavailable [place] LINE WELDER-BACK GRAY CLOTH WASHER, Brittaney M Unavailable Janes FRAGOSO, Coco A Primary Care Provider Cory FRAGOSO, Charlotte Unavailable Janes FRAGOSO, Coco A Primary Care Provider Cory FRAGOSO, Ronaldnan Unavailable Janes FRAGOSO, Coco A Primary Care Provider Cory FRAGOSO, Adnan Unavailable AUGOSTINI, YISEL S Referring Unavailable MARRERO, COCO A Primary Care Unavailable AUGOSTINI, YISEL S Referring Unavailable MARRERO, COCO A Primary Care Unavailable AUGOSTINI, YISEL S Referring Unavailable MARRERO, COCO A Primary Care Unavailable AUGOSTINI, YISEL S Referring Unavailable MARRERO, COCO A Primary Care Unavailable MARRERO, COCO A Primary Care Unavailable AUGOSTINI, YISEL S Referring Unavailable MARRERO, COCO A Primary Care Unavailable AUGOSTINI, YISEL S Referring Unavailable MARRERO, COCO A Primary Care Unavailable AUGOSTINI, YISEL S Referring Unavailable MARRERO, COCO A Primary Care Unavailable AUGOSTINI, YISEL S Referring Unavailable MARRERO, COCO A Primary Care Unavailable YISEL STEEN Referring Unavailable YISEL STEEN Referring Unavailable COCO MARRERO Primary Care Unavailable YISEL STEEN Referring Unavailable COCO MARRERO Primary Care Unavailable Allergies Allergy Classification Reported Allergen(s) Allergy Type Date of Onset Reaction(s) Facility (10 sources) atorvastatin drug allergy 7 myalgias [facility] Work Phone: (10 sources) cefuroxime drug allergy 7 Diarrhea and stomach cramps [facility] Work Phone: (10 sources) isosorbide dinitrate drug allergy 7 dizziness, headache [facility] Work Phone: (11 sources) ramipril drug allergy 3 angioedema [facility] Work Phone: (10 sources) simvastatin drug allergy 7 nausea [facility] Work Phone: (1 source) atorvastatin Drug Allergy 3 [facility] Work Phone: (1 source) Cefuroxime Drug Allergy 3 [facility] Work Phone: (1 source) Simvastatin Drug Allergy 3 [facility] Work Phone: Medications Current Medications Medication Drug Class(es) Dates Sig (Normalized) Sig (Original) aspirin 81 mg chewable tablet (20 sources) Platelet Aggregation Inhibitor, Nonsteroidal Anti-inflammatory Drug Start: 06-20-2021 aspirin 81 MG Chew Tab chewable tablet Chew 1 tablet daily. 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 Active Problems Problem Classification Problem Date Documented Da te Episodic/Chronic Acute cerebrovascular disease (20 sources) Cerebral infarction, unspecified; Translations: [Cerebral artery occlusion, unspecified with cerebral infarction] Onset: 06-09-2021 Chronic Disorders of lipid metabolism (10 sources) Hyperlipidemia; Translations: [Hyperlipidemia, unspecified] 04-13-2017 Chronic Essential hypertension (10 sources) Hypertensive disorder; Translations: [Essential (primary) hypertension] 04-13-2017 Chronic Occlusion or stenosis of precerebral arteries (10 sources) Carotid artery stenosis; Translations: [Occlusion and stenosis of bilateral carotid arteries] Onset: 04-13-2017 04-13-2017 Chronic Osteoarthritis (2 sources) Degenerative joint disease of hand; Translations: [Primary osteoarthritis, right hand] Onset: 11-17-2015 11-17-2015 Chronic Other nervous system disorders (1 source) Carpal tunnel syndrome; Translations: [Carpal tunnel syndrome, left upper limb] Onset: 11-17-2015 11-17-2015 Chronic Spondylosis; intervertebral disc disorders; other back problems (1 source) Degeneration of lumbar intervertebral disc; Translations: [Other intervertebral disc degeneration, lumbar region] Onset: 08-10-2017 08-10-2017 Chronic Past or Other Problems Problem Classification Problem Date Documented Date Episodic/Chronic Acute posthemorrhagic anemia (20 sources) Acute posthemorrhagic anemia; Translations: [Acute posthemorrhagic anemia] Onset: 06-09-2021 06-20-2021 Episodic Deficiency and other anemia (20 sources) Anemia; Translations: [Anemia, unspecified] Onset: 06-16-2021 06-20-2021 Episodic Fluid and electrolyte disorders (20 sources) Disorder of electrolytes; Translations: [Other disorders of electrolyte and fluid balance, not elsewhere classified] Onset: 06-10-2021 06-10-2021 Episodic Other connective tissue disease (1 source) Tenosynovitis; Translations: [Synovitis and tenosynovitis, unspecified] Onset: 11-17-2015 11-17-2015 Episodic Other connective tissue disease (20 sources) Neurological symptom; Translations: [Unspecified symptoms and signs involving the nervous system] Onset: 06-09-2021 06-09-2021 Episodic Residual codes; unclassified (1 source) History of operative procedure on lumbar spinal structure; Translations: [Arthrodesis status] Onset: 07-28-2015 07-28-2015 Episodic Spondylosis; intervertebral disc disorders; other back problems (1 source) Spinal stenosis of lumbar region; Translations: [Spinal stenosis, lumbar region without neurogenic claudication] Onset: 07-25-2019 07-25-2019 Episodic Unclassified (1 source) Problem Results Test Name Value Interpretation Reference Range Facil ity Vital Signs Date Time Vital Sign Value Performing Clinician Faci lity 12-23-2021 17:45-0400 Diastolic blood pressure 70 mm[Hg] Vikram House MD Work Phone: [facility] 12-23-2021 17:45-0400 Heart rate 91 /min Vikram House MD Work Phone: [facility] 12-23-2021 17:45-0400 Respiratory rate 22 /min Vikram House MD Work Phone: [facility] 12-23-2021 17:45-0400 SaO2% (BldA) [Mass fraction] 96 % Vikram House MD Work Phone: [facility] 12-23-2021 17:45-0400 Systolic blood pressure 134 mm[Hg] Vikram House MD Work Phone: [facility] 12-23-2021 14:29-0400 Body height 152.4 cm Vikram House MD Work Phone: [facility] 12-23-2021 14:29-0400 Body mass index (BMI) [Ratio] 23.05 kg/m2 Vikram House MD Work Phone: [facility] 12-23-2021 14:29-0400 Body temperature 98.2 [degF] Vikram House MD Work Phone: [facility] 12-23-2021 14:29-0400 Body weight 53.52 kg Vikram House MD Work Phone: [facility] 12-17-2021 12:52-0400 Body height 152.4 cm Glen Constable LINE WELDER-BACK GRAY CLOTH WASHER Work Phone: [facility] 12-17-2021 12:52-0400 Body mass index (BMI) [Ratio] 23.63 kg/m2 Glen Constable LINE WELDER-BACK GRAY CLOTH WASHER Work Phone: [facility] 12-17-2021 12:52-0400 Body temperature 98.01 [degF] Glen Constable LINE WELDER-BACK GRAY CLOTH WASHER Work Phone: [facility] 12-17-2021 12:52-0400 Body weight 54.88 kg Glen Constable LINE WELDER-BACK GRAY CLOTH WASHER Work Phone: [facility] 12-17-2021 12:52-0400 Diastolic blood pressure 86 mm[Hg] Glen Constable LINE WELDER-BACK GRAY CLOTH WASHER Work Phone: [facility] 12-17-2021 12:52-0400 Heart rate 88 /min Glen Constable LINE WELDER-BACK GRAY CLOTH WASHER Work Phone: [facility] 12-17-2021 12:52-0400 SaO2% (BldA) [Mass fraction] 99 % Glen Constable LINE WELDER-BACK GRAY CLOTH WASHER Work Phone: [facility] 12-17-2021 12:52-0400 Systolic blood pressure 132 mm[Hg] Glen Constable LINE WELDER-BACK GRAY CLOTH WASHER Work Phone: [facility] 11-22-2021 13:06-0400 Body height 152.4 cm Charlotte Ray MD Work Phone: [facility] Encounters Encounter Date Encounter Type Care Provider Facility Start: 10-16-2023 ambulatory YISEL Graves ity:[facility] Start: 10-16-2023 End: 10-16-2023 Subsequent hospital visit by physician [facility] Pacemaker Remote Device Check Work Phone: [facility] Procedures Date Procedure Procedure Detail Performing Clinician Start: 09-11-2023 DEVICE EVALUATION Other Other Start: 08-07-2023 DEVICE EVALUATION Other Other Start: 05-22-2023 DEVICE EVALUATION Other Other Start: 04-17-2023 DEVICE EVALUATION Other Other Start: 03-13-2023 DEVICE EVALUATION Other Other Start: 11-21-2022 DEVICE EVALUATION Other Other Start: 10-17-2022 DEVICE EVALUATION Other Other Start: 09-12-2022 DEVICE EVALUATION Other Other Start: 08-01-2022 DEVICE EVALUATION Other Other Start: 04-18-2022 DEVICE EVALUATION Other Other Start: 03-14-2022 DEVICE EVALUATION Other Other Start: 02-07-2022 DEVICE EVALUATION Other Other Start: 01-05-2022 DEVICE EVALUATION Other Other Start: 07-25-2019 End: 07-25-2019 BMI documented within normal parameters - no follow-up plan is required Brittaney M Tres LINE WELDER-BACK GRAY CLOTH WASHER Work Phone: Start: 07-25-2019 End: 07-25-2019 Documentation of current medications Brittaney Joshua LINE WELDER-BACK GRAY CLOTH WASHER Work Phone: Start: 07-25-2019 End: 07-25-2019 Pain assessment documented as positive - follow-up documented Brittaney Joshua LINE WELDER-BACK GRAY CLOTH WASHER Work Phone: Start: 07-25-2019 End: 07-25-2019 Tobacco non-user Brittaney Joshua LINE WELDER-BACK GRAY CLOTH WASHER Work Phone: Start: 05-19-2017 End: 05-19-2017 STEVEN Vitale MD Start: 05-19-2017 End: 05-19-2017 Follow Up Appt 1 year Rafiq Vitale MD Start: 05-19-2017 End: 05-19-2017 STEVEN Vitale MD Start: 05-19-2017 End: 05-19-2017 Follow Up Appt 1 year Rafiq Vitale MD Start: 05-03-2017 End: 05-03-2017 Carotid duplex Chaparro Welch MD Work Phone: Start: 05-03-2017 End: 05-03-2017 Carotid duplex Chaparro Welch MD Work Phone: Start: 04-19-2017 End: 05-03-2017 Carotid duplex Rafiq Vitale MD Start: 04-19-2017 End: 05-19-2017 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 Start: 04-19-2017 End: 05-03-2017 Ecg routine ecg w/least 12 lds w/i&r Rafiq Vitale MD Start: 04-19-2017 End: 05-03-2017 Echocardiography Rafiq Vitale MD Start: 04-19-2017 End: 05-19-2017 Follow Up Appt 1 month Rafiq Vitale MD Start: 04-19-2017 End: 05-03-2017 Nuclear stress test -Alton Vitale MD Start: 04-19-2017 End: 05-03-2017 Carotid duplex Rafiq Vitale MD Start: 04-19-2017 End: 05-19-2017 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 Start: 04-19-2017 End: 05-03-2017 Echocardiography Rafiq Vitale MD Start: 04-19-2017 End: 05-03-2017 Electrocardiogram, complete Rafiq Vitale MD Start: 04-19-2017 End: 05-19-2017 Follow Up Appt 1 month Rafiq Vitale MD Start: 04-19-2017 End: 05-03-2017 Nuclear stress test -Alton Vitale MD NEGATED: Highlighted rowStart: 07-25-2019 End: 11-21-2019 Documentation of current medications Harvey Refugio AT Plan of Treatment Date Care Activity Detail Author Start: 11-01-2029 Tetanus vaccination TETANUS [facility] Start: 08-23-2024 Screening for malignant neoplasm of colon COLORECTAL CANCER SCREENING DISCUSSION [facility] Start: 12-25-2023 End: 12-25-2023 Patient encounter procedure 12/25/2023 Appointment [facility] [address] [place] [phone] [facility] Start: 11-20-2023 End: 11-20-2023 Patient encounter procedure 11/20/2023 Appointment [facility] [place] [address] [place] [phone] [facility] Start: 10-16-2023 End: 10-16-2023 Patient encounter procedure 10/16/2023 Appointment [facility] at [address] [phone] [facility] Start: 09-11-2023 End: 09-11-2023 Patient encounter procedure 09/11/2023 Appointment [facility] at [address] [phone] [facility] Start: 08-07-2023 End: 08-07-2023 Patient encounter procedure 08/07/2023 Appointment [facility] at [address] [phone] [facility] Start: 06-26-2023 End: 06-26-2023 Patient encounter procedure 06/26/2023 Appointment [facility] [place] [address] [place] [phone] [facility] Start: 05-22-2023 End: 05-22-2023 Patient encounter procedure 05/22/2023 Appointment [facility] at [address] [place] [address] [facility] Start: 05-05-2023 COVID-19 VACCINE ( season) COVID-19 VACCINE () [facility] Start: 05-05-2023 Influenza vaccination INFLUENZA VACCINE (#1) [facility] Start: 04-17-2023 End: 04-17-2023 Patient encounter procedure [facility] Start: 03-13-2023 End: 03-13-2023 Patient encounter procedure 03/13/2023 Appointment Cardiovascular Medicine [facility] Start: 12-26-2022 End: 12-26-2022 Patient encounter procedure 12/26/2022 Appointment Cardiovascular Medicine [facility] Start: 11-21-2022 End: 11-21-2022 Patient encounter procedure 11/21/2022 Appointment Cardiovascular Medicine [facility] Start: 10-17-2022 End: 10-17-2022 Patient encounter procedure 10/17/2022 Appointment Cardiovascular Medicine [facility] Start: 09-12-2022 End: 09-12-2022 Patient encounter procedure 09/12/2022 Appointment Cardiovascular Medicine [facility] Start: 05-23-2022 End: 05-23-2022 Patient encounter procedure 05/23/2022 Appointment Cardiovascular Medicine [facility] Start: 05-05-2022 Influenza vaccination [facility] Start: 04-18-2022 End: 04-18-2022 Patient encounter procedure 04/18/2022 Appointment Cardiovascular Medicine [facility] Start: 03-14-2022 End: 03-14-2022 Patient encounter procedure 03/14/2022 Appointment Cardiovascular Medicine [facility] Start: 02-07-2022 End: 02-07-2022 Patient encounter procedure 02/07/2022 Appointment Cardiovascular Medicine [facility] Start: 01-05-2022 End: 01-05-2022 Patient encounter procedure 01/05/2022 Appointment Cardiovascular Medicine [facility] Start: 12-23-2021 End: 12-23-2021 Admission to same day surgery center 12/23/2021 Surgery Electrophysiology Gurdeep Herrera Procedure [address] [place] [address] LOOP SCHED IMPLANT ([id number], [id number]) Cardiovascular Imaging Lab Anthony EmreSharon [facility] Immunizations Immunization Date Immunization Notes Care Provider Fa cility 07-01-2022 influenza virus vaccine, unspecified formulation [facility] Pac[facility] Remote Device Check [facility] 05-06-2020 influenza virus vaccine, unspecified formulation Charlotte Ray MD Work Phone: [facility] Payers Date Payer Category Payer Medicare MEDICARE [employer] MEDIC[place] [employer] PPO [id number] 2021-Present [address] [place] [address] [id number] 2021 Medicare [id number] 1940 Unknown [id number] 1940 Unknown [id number] 1941 Unknown [id number] 1941 Unknown [id number] 1941 Unknown [id number] 1941 Unknown [id number] 1941 Unknown [id number] 1941 Unknown [id number] 1941 Unknown [id number] 1941 Unknown [id number] 1941 Unknown [id number] Social History Date Type Detail Facility Start: 07-25-2019 End: 07-25-2019 Assertion Unknown if ever smoked [facility] Work Phone: Start: 1940 Sex Assigned At Not on file [facility] Start: 11-12-2021 End: 12-23-2021 Exposure to SARS-CoV-2 (event) Not sure [facility] Start: 10-07-2022 End: 10-17-2022 Exposure to SARS-CoV-2 (event) Unable to assess [facility] Start: 12-10-2021 Gender identity Identifies as female gender (finding) [facility] Start: 12-10-2021 Sexual orientation Heterosexual (finding) [facility] Medical Equipment Procedure Code Equipment Code Equipment Origin al Text Equipment Identifier Dates Stent Precise Pr o Rx 6mm 40mm 135cm Rapid Exchange Self - [id number] Start: 06-16-2021 Monitor Cardiac Biomonitor Iii Injectable Sterile - [id number] Start: 12-23-2021 Clinical Notes 12-10-2020 to 12-23-2021 Discharge Instr - ActivityDischarge Instr - DietDischarge Instr - NotifyDischarge Instr - Wound CareLoreta Das APRN-DMITRIY - 12/23/2021 2:12 PM EDTMfrance Das APRN-DMITRIY - 12/23/2021 2:12 PM EDT Note Date & Type Note Facility 12-23-2021 Hospital Discharge instructions JACLYN Rodriguez - 12/23/2021 3:07 PM EDT Driving Restrictions If you have passed out, do not drive for 3 months after your last episode. If you have any questions about this restriction, please call your healthcare provider's office. Rest for 24 hours after you are home. You should have someone with you to help you the first night you are home. DO NOT make any important decisions for 24 hours. DO NOT work around the stove, machinery or power equipment for 24 hours. JACLYN Rodriguez - 12/23/2021 3:07 PM EDT Diet: Cardiac 4gm NA Low sodium, low fat, low cholesterol, caffeine controlled. Sodium restricted to 4 grams. JACLYN Rodriguez - 12/23/2021 3:07 PM EDT Images from the original note were not included. Check your site each day and call the the [facility] if you have: Increased drainage or bleeding at the site An incision that opens Redness, swelling, or warmth at the site A pimple that develops at the incision A thread (suture) along the incision A fever greater than 101 degrees for 38.3 degrees C When you are nauseated, you may feel weak and sweaty and notice a lot of saliva in your mouth. Nausea often leads to vomiting. Most of the time you do not need to worry about nausea and vomiting, but they can be signs of other illnesses. The doctor has checked you carefully, but problems can develop later. If you notice any problems or new symptoms, get medical treatment right away. Follow-up care is a millan part of your treatment and safety. Be sure to make and go to all appointments, and call your doctor if you are having problems. It's also a good idea to know your test results and keep a list of the medicines you take. How can you care for yourself at home? To prevent dehydration, drink plenty of fluids, enough so that your urine is light yellow or clear like water. Choose water and other caffeine-free clear liquids until you feel better. If you have kidney, heart, or liver disease and have to limit fluids, talk with your doctor before you increase the amount of fluids you drink. Rest in bed until you feel better. When you are able to eat, try clear soups, mild foods, and liquids until all symptoms are gone for 12 to 48 hours. Other good choices include dry toast, crackers, cooked cereal, and gelatin dessert, such as Jell-O. When should you call for help? Call 911 anytime you think you may need emergency care. For example, call if: You passed out (lost consciousness) Call your doctor now or seek immediate medical care if: You have symptoms of dehydration, such as: Dry eyes and a dry mouth Passing only a little dark urine Feeling thirstier than usual You have new or worsening belly pain You have a new or higher fever You vomit blood or what looks like coffee grounds Watch closely for changes in your health, and be sure to contact your doctor if: You have on going nausea and vomiting Your vomiting gets worse Your vomiting last longer than 2 days You are not getting better as expected Where can you learn more? Go to https://[email or web address].net/paulieyc zaidi. JACLYN Rodriguez - 12/23/2021 3:07 PM EDT Your incision care The pacemaker may buldge slightly under the skin. This is normal and common right after surgery. This will lesson over the nxt few weeks. You may have bruising around the incision, especially if you take blood thinner medicines, called anticoagulants, such as aspirin or warfarin. Itching is a normal part of the healing process. Try not to rub or scratch the incision site. Keep your incision clean and dry. Your dressing is waterproof and can be worn in the shower. Your dressing can be left in place for up to seven (7) days. Dressing may need to be changed sooner, depending on the amount of fluid it absorbs. Dressing flexes with skin during body movement. documented in this encounter [facility] 12-23-2021 History and physical note Angelique Brennan is a 81 y.o. female here for ILR. H&P reviewed from 12/17/21 by Glen ANAYA, updates as listed. Updates: The patient denies chest pain, dyspnea, edema, lightheadedness, palpitations and syncope. No recent fever/flu/illness Patient Active Problem List Diagnosis Stroke-like symptoms Carotid stenosis, symptomatic, with infarction Electrolyte disorder (K, Cl, or Na) Anemia (Low HGB) Acute blood loss anemia Acute ischemic stroke Objective Smoking Status Never Assessed There is no height or weight on file to calculate BMI. Telemetry SR Cardiac Testing ECHOCARDIOGRAM 06/11/2021 (Final) Interpretation Summary Normal left ventricular size and systolic function. EF 65%. Normal diastolic filling parameters. Normal right ventricular size and function. Calcified aortic valve with moderate stenosis and mild to moderate regurgitation. There is mild mitral regurgitation. Referring MD: Cory POLLACK MD: Not established Anticoagulation: None Antiarrythmics: None Lab Results Component Value Date WBC 10.85 06/19/2021 HGB 9.4 (L) 06/19/2021 HCT 29.0 (L) 06/19/2021 PLATELET 623 (H) 06/19/2021 MCV 91.8 06/19/2021 Lab Results Component Value Date SODIUM 138 06/19/2021 POTASSIUM 3.9 06/19/2021 CHLORIDE 108 06/19/2021 CO2 21 (L) 06/19/2021 BUN 4 (L) 06/19/2021 CREATSERUM 0.53 06/19/2021 GLUCOSE 108 (H) 06/19/2021 INR Date Value Ref Range Status 06/17/2021 1.2 (H) 0.9 - 1.1 Final 06/10/2021 1.1 0.9 - 1.1 Final 06/09/2021 1.1 0.9 - 1.1 Final PTT Date Value Ref Range Status 06/17/2021 34.9 (H) 24.0 - 34.3 sec Final 06/10/2021 29.4 24.0 - 34.3 sec Final 06/09/2021 25.7 24.0 - 34.3 sec Final Medications Prior to Admission Medication Sig Dispense Refill Last Dose amLODIPine 10 MG tablet Take 10 mg by mouth daily. 12/23/2021 aspirin 81 MG Chew Tab chewable tablet Chew 1 tablet daily. 30 tablet 1 12/22/2021 at Unknown time cholecalciferol 50 MCG (2000 UT) capsule Take 2,000 Units by mouth daily. 12/23/2021 etodolac 400 MG tablet Take 400 mg by mouth every other day. 12/23/2021 Evolocumab 140 MG/ML Solution Auto-injector injection Evolocumab (Repatha Sureclick) 140 mg/mL pen injector Active 140 MG SC every 2 weeks January 09, 2021 11:20am Review of Systems - Negative except as listed in HPI Physical Exam General appearance - alert, LOC x 3, well appearing, and in no distress Neck - supple, no significant adenopathy, carotids upstroke normal bilaterally without bruits. Chest - lungs clear to auscultation, breath sounds equal and symmetric, no rhonchi, rales or wheezes, no accessory muscle use Heart - regular rate and rhythm, S1 and S2 normal, no murmurs, clicks, gallops or rubs, normal bilateral carotid upstroke without bruits, no JVD Abdomen - soft, nontender, nondistended, no masses or organomegaly, bowel sounds present x 4 quadrants. Extremities - peripheral pulses normal, no pedal edema, no clubbing or cyanosis Skin - normal coloration and turgor, no rashes, no suspicious skin lesions noted Assessment and Plan: Cryptogenic stroke - Proceed with ILR. Loreta Das APRN-BACK GRAY CLOTH WASHER 12/23/2021 Associated attestation - Yisel Steen MD - 12/23/2021 3:20 PM EDT Attending Physician Note I have personally interviewed and examined this patient with the Nurse Practitioner on 12/23/21. I have reviewed the history and examination and edited these in the note above. I agree with the medical decision and components of the note as edited by me. Patient is alert and oriented and VS stable. She has no complaints today. Cryptogenic CVA--she presents today for elective ILR implant for surveillance of AF as a potential mechanism for CVA. The procedure was explained with indication, risks and benefits and she consents to proceed. Yisel Steen MD, [facility], [facility] Dami[place] and Rolanda Dowd Chair in Cardiac Electrophysiology Professor of Clinical Medicine [facility] Work Phone: 12-23-2021 History and physical note Angelique Brennan is a 81 y.o. female here for ILR. H&P reviewed from 12/17/21 by Glen ANAYA, updates as listed. Updates: The patient denies chest pain, dyspnea, edema, lightheadedness, palpitations and syncope. No recent fever/flu/illness Patient Active Problem List Diagnosis Stroke-like symptoms Carotid stenosis, symptomatic, with infarction Electrolyte disorder (K, Cl, or Na) Anemia (Low HGB) Acute blood loss anemia Acute ischemic stroke Objective Smoking Status Never Assessed There is no height or weight on file to calculate BMI. Telemetry SR Cardiac Testing ECHOCARDIOGRAM 06/11/2021 (Final) Interpretation Summary Normal left ventricular size and systolic function. EF 65%. Normal diastolic filling parameters. Normal right ventricular size and function. Calcified aortic valve with moderate stenosis and mild to moderate regurgitation. There is mild mitral regurgitation. Referring MD: Cory POLLACK MD: Not established Anticoagulation: None Antiarrythmics: None Lab Results Component Value Date WBC 10.85 06/19/2021 HGB 9.4 (L) 06/19/2021 HCT 29.0 (L) 06/19/2021 PLATELET 623 (H) 06/19/2021 MCV 91.8 06/19/2021 Lab Results Component Value Date SODIUM 138 06/19/2021 POTASSIUM 3.9 06/19/2021 CHLORIDE 108 06/19/2021 CO2 21 (L) 06/19/2021 BUN 4 (L) 06/19/2021 CREATSERUM 0.53 06/19/2021 GLUCOSE 108 (H) 06/19/2021 INR Date Value Ref Range Status 06/17/2021 1.2 (H) 0.9 - 1.1 Final 06/10/2021 1.1 0.9 - 1.1 Final 06/09/2021 1.1 0.9 - 1.1 Final PTT Date Value Ref Range Status 06/17/2021 34.9 (H) 24.0 - 34.3 sec Final 06/10/2021 29.4 24.0 - 34.3 sec Final 06/09/2021 25.7 24.0 - 34.3 sec Final Medications Prior to Admission Medication Sig Dispense Refill Last Dose amLODIPine 10 MG tablet Take 10 mg by mouth daily. 12/23/2021 aspirin 81 MG Chew Tab chewable tablet Chew 1 tablet daily. 30 tablet 1 12/22/2021 at Unknown time cholecalciferol 50 MCG (1999 UT) capsule Take 2,000 Units by mouth daily. 12/23/2021 etodolac 400 MG tablet Take 400 mg by mouth every other day. 12/23/2021 Evolocumab 140 MG/ML Solution Auto-injector injection Evolocumab (Repatha Sureclick) 140 mg/mL pen injector Active 140 MG SC every 2 weeks 2 January 09, 2021 11:20am Review of Systems - Negative except as listed in HPI Physical Exam General appearance - alert, LOC x 3, well appearing, and in no distress Neck - supple, no significant adenopathy, carotids upstroke normal bilaterally without bruits. Chest - lungs clear to auscultation, breath sounds equal and symmetric, no rhonchi, rales or wheezes, no accessory muscle use Heart - regular rate and rhythm, S1 and S2 normal, no murmurs, clicks, gallops or rubs, normal bilateral carotid upstroke without bruits, no JVD Abdomen - soft, nontender, nondistended, no masses or organomegaly, bowel sounds present x 4 quadrants. Extremities - peripheral pulses normal, no pedal edema, no clubbing or cyanosis Skin - normal coloration and turgor, no rashes, no suspicious skin lesions noted Assessment and Plan: Cryptogenic stroke - Proceed with ILR. Loreta Das APRN-BACK GRAY CLOTH WASHER 12/23/2021 Associated attestation - Yisel Steen MD - 12/23/2021 3:20 PM EDT Attending Physician Note I have personally interviewed and examined this patient with the Nurse Practitioner on 12/23/21. I have reviewed the history and examination and edited these in the note above. I agree with the medical decision and components of the note as edited by me. Patient is alert and oriented and VS stable. She has no complaints today. Cryptogenic CVA--she presents today for elective ILR implant for surveillance of AF as a potential mechanism for CVA. The procedure was explained with indication, risks and benefits and she consents to proceed. Yisel Steen MD, [facility], [facility] and Rolanda Dowd Chair in Cardiac Electrophysiology Professor of Clinical Medicine documented in this encounter [facility] 12-17-2021 History of Present illness Narrative Subjective: Angelique Brennan returns to us for 6mth follow up after a RIGHT SHASHA with Dr spangler Medications, allergies, and past medical history reviewed and updated in the chart Vitals: 12/17/21 1252 BP: 132/86 Pulse: 88 Temp: 98 degrees F (36.7 degrees C) TempSrc: Infrared SpO2: 99% Weight: 54.9 kg (121 lb) Height: 1.524 m (5') Physical Exam: she is A&O x4, speech fluent, naming and repetition intact able to perform simple math EOMI, visual oquendo full, PERRL face symmetrical, face sensation intact tongue midline, equal uvula rise, no dysarthria hearing equal bilateral Motor Function: Delt Bi Tri HG HF KF KE PF DF Right 5 5 5 5 5 5 5 5 5 Left 5 5 5 5 5 5 5 5 5 Reflexes: Bi Tri Rad Pat Ach Right 2+ 2+ 2+ 2+ 2+ Left 2+ 2+ 2+ 2+ 2+ sensation grossly intact to light touch finger to nose no ataxia no dysmetria stable gait I personally reviewed the following Imaging: Carotid Doppler. Stable patent stent No significant velocity changes or worsening stenosis on the LEFT Assessment It was a pleasure to see Ms. Angelique Brennan a 81 y.o. female in Neurosurgery Clinic today for continued follow-up on a stent revascularization of the right carotid artery with Dr. Spangler. Plan - she may stop the clopidogrel - she will reduce the aspirin 81 mg daily in remain on this for the rest of her life I recommended a carotid artery Doppler in 2 years to continue to monitor the carotid artery stent. Voice recognition software was used for this note. I have edited this note but errors may occur documented in this encounter [facility] 11-22-2021 History of Present illness Narrative [facility] Department of Neurology Section of Cerebrovascular Disease and Neurocritical Care Return Visit CHIEF COMPLAINT: Follow-up. Date of Last Visit: 06/19/21 HISTORY OF PRESENT ILLNESS: The patient is a 81 y.o. -handed female with a history of who presents in stroke clinic for follow up. In summary, please refer to the prior clinic note dated. Angelique Brennan is a 81 y.o. female with a history of HTN, HLD who presented to [place] [facility] ED on 06/09/21 with left sided weakness. LKW 2200 on 06/08/21. Seen on telestroke by Dr. Peng, NIHSS was 7. CTA showed R. ICA stenosis. Loaded with ASA and Plavix. Transferred to [facility] for further evaluation. On arrival to [facility], NIHSS was 7. CTP showed no perfusion abnormalities. She reported intermittent weakness for last 3-4 days. She was admitted to neurovascular team. MRI showed acute infarcts in the right hemipons and right external capsule. Interventions: Symptomatic Right ICA stenosis, right external capsule and right pontine stroke s/p Right SHASHA on 06/16: CTH stroke: No acute intracranial hemorrhage. Presumed residua of chronic small vessel ischemic disease. CTA brain/neck ([facility]): R. ICA stenosis >70%. CTP: symmetric parametric perfusion maps. MRI brain: acute infarcts in the right hemipons and right external capsule. TTE: EF 65%, normal atrial septum. LDL 48, HgbA1c 5.8. 06/10: DSA with 60% right ICA stenosis. -Stroke Etiology (TOAST Criteria): large artery athero (R. ICA stenosis) -Antiplatelet plan: Aspirin 81mg and Plavix 75mg for stent placement -Statin therapy: LDL 48, Weekly subcutaneous injection for lipid lowering -Blood Pressure goal: normotension Additional medical issues: Acute blood loss anemia -Pt reports (and witnessed) melena since -Concern for UGI bleed -On ASA/Plavix for R. ICA stent (placed 06/16) -GI consult -06/17 EGD with non-bleeding Liam erosions (suspected source), rec continue protonix 40mg daily, trend H/H q12hr, consider colonoscopy if further decline -Improved H/H HTN (POA): home med list includes amlodipine 10mg -bradycardic and hypotensive post stent requiring levo gtt -levo weaned off, allow for normotension -fold in home BP meds pending stability. Interim: No new stroke symptoms since the last hospital visit. Exam showed no deficits. CURRENT MEDICATIONS: Current Outpatient Medications Medication Sig Dispense Refill amLODIPine 10 MG tablet Take 10 mg by mouth daily. aspirin 81 MG Chew Tab chewable tablet Chew 1 tablet daily. 30 tablet 1 cholecalciferol 50 MCG (2000 UT) capsule Take 2,000 Units by mouth daily. clopidogrel 75 MG tablet Take 1 tablet by mouth daily. 30 tablet 3 etodolac 400 MG tablet Take 400 mg by mouth every other day. Evolocumab (Repatha) 140 MG/ML Solution Prefilled Syringe injection Inject 140 mg under the skin every 14 days. No current facility-administered medications for this visit. PAST MEDICAL, SOCIAL AND FAMILY HISTORY: No significant change since prior visit. REVIEW OF SYSTEMS: No history of fever, chills, sweats, weight loss, fatigue, double vision, blurring, hearing loss, tinnitus, voice change, chest pain, dyspnea, palpitations, cough, nausea, vomiting, diarrhea, constipation, hematuria, dysuria, frequency, joint pain, joint swelling, rash, easy bruising, bleeding, headache, dizzy, LOC, focal motor weakness, sensory loss, gait problems, depression, or insomnia. PHYSICAL EXAM: Vitals: 11/22/21 1306 BP: 135/72 Pulse: 102 Temp: 98.1 degrees F (36.7 degrees C) TempSrc: Infrared Weight: 53.5 kg (118 lb) Height: 1.524 m (5') Neurological examination: General: The patient appears nutritionally appropriate, well-groomed, and appears comfortable in no acute distress. Cardiovascular: no carotid bruits bilaterally. Mental Status: The patient s mental status was normal including orientation, memory, attention span, concentration, and fund of knowledge. Language was intact. Cranial nerves: Visual oquendo full, pupils were equal and reactive to light, and extra-ocular motion was intact. Face motion and sensation were symmetric. Hearing was symmetric to bilateral finger rub. Palate was symmetric. Bilateral shoulder shrug was intact. Tongue was midline with normal movement. There was no dysarthria. Motor: Normal strength and tone in all four extremities. No pronator drift. Sensation: Intact light touch bilaterally, no extinction. Coordination: Bilateral finger to nose was normal. There was no dysmetria. Gait: Gait was narrow-based and steady. Patient is able to perform on toes, on heels, and tandem without difficulty. Romberg is negative. NIH STROKE SCALE 1a. Level of consciousness: 0 1b. Level of consciousness questions: 0 1c. Level of consciousness commands: 2. Best Gaze: 0 3. Visual: 0 4. Facial Palsy: 0 5a. Motor left arm:0 5b. Motor right arm: 0 6a. Motor left le 6b. Motor right le 7. Limb Ataxia:0 8. Sensory: 0 9. Best Language: 0 10. Dysarthria: 0 11. Extinction and Inattention: 0 TOTAL: 0 Modified Linn Score: 0 DATA: HgBA1c: Lab Results Component Value Date HGBA1C 5.8 (H) 06/10/2021 Lipid panel: Lab Results Component Value Date CHOLESTEROL 117 06/09/2021 TRIG 197 (H) 06/09/2021 HDL 30 (L) 06/09/2021 LDLCALC 48 06/09/2021 RADIOLOGY REVIEW: I have reviewed radiology image(s) and report(s). ASSESSMENT: The patient is a 81 y.o. female with a history of who presents for follow-up. Neurological examination is nonfocal/shows. Neuroimaging showed right MCA stroke and Pontine strokes.. The patient s constellation of signs and symptoms and neuroimaging findings are most consistent with stroke. For secondary stroke prevention, the patient should continue daily anti-platelet medication and vascular risk factor modification per PCP. The patient can follow-up with me on a prn basis. Exam showed no deficits. Exact etiology of the stroke is not known. PLAN: The following are my recommendations: ? Order the following tests: ? Anti-platelet medication: continue aspirin ? Physical therapy/rehabilitation: not needed. ? To reduce the risk of future ischemic stroke, the patient needs continued vascular risk factor modification. The following are the recommended guidelines*: ? LDL Goal < 70 mg/dL ? Smoking Cessation ? Diabetes management ? Blood pressure control should achieve <130/80 mmHg. BP management should aim to achieve marine oil terminal superintendent control in a reasonable amount of time, taking into consideration the individual patient's requirements and characteristics. ? Weight Management: Goal for BMI is 18.5-24.9 kg/m2. ? Alcohol: No more than 2 drinks/day for men or 1 drink/day for non- women. ? Promote lifestyle modification: weight control, physical activity, moderation of alcohol intake, moderate sodium intake. ? Follow-up with me as needed. Advised to get loop recorder placement to look for atrial fibrillation. It is OK to get knee joint replacement. Advised that she will have to stop aspirin 5 days before the surgery and then have the surgery and then re etsrt it when ok with the surgeon. Advised that there will be a risk of stroke when aspirin will be held. Patient understood the conversation. *References: (1) Savanah et al, Stroke 2011, 42:227-276; (2) Jones et al, Stroke 2006, 2690-0000; (3) Emma et al, Stroke 2006; 37: 577-617; (4) Loli Carver. FIDEL 2003, 289:1308-0440; (5) Jones, et al, Circulation 2001, 103-163; (6) Brown, et al, Stroke 1999, 2146-0781;(7) ATP III. See also http:///nhlbi.nih.gov/guidelines/ cholesterol/index.htm Charlotte Ray MD documented in this encounter [facility] 07-12-2021 Note HNO ID: [id number] Author: Chaparro Borges PA-C Service: ? Author Type: Physician Lamp Tester And Inspector Type: Progress Notes Filed: 07/13/2021 6:58 AM Note Text: Grace comes in for repeat left knee injeciton. The last injeciton was in March. Since then she has had two hospitalizations, one for diverticulitis and one for a small stroke. She states the only residual from the stroke is some tingling in her hands. Large Joint Arthro/Inj: L knee joint Informed Consent Consent Obtained: Verbal [place] Protocol A moment to CARE was completed. SIGN IN Personnel directly involved with the procedure wore the appropriate PPE. Special Equipment: N/A Patient/Surrogate Stated/Verified: Patient name, Date of , Relevant allergies and Intended procedure TIME OUT Intended patient and procedure match the source document(s). Consent documented and matches the intended procedure. Relevant labs, photos, and/or imaging studies have been reviewed. Correct side/site marked and visible. Medications required for procedure verified. No fire risk assessment and interventions applicable. No implant(s) inserted. 07/12/2021 11:37 AM The procedure site was prepped in the usual sterile fashion. Site: L knee joint Medications: 12 mg betamethasone acetate-betamethasone sodium phosphate 6 mg/mL Anesthetics: 3 mL lidocaine (PF) 10 mg/mL (1 %) Outcome: Tolerated well, no immediate complications Post-injection instructions were reviewed with the patient and the patient voiced understanding of these instructions. SIGN OUT No specimen collected. No instruments, equipment or retained foreign bodies applicable. Post-procedure follow-up management communicated and Plan of Care Visit completed when applicable Thank you. Chaparro Borges PA-C [facility] 03-16-2021 Note HNO ID: [id number] Author: Chaparro Borges PA-C Service: ? Author Type: Physician Lamp Tester And Inspector Type: Progress Notes Filed: 03/16/2021 9:17 AM Note Text: Angelique comes today for repeat knee injections, bilateral, but states the right knee is not hurting and has done very well since the last injection in December. We will only inject the left knee today. Current left knee pain is 2 out 10 at rest, 4-5 out of 10 activity related and not keeping her up at night. Large Joint Arthro/Inj: L knee joint The risks, benefits and alternatives of the procedure were reviewed with the patient/surrogate, who agreed to proceed. Time Out: Time Out completed 03/16/2021 9:17 AM The procedure site was prepped in the usual sterile fashion. Allergies were reviewed Site: L knee joint Medications: 12 mg betamethasone acetate-betamethasone sodium phosphate 6 mg/mL Anesthetics: 3 mL lidocaine (PF) 10 mg/mL (1 %) Outcome: Tolerated well, no immediate complications Post-injection instructions were reviewed with the patient and the patient voiced understanding of these instructions. Chaparro Borges PA-C [facility] 12-10-2020 Note HNO ID: [id number] Author: Chaparro Borges (Pa) Service: ? Author Type: Physician Lamp Tester And Inspector Type: Progress Notes Filed: 12/10/2020 9:21 AM Note Text: PROCEDURE- JOINT INJECTION Joint Sites: knee She has had previous injections in the past, last time was 06/12/20 and the injections worked well. She presents for repeat injections today. On exam, the joint is cool to touch without sign of infection. Flexion is limited and is uncomfortable. Crepitation is present with ROM. The proposed risks versus benefits of local anesthetic and steroid injection were discussed in detail. The patient verbalizes understanding and elects to proceed with the injection. The procedure was verified with the patient, including the correct injection site, and confirmation with both the patient and biomedical equipment support specialist. Large Joint Arthro/Inj: bilateral knee joints The risks, benefits and alternatives of the procedure were reviewed with the patient/surrogate, who agreed to proceed. Time Out: Time Out completed 12/10/2020 9:19 AM The procedure site was prepped in the usual sterile fashion. Allergies were reviewed Site: bilateral knee joints Medications (Right): 12 mg betamethasone acetate-betamethasone sodium phosphate 6 mg/mL Medications (Left): 12 mg betamethasone acetate-betamethasone sodium phosphate 6 mg/mL Anesthetics (Right): 3 mL lidocaine (PF) 10 mg/mL (1 %) Anesthetics (Left): 3 mL lidocaine (PF) 10 mg/mL (1 %) Outcome: Tolerated well, no immediate complications Post-injection instructions were reviewed with the patient and the patient voiced understanding of these instructions. Chaparro Borges PA-C [facility] Cryptogenic stroke Unspecified cerebral artery occlusion with cerebral infarction Carotid stenosis, symptomatic, with infarction- Primary Occlusion and stenosis of carotid artery with cerebral infarction Cryptogenic stroke Unspecified cerebral artery occlusion with cerebral infarction [facility] Diagnosis Cryptogenic stroke Unspecified cerebral artery occlusion with cerebral infarction [facility] Auth/Cert Specialty Diagnoses / Procedures Referred By Papa wells Referred To Contact Diagnoses Cryptogenic stroke Cryptogenic stroke [I63.9] Procedures [place] INSERTION SUBQ CARDIAC RHYTHM MONITOR W/PRGRMG LOOP SCHED IMPLANT ([id number], [id number]) Referral ID Status Reason Start Date Expiration Date Visits Re quested Visits Authorized [id number] 1 1 [facility] Summary Purpose Family History No Family History Records FoundThere may be information available, but it has not been provided by the sender.No Family History Records FoundNo Family History Records Found Advance Directives No Advanced Directives Records FoundLatest Code Status on File Code Status Date Activated Date Inactivated Comments Full Code 06/16/2021 5:39 PM Full Code 06/09/2021 1:59 PM 06/16/2021 5:39 PM Latest Code Status on File Code Status Date Activated Date Inactivated Comments Full Code 06/16/2021 5:39 PM Full Code 06/09/2021 1:59 PM 06/16/2021 5:39 PM Latest Code Status on File Code Status Date Activated Date Inactivated Comments Full Code 06/16/2021 5:39 PM Code Status History Code Status Date Activated Date Inactivated Comments Full Code 06/09/2021 1:59 PM 06/16/2021 5:39 PM Chief Complaint Chief Complaint Description Start Date lower back pain Preliminary chief co mplaint data, not yet signed by the author as of Instructions Instruction Description Start Date CompletedPlease follow-up wi Primary Care Physician or Marketing Account Executive for treatment or adjustment of medication regarding elevated blood pressure. Assessments There may be information available, but it has not been provided by the sender. Review of System There may be information available, but it has not been provided by the sender. History of Present Illness There may be information available, but it has not been provided by the sender. Reason for Referral Specialty Diagnoses / Procedures Referred By Papa wells Referred To Contact Diagnoses Cryptogenic stroke Procedures CASE REQUEST - EP PROC (EPS, ABLATION, DEVICE) Dagmar Macias, LINE WELDER-BACK GRAY CLOTH WASHER [address] [place] [address] Referral ID Status Reason Start Date Expiration Date V isits Requested Visits Authorized [id number] New Request 11/22/2021 12/17/2022 1 1 Additional Source Comments INFORMATION SOURCE (unrecogn ized section and content) DATE CREATED AUTHOR AUTHOR'S ORGANIZ ATION 11/21/2021 [facility] DATE CREATED AUTHOR AUTHOR'S ORGANIZ ATION 10/17/2023 [facility] Reason for Visit (unrecogniz ed section and content) Reason Comments Follow-up Reason Comments Follow-up Care Teams (unrecognized sec tion and content) Station Mechanic Relationship Specialty Start Date End Date Coco Marrero MD [address] [place], [place] [id number] PCP - General Family Medicine 06/09/21 Station Mechanic Relationship Specialty Start Date End Date Coco Marrero MD [address] [place], [place] [id number] PCP - General Family Medicine 06/09/21 Charlotte Ray MD [address] [place] [phone] PCP - Referring 1 Neurology 12/22/21 Station Mechanic Relationship Specialty Start Date End Date Coco Marrero MD [address] [place] [address] PCP - General Family Medicine 06/09/21 Charlotte Ray MD [address] [place] [phone] PCP - Referring 1 Neurology 12/22/21 Station Mechanic Relationship Specialty Start Date End Date Coco Marrero MD [address] [place] [address] PCP - General Family Medicine 06/09/21 Charlotte Ray MD [address] [place] [phone] PCP - Referring 1 Neurology 12/22/21 Station Mechanic Relationship Specialty Start Date End Date Coco Marrero MD [address] [place] [address] PCP - General Family Medicine 06/09/21 Charlotte Ray MD [address] [place] [phone] PCP - Referring 1 Neurology 12/22/21 Station Mechanic Relationship Specialty Start Date End Date Coco Marrero MD [address] [place] [address] PCP - General Family Medicine 06/09/21 Charlotte Ray MD [address] [place] [phone] PCP - Referring 1 Neurology 12/22/21 Station Mechanic Relationship Specialty Start Date End Date Coco Marrero MD [address] [place] [address] PCP - General Family Medicine 06/09/21 Charlotte Ray MD [address] [place] [address] PCP - Referring 1 Neurology 12/22/21 Station Mechanic Relationship Specialty Start Date End Date Coco Marrero MD [address] [place] [address] PCP - General Family Medicine 06/09/21 Charlotte Ray MD [address] [place] [address] PCP - Referring 1 Neurology 12/22/21 Station Mechanic Relationship Specialty Start Date End Date Coco Marrero MD [address] [place] [address] PCP - General Family Medicine 06/09/21 Charlotte Ray MD [address] [place] [address] PCP - Referring 1 Neurology 12/22/21 PRN Active and Recently Administ ered Medications (unrecognized section and content) FOR RECORDS PERTAINING TO PATIENTS WHO ARE OR HAVE BEEN ENROLLED IN A CHEMICAL DEPENDENCY/SUBSTANCEABUSE PROGRAM, SOME INFORMATION MAY BE OMITTED. This clinical summary was aggregated from multiple sources. Caution should be exercised in using it in the provision of clinical care. This summary normalizes information from multiple sources, and as a consequence, information in this document may materially change the coding, format and clinical context of patient data. In addition, data may be omitted in some cases. CLINICAL DECISIONS SHOULD BE BASED ON THE PRIMARY CLINICAL RECORDS. [employer] provides no warranty or guarantee of the accuracy or completeness of information in this document.
--- NOTE | 2023-11-02 09:06 | CL.D_ITS ---
Patient Name: BENNY LAMBERT Study Date: 11/02/2023 Performing: Rafiq Vitale MD Ht: 60 inches 152.4 cm : 1940 Wt: 130.01 lbs 58.97 kg Age: 83 Gender: female BSA: 1.55 PROCEDURE(S) PERFORMED DC01-([id number])LHC/COR/LV CLINICAL PROFILE AND INDICATIONS Indications: Valvular Disease Heart Failure: None Stress/Imaging Stress/Image Study Performed: No CAD Presentations: No Sxs, no angina. CONCLUSIONS Severe LAD disease moderate right coronary artery disease and severe aortic stenosis with a calcified valve and a mildly dilated aortic root. RECOMMENDATIONS Consider evaluation with a surgical and PCI team as to the best approach for revascularization as well as aortic valve replacement. DESCRIPTION OF PROCEDURE The patient arrived to the procedure lab. The risks and benefits of the procedure as well as a full description of our services here and current unavailability of surgical backup were fully explained to the patient and/or their significant other prior to the catheterization. The Timeout was completed, verifying the correct patient and procedure. The patient's procedural site was prepped and draped in the usual fashion. Local anesthetic was given subcutaneously to right radial region with Lidocaine 2%. Using a modified Seldinger technique, arterial access was obtained via the right radial artery, a 6Fr sheath was inserted. Right Coronary Artery selective angiography was then performed in multiple views using a 5 Fr. 4.0 [place] catheter. Left Coronary Artery selective angiography was performed in multiple views using a 5 Fr. JL3.5 catheter. Left Ventriculography was performed in HARPER projection using a 5 Fr. Pigtail catheter.The arterial sheath was pulled and a TR Band was applied for hemostasis w/. 14ml air CORONARY ANGIOGRAPHY DOMINANCE: Right Dominant LEFT HEART ASSESSMENT Left Ventricular Ejection Fraction: by LV Gram 65 % Normal LV wall motion Normal Left Ventricular systolic function LEFT MAIN: No significant disease noted LEFT ANTERIOR DESCENDING ARTERY: Severe calcification, 80% stenosis noted of the proximal left anterior descending artery with mild diffuse disease distally CIRCUMFLEX ARTERY: Mild calcification, Mild luminal irregularities less than 30% RIGHT CORONARY ARTERY: Diffuse disease with moderate luminal irregularities up to 50% VALVE FINDINGS: Aortic Valve Calcification - severe COMPLICATIONS No Complications PROCEDURE MEDICATIONS Versed 1 mg IV Fentanyl 50 mcg IV Baby Aspirin (81mg) 1 Tabs PO @ 11/02/2023 07:17:36 Heparin given IA 11/02/2023 08:07:20 Verapamil 2.5mg 3000 units of Heparin given IA 11/02/2023 08:07:20 SUMMARY OF HEMODYNAMIC DATA Time AIR REST ECG 07:17:46 Art 107/62 (79) 08:13:46 AO 105/65 (83) SA 08:16:28 LV 183/7, 20 08:32:01 LV 187/7, 19 08:32:09 LV 173/18, 22 08:32:39 LV 172/18, 24 08:32:49 LV 186/8, 20 08:33:14 LV 187/8, 20 08:33:15 LVp 189/8, 21 08:33:21 AOp 136/72 (99) 08:33:28 Valve Area (c P-P/ms Time Signed By Rafiq Vitale MD On 11/02/2023 09:06:36 Rafiq Vitale MD
== END 2023-11-02 10:45 | disposition home or self-care (01) ==
LOC: CLSP 07:01
PROVIDERS: Physician Assistant Medical; PCP Family Medicine; Referring Provider Internal Medicine Cardiovascular Disease; Visit Provider Internal Medicine Cardiovascular Disease
DX: I35.0 Nonrheumatic aortic (valve) stenosis (principal); I77.810 Thoracic aortic ectasia; I25.10 Atherosclerotic heart disease of native coronary artery without angina pectoris; I10 Essential (primary) hypertension; E78.00 Pure hypercholesterolemia, unspecified; Z79.899 Other long term (current) drug therapy; Z86.73 Personal history of transient ischemic attack (TIA), and cerebral infarction without residual deficits
CPT/HCPCS: 36415; 71046; 80053; 82607; 82728; 82746; 85025; 85610; 85730; 93458; 99152; 99153; J7040; C1769; C1894; Q9967

== ENCOUNTER → 2023-11-30 | Outpatient (CLI) | payer MEDICARE, SELFPAY ==
[2023-11-30 15:12] LABS: Absolute Neutrophil Count 3.8 X10^3/uL (2.0-7.7); Basophil# 0.04 X10^3/uL; Basophil% 0.7 % (0-1); Eosinophils% 1.7 % (0-5); Hematocrit 41.5 % (37-47); Hemoglobin 13.9 g/dL (12.0-15.0); Lymphocyte % 22.2 % (19-41); Mean Corp Hgb Conc 33.5 g/dL (32-36); Mean Corpuscular Hgb 30.2 pg (27.0-32.0); Mean Corpuscular Volume 90.2 fL (81-99); Mean Platelet Vol. 9.9 fl (6.2-12.0); Monocyte# 0.59 X10^3/uL; Monocyte% 10.1 % (0-10); NRBC Flagged by Analyzer 0 % (0-5); Neutrophil % 64.8 % (47-70); Platelet Count 317 K/mm3 (150-450); RBC Distribution Width CV 13.1 % (11.6-14.6); RBC Distribution Width SD 43.3 fl (35.1-43.9); White Blood Count 5.9 K/mm3 (4.4-11.0)
[2023-11-30 15:53] LABS: BNP,B-Type NATRIURETIC PEPTIDE 97.9 pg/mL (0-100)
[2023-11-30 16:02] LABS: ALB/GLOB Ratio 1.2 RATIO (0.9-2.4); AST(SGOT) 29 U/L (15-37); Alanine Aminotransfer ALT/SGPT 23 U/L (13-56); Albumin, Serum 3.9 g/dL (3.2-5.0); Alkaline Phosphatase 60 U/L (45-117); Anion Gap 5 (5-15); BUN 17 mg/dL (7-18); BUN/Creat Ratio 20.5 RATIO (10-20); Calcium,Total 9.8 mg/dL (8.5-10.1); Chloride 105 mmol/L (98-107); Creatinine, Serum 0.83 mg/dL (0.55-1.02); EST Glomerular Filtration Rate 70 mL/min (>60); Est Glom Filt Rate - Afr Amer 85 mL/min (>60); Globulin 3.2 g/dL (2.2-4.2); Glucose 102 mg/dL (74-106); Potassium 4.1 mmol/L (3.5-5.1); Protein, Total 7.1 g/dL (6.4-8.2); Sodium Level 140 mmol/L (136-145)
== END | disposition home or self-care (01) ==
LOC: LAB 14:37
PROVIDERS: PCP Family Medicine; Referring Provider Nurse Practitioner Adult Health; Visit Provider Nurse Practitioner Adult Health
DX: I35.0 Nonrheumatic aortic (valve) stenosis (principal); R06.02 Shortness of breath
CPT/HCPCS: 36415; 80053; 83880; 85025

== ENCOUNTER → 2024-01-19 | Outpatient (CLI) | payer MEDICARE, SELFPAY ==
[2024-01-19 16:15] LABS: Hematocrit 41.9 % (37-47); Hemoglobin 13.5 g/dL (12.0-15.0); Mean Corp Hgb Conc 32.2 g/dL (32-36); Mean Corpuscular Hgb 29.8 pg (27.0-32.0); Mean Corpuscular Volume 92.5 fL (81-99); Mean Platelet Vol. 10.2 fl (6.2-12.0); Platelet Count 299 K/mm3 (150-450); RBC Distribution Width CV 12.8 % (11.6-14.6); RBC Distribution Width SD 43.6 fl (35.1-43.9); Red Blood Count 4.53 M/mm3 (4.2-5.4)
[2024-01-19 16:50] LABS: Anion Gap 6 (5-15); BUN 17 mg/dL (7-18); BUN/Creat Ratio 19.4 RATIO (10-20); Calcium,Total 9.6 mg/dL (8.5-10.1); Chloride 105 mmol/L (98-107); Creatinine, Serum 0.88 mg/dL (0.55-1.02); EST Glomerular Filtration Rate 66 mL/min (>60); Est Glom Filt Rate - Afr Amer 79 mL/min (>60); Glucose 112 mg/dL (74-106); Sodium Level 139 mmol/L (136-145)
== END | disposition home or self-care (01) ==
LOC: MTLAB 13:38
PROVIDERS: PCP Family Medicine; Referring Provider Nurse Practitioner Adult Health; Visit Provider Nurse Practitioner Adult Health
DX: I35.0 Nonrheumatic aortic (valve) stenosis (principal)
CPT/HCPCS: 36415; 80048; 85027

== ENCOUNTER 2024-02-29 09:30 | Outpatient (RCR) | payer MEDICARE, SELFPAY ==
--- NOTE | 2023-12-20 14:57 | HP.PTEVAL_ITS ---
Patient's Visit Information Visit Information Visit Information: BENNY LAMBERT is a 83 year old F referred to Physical Therapy by DESIRE QUINTANILLA with a diagnosis of Balance. Date of Evaluation: 12/20/23 Physical Therapist: Arturo Cervantes, SONT, OCS, CSCS Visit Plan Frequency: 3x /Week Duration: 4-6 Weeks Plan: 3x/week for 4-6. IE was balance safety with vestibular deficits and HO and recommend strengthening regimen and if bike is in her future it is likely 3 f[place]on or training wheels which her and are agreeable to Focus on vestibular head movement and foam stance and ec ex and weight shifts to I. Then gym and home based LE strength hip strength, core strength adn general ex. Please include stationary bike gently. 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 Now I need to revamp her muscles and get stronger. Used to be a biker but balance is not good on bike. No problems walking. No problems on steps but they take a little longer. Needs rail or wall, stroke left with memory loss. No regular exercises except walking the neighborhood on sidewalks. No problems with that. Sleep is OK No pain. 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 Not employed. Hobbies: pottery adn able to do it but not as much. [place] overwhelmed. Dresses self, bathroom self, shower self. would like to bike, wants to be on road bike. Objective Objective: Walks I into PT without AD. Transfers chair and bed I. Steps with one rail I up and down reciprocally. lumbar ROM WFL reflexes 2/3 patella and achilles Sensation LE WNL to gross light touch in B LE Strength 3+ hip abduction, extension and rotations. knee flexion ext is 4-/5 ankle 4/5 - slump, - SLR coordination to reciprocal tap of toes and heels is good. Notably foam stance ec is not great, weakness in core and high expectations of riding a bike. Balance/Special Test Scores Functional Gait Assessment Score: 27 % Disability: 10.0000 CATSIB Score (Max score 120 seconds): 98 Lower Extremity Functional Score: 57 TUG Test Time Seconds: 9 30 Second Chair Rise Test Seconds: 16 Goals Goal 1:: foam stance ec 20 seconds without LOB Goal Time Frame: 4-6 Weeks Goal 2:: I appropriate HEP for vestibular balance, strength LE, hips and core and posture to I gym or home. Goal Time Frame: 4-6 Weeks Goal 3:: Pt feel 75% better in overall mobility Goal Time Frame: 4-6 Weeks Goal 4:: Plan to ride bike outside if possible Goal Time Frame: 4-6 Weeks Rehabilitation Potential Physical Therapy Diagnosis: unsteady feeling and limited activity Rehabilitation Potential: Fair Anticipated Interventions Patient/Client Instruction: Educate patient on: Condition and Plan of Care For the Purpose of:: To improve nutrient delivery to tissue, To improve muscle performance and motor function, To increase tolerance to activity/condition/position, To improve ability of physical actions for home/community/work/leisure and To improve gait and locomotor functions Therapeutic Exercise to Include: Strength training, Balance training, Postural training, Flexibilty training and Gait and locomotor training For the Purpose of:: To improve nutrient delivery to tissue, To improve muscle performance and motor function, To increase tolerance to activity/condition/position, To improve ability of physical actions for home/community/work/leisure and To improve gait and locomotor functions Text: Thank you for the opportunity to evaluate your patient. For Medicare and Medicare HMO plans, please review the plan of care and approve it. It will need to be FAXED BACK to us at [phone] for Medicare purposes. For Medicare only, by signing this I certify the plan of care. Please let me know if there are questions or concerns regarding this plan of care. Physician Signature: Date:
--- NOTE | 2024-01-17 09:51 | HP.PTREVAL ---
Re-Evaluation Intro: DESIRE QUINTANILLA, It has been my pleasure to treat BENNY LAMBERT over the last 13 visits for Balance. Please see the progress note below for an update on the physical therapy plan of care! Subjective Subjective: we have come so far. Walking and standing without feeling imbalanced. Doing housework sometimes which is good. Activities: normal, not safe riding bike but does stationary bike. Objective Objective/Function: Better romberg adn pt feeling better overall , walking and turning safely and with more confident, I with trasnfers. Wishes to try continuing on her own with gym aworkout and HEP and will f/u in two weeks to ensure continued meeting of goals and d/c. Will call prior if not going well. Plan Plan Plan: f/u two weeks for d/c, review gym ex as needed. Balance/Gait/Functional tests Balance/Special Test Scores Functional Gait Assessment Score: 27 % Disability: 10.0000 CATSIB Score (Max score 120 seconds): 120 Lower Extremity Functional Score: 52 TUG Test Time Seconds: 9 Tug Test: <10 sec.=free mobile 30 Second Chair Rise Test Seconds: 16 Goals Goals Goal 1:: foam stance ec 20 seconds without LOB Goal Time Frame: 4-6 Weeks Goal Progress: Goal Met Goal 2:: I appropriate HEP for vestibular balance, strength LE, hips and core and posture to I gym or home. Goal Time Frame: 4-6 Weeks Goal Progress: Goal Met Goal 3:: Pt feel 75% better in overall mobility Goal Time Frame: 4-6 Weeks Goal Progress: Goal Met Goal 4:: Plan to ride bike outside if possible Goal Time Frame: 4-6 Weeks Goal Progress: 3 wheel if at all, statio Anticipated Interventions Anticipated Interventions Patient/Client Instruction: Educate patient on: Condition and Plan of Care For the Purpose of:: To improve nutrient delivery to tissue, To improve muscle performance and motor function, To increase tolerance to activity/condition/position, To improve ability of physical actions for home/community/work/leisure and To improve gait and locomotor functions Therapeutic Exercise to Include: Strength training, Balance training, Postural training, Flexibilty training and Gait and locomotor training For the Purpose of:: To improve nutrient delivery to tissue, To improve muscle performance and motor function, To increase tolerance to activity/condition/position, To improve ability of physical actions for home/community/work/leisure and To improve gait and locomotor functions Re-Evaluation Ending Re-evaluation ending: Please do not hesitate to contact me at [phone] by phone or if you have questions or concerns regarding this new plan of care! Sincerely, Arturo Cervantes, DPT, OCS, CSCS
--- NOTE | 2024-01-31 10:29 | HP.PTREVAL ---
Re-Evaluation Intro: DESIRE QUINTANILLA, It has been my pleasure to treat BENNY LAMBERT over the last 14 visits for Balance. Please see the progress note below for an update on the physical therapy plan of care! Subjective Subjective: Better. More energy. A little back ache. Doing exercises when she remembers, walks daily. Prakash says she cannot remember the exercises and did not do them. . Doing bike and walking at home. Objective Objective/Function: Still very good balance and 30 sec STS for her age and in good condition despite not exercising for the last two weeks due to unable to replicate ex and not knowing them. After consult, they think home exercises with pictures again are the best going FW(has not been doing HEP either) Plan Plan Plan: 2x/week for 2 weeks to perform in therapy with pictures and teach who will be present strengthening... heel raises, squats, lat band walks, bridges, cclamshells , step and recover, rows, shoulder press please give pics and ensure is taught as well due to her memory problems. Goal is I with home program with pics and fair prognosis with pics and husbands help. Pt to start after her vacation in two weeks. Balance/Gait/Functional tests Balance/Special Test Scores Functional Gait Assessment Score: 27 % Disability: 10.0000 CATSIB Score (Max score 120 seconds): 120 Lower Extremity Functional Score: 52 TUG Test Time Seconds: 9 Tug Test: <10 sec.=free mobile 30 Second Chair Rise Test Seconds: 17 Goals Goals Goal 1:: foam stance ec 20 seconds without LOB Goal Time Frame: 4-6 Weeks Goal Progress: Goal Met Goal 2:: I appropriate HEP for vestibular balance, strength LE, hips and core and posture to I gym or home. Goal Time Frame: 4-6 Weeks Goal Progress: Goal Met Goal 3:: Pt feel 75% better in overall mobility Goal Time Frame: 4-6 Weeks Goal Progress: Goal Met Goal 4:: Plan to ride bike outside if possible Goal Time Frame: 4-6 Weeks Goal Progress: not recommended Goal 5:: mod I appropriate HEP for balance, LE and posture with pics and help of . Goal Time Frame: 2-4 Weeks Goal Progress: NEW GOAL Anticipated Interventions Anticipated Interventions Patient/Client Instruction: Educate patient on: Condition and Plan of Care For the Purpose of:: To improve nutrient delivery to tissue, To improve muscle performance and motor function, To increase tolerance to activity/condition/position, To improve ability of physical actions for home/community/work/leisure and To improve gait and locomotor functions Therapeutic Exercise to Include: Strength training, Balance training, Postural training, Flexibilty training and Gait and locomotor training For the Purpose of:: To improve nutrient delivery to tissue, To improve muscle performance and motor function, To increase tolerance to activity/condition/position, To improve ability of physical actions for home/community/work/leisure and To improve gait and locomotor functions Re-Evaluation Ending Re-evaluation ending: Please do not hesitate to contact me at [phone] by phone or if you have questions or concerns regarding this new plan of care! Sincerely, Arturo Cervantes, DPT, OCS, CSCS
--- NOTE | 2024-02-29 10:21 | HP.PTDCSUM ---
Discharge Summary D/C summary: It has been my pleasure to treat BENNY LAMBERT referred by DESIRE QUINTANILLA, with the diagnosis of Balance for a total of 18 visit(s). Discharge Date: 02/29/24 Please see the following information for a summary of their discharge status. Subjective Subjective: Going the right way says her and her . i am still standing when I am finished. Doing HEP and needs encouragement from . HEP is the rigth intenisty and feels accomplished. Still feels wobbly. No falls. 70% better. Activities are pretty normal outside of biking which is not recommended. Will have Pain management shot soon. Pain Left Hip: Pain Intensity (Out of 10): Unrated L LB: Pain Intensity (Out of 10): 2 Overall Improvement % Improvement: 70 Objective Objective/Function: Walking well with excellent balance but poor confidence, still puts hands up to balance despite not needing this in many situations. Feels like they can continue the HEP I and she just needs reminders from to do it Goals Goal 1:: foam stance ec 20 seconds without LOB Goal Progress: Goal Met Goal 2:: I appropriate HEP for vestibular balance, strength LE, hips and core and posture to I gym or home. Goal Progress: Goal Met Goal 3:: Pt feel 75% better in overall mobility Goal Progress: Goal Met Goal 4:: Plan to ride bike outside if possible Goal Progress: not recommended Goal 5:: mod I appropriate HEP for balance, LE and posture with pics and help of . Goal Progress: Goal Met Plan Plan: d/c to HEP D/C Information Discharge Comments: To doctor in May and will continue HEP in meantime. d/c sentence: If there are questions or concerns regarding this patient's physical therapy, please feel free to call me at [phone]. Thank you for the referral of this patient. Sincerely, Arturo Cervantes, DPT, OCS, CSCS Balance/Gait/Functional tests Balance/Special Test Scores Functional Gait Assessment Score: 27 % Disability: 10.0000 CATSIB Score (Max score 120 seconds): 120 Lower Extremity Functional Score: 52 TUG Test Time Seconds: 9 Tug Test: <10 sec.=free mobile 30 Second Chair Rise Test Seconds: 17 Improvement % Improvement: 70
== END 2024-02-29 12:21 | disposition home or self-care (01) ==
LOC: PT 09:30
PROVIDERS: PCP Family Medicine
DX: R26.89 Other abnormalities of gait and mobility (principal)
CPT/HCPCS: 97110; 97112; 97162; 97164; 97530

== ENCOUNTER → 2024-05-01 | Outpatient (CLI) | payer MEDICARE, SELFPAY ==
--- NOTE | 2024-05-01 10:33 | BI_ITS ---
MAMMOGRAPHY - BILATERAL SCREENING REASON FOR EXAM: Female, 84 years old. Routine annual screening examination. PERTINENT HISTORY: Non-contributory. TECHNIQUE: Digital bilateral breast sandra (3D mammographic acquisition) in the CC and MLO projections. 2-D mediolateral oblique (MLO) and craniocaudad (CC) views of both breasts were obtained. CAD: Full Field Digital Mammography with Computer Added Detection was performed. COMPARISON: Comparison is made with prior study April 26, 2023 and January 08, 2021. FINDINGS: Breast Composition: The breasts are heterogeneously dense, which may obscure small masses. There are no dominant masses or suspicious calcifications. Stable bilateral secretory calcifications. No other significant abnormalities are identified. There has been no significant change since the prior study. BI/SCRN MAMM (CAD)W/SANDRA BILAT IMPRESSION: Stable bilateral screening mammogram. Yearly follow-up mammogram recommended. (A) ASSESSMENT CATEGORY: BIRADS Category 2: Benign. A letter regarding these results will be sent to the patient by the facility within 30 days. Approximately 10% of breast cancers are not detected by mammography. A normal mammogram should not delay biopsy of a clinically suspicious abnormality. [id number] Electronically Signed: Chito Zuleta MD at 12:09 EDT ,
== END | disposition home or self-care (01) ==
LOC: OPBI 10:31
PROVIDERS: PCP Family Medicine; Referring Provider Family Medicine; Visit Provider Family Medicine
DX: Z12.31 Encounter for screening mammogram for malignant neoplasm of breast (principal)
CPT/HCPCS: 77063; 77067

== ENCOUNTER → 2024-10-11 | Outpatient (CLI) | payer MEDICARE, SELFPAY ==
[2024-10-11 12:21] LABS: Absolute Neutrophil Count 4.9 X10^3/uL (2.0-7.7); Basophil# 0.04 X10^3/uL; Basophil% 0.6 % (0-1); Eosinophil# 0.11 X10^3/uL; Eosinophils% 1.6 % (0-5); Hematocrit 40.7 % (37-47); Hemoglobin 13.2 g/dL (12.0-15.0); Lymphocyte % 17.5 % (19-41); Mean Corp Hgb Conc 32.4 g/dL (32-36); Mean Corpuscular Volume 89.5 fL (81-99); Mean Platelet Vol. 10.1 fl (6.2-12.0); Monocyte# 0.59 X10^3/uL; Monocyte% 8.6 % (0-10); NRBC Flagged by Analyzer 0 % (0-5); Neutrophil # 4.91 X10^3/uL (2.7-7.7); Neutrophil % 71.6 % (47-70); Platelet Count 334 K/mm3 (150-450); RBC Distribution Width CV 12.9 % (11.6-14.6); RBC Distribution Width SD 42.4 fl (35.1-43.9); Red Blood Count 4.55 M/mm3 (4.2-5.4); White Blood Count 6.9 K/mm3 (4.4-11.0)
[2024-10-11 12:30] LABS: Vitamin D,25 Hydroxy 56.9 ng/mL
[2024-10-11 12:38] LABS: ALB/GLOB Ratio 1.1 RATIO (0.9-2.4); AST(SGOT) 34 U/L (15-37); Alanine Aminotransfer ALT/SGPT 26 U/L (13-56); Alkaline Phosphatase 67 U/L (45-117); Anion Gap 6 (5-15); BUN 23 mg/dL (7-18); BUN/Creat Ratio 25.7 RATIO (10-20); Calcium,Total 10.2 mg/dL (8.5-10.1); Chloride 104 mmol/L (98-107); Cholesterol 167 mg/dL (200); Creatinine, Serum 0.89 mg/dL (0.55-1.02); EST Glomerular Filtration Rate 64 mL/min (>60); Est Glom Filt Rate - Afr Amer 77 mL/min (>60); Globulin 3.6 g/dL (2.2-4.2); Glucose 100 mg/dL (74-106); High Density Lipoprotein 67 mg/dL; Potassium 4.7 mmol/L (3.5-5.1); Protein, Total 7.6 g/dL (6.4-8.2); Sodium Level 138 mmol/L (136-145); Triglycerides 198 mg/dL; Very Low Density Lipoprotein 40 mg/dL (5-40)
== END | disposition home or self-care (01) ==
LOC: LAB 11:29
PROVIDERS: PCP Family Medicine; Referring Provider Physician Assistant Medical; Visit Provider Physician Assistant Medical
DX: I70.90 Unspecified atherosclerosis (principal); I25.10 Atherosclerotic heart disease of native coronary artery without angina pectoris; E78.5 Hyperlipidemia, unspecified; M81.0 Age-related osteoporosis without current pathological fracture; I10 Essential (primary) hypertension
CPT/HCPCS: 36415; 80053; 80061; 82306; 84443; 85025

== ENCOUNTER → 2024-11-19 | Outpatient (CLI) | payer MEDICARE, SELFPAY ==
--- NOTE | 2024-11-19 13:56 | ECHOCS_ITS ---
Reason For Study Reason For Study: Eval Valve Replacement Procedure This was a 2D Doppler, Color Flow transthoracic echocardiogram. The study was technically difficult. Contrast injection was performed. Exam performed in department. Left Ventricle Normal LV size. Left ventricular systolic function is normal. The left ventricular ejection fraction is 65 %. Stage 1 diastolic dysfunction. No regional wall motion abnormalities noted. Right Ventricle Normal RV size. Normal systolic function. Atria Normal left atrium. Normal right atrium. Mitral Valve Normal mitral valve. Tricuspid Valve Normal tricuspid valve. Mild tricuspid valve insufficiency. Pulmonary artery systolic pressure is 21 mmHg. Aortic Valve Mean aortic valve gradient 9 mmHg. Mild (1+) aortic valve insufficiency. Bioprosthetic aortic valve. Medication 22 gauge I.V. with prn adaptor inserted into right arm. Diluted definity 1.5ml given slow IV push to enhance endocardial definition. MMode/2D Measurements & Calculations LVIDd: 3.9 cm IVSd: 0.97 cm LVOT diam: 1.8 cm LVIDs: 2.5 cm LVPWd: 0.97 cm LVOT area: 2.5 cm2 RVDd: 3.7 cm FS: 35.3 % Ao root diam: 3.8 cm LAV(MOD-bp): 37.3 ml LVAd ap4: 23.4 cm2 LAV(MOD-bp) Indexed: 23.7 ml/m2 LVLd ap4: 6.4 cm LAV(MOD-sp2): 38.6 ml EDV(MOD-sp4): 69.1 ml LAV(MOD-sp4): 33.1 ml EDV(sp4-el): 73.1 ml LVAs ap4: 9.6 cm2 LVLs ap4: 4.5 cm ESV(MOD-sp4): 16.5 ml ESV(sp4-el): 17.4 ml EF(MOD-sp4): 76.2 % EF(sp4-el): 76.1 % SV(MOD-sp4): 52.7 ml SV(sp4-el): 55.7 ml Ao sinus diam: 3.2 cm SI(MOD-sp4): 33.5 ml/m2 Ao ST Junction: 2.4 cm LA dimension(2D): 3.9 cm LA A4 area: 14.5 cm2 RA A4 area: 12.2 cm2 TAPSE: 1.5 cm Time Measurements MV dec time: 0.29 sec Doppler Measurements & Calculations MV E max colton: 75.8 cm/sec Lat Peak E' Colton: 4.8 cm/sec Med Peak E' Colton: 5.5 cm/sec MV A max colton: 119.3 cm/sec E/E' lat: 15.7 E/E' med: 13.8 MV E/A: 0.64 MV V2 max: 129.4 cm/sec MV P1/2t max colton: 86.1 cm/sec Ao V2 max: 216.5 cm/sec MV max P.7 mmHg MV P1/2t: 94.4 msec Ao max P.8 mmHg MV V2 mean: 67.0 cm/sec Ao V2 mean: 140.3 cm/sec MV mean P.1 mmHg MV dec slope: 267.1 cm/sec2 Ao mean P.2 mmHg MV V2 VTI: 29.3 cm MVA(P1/2t): 2.3 cm2 Ao V2 VTI: 41.3 cm AV (velocity ratio): 0.57 MVA(VTI): 2.1 cm2 KAILA(I,D): 1.5 cm2 KAILA(V,D): 1.2 cm2 AI max colton: 514.9 cm/sec LV V1 max: 105.2 cm/sec SV(LVOT): 60.2 ml AI max P.5 mmHg LV V1 max P.5 mmHg AI dec slope: 278.8 cm/sec2 LV V1 mean P.5 mmHg AI P1/2t: 540.9 msec LV V1 mean: 74.4 cm/sec LV V1 VTI: 23.7 cm PA V2 max: 77.6 cm/sec PI end-d colton: 103.7 cm/sec TR max colton: 216.8 cm/sec TR max P.8 mmHg ECHO/Echo Complete W/ Contrast Interpretation Summary Normal LV size. Left ventricular systolic function is normal. The left ventricular ejection fraction is 65 %. Stage 1 diastolic dysfunction. Bioprosthetic aortic valve. Ordering Physician: Cadence Veronica Referring Physician: Cadence Veronica Performed By: Timothy Horner RCS
== END | disposition home or self-care (01) ==
LOC: CVS 13:55
PROVIDERS: PCP Family Medicine; Referring Provider Physician Assistant Medical; Visit Provider Physician Assistant Medical
DX: I35.0 Nonrheumatic aortic (valve) stenosis (principal); Z95.2 Presence of prosthetic heart valve
CPT/HCPCS: 93306; Q9957; A4216; C8929

== ENCOUNTER → 2025-04-29 | Outpatient (CLI) | payer MEDICARE, SELFPAY ==
--- NOTE | 2025-04-29 08:45 | BD_ITS ---
PROCEDURE: DEXA BONE DENSITY STUDY 04/29/2025 REASON FOR EXAM: F, age 85 y/o . Postmenopausal. TECHNIQUE: DEXA BONE DENSITY STUDY COMPARISON: April 26, 2023. FINDINGS: BMD and T-SCORES Lumbar spine: 0.931 g/cm2, T-score -0.4 Levels: L1 through L4 Change from prior: Loss of 6.1%. Left femoral neck: 0.663 g/cm2, T-score -1.7 Femoral neck comparison data not recommended for monitoring change. Left total hip: 0.798 g/cm2, T-score -1.2 Change from prior: Loss of 0.3%. Right femoral neck: 0.632 g/cm2, T-score -2.0 Femoral neck comparison data not recommended for monitoring change. Right total hip: 0.791 g/cm2, T-score -1.2 Change from prior: Improvement of 0.9%. The World Health Organization has defined the following categories based on bone density: Normal bone density: T-score equal to or greater than -1.0 Osteopenia: T-score between -1.0 and -2.5 Osteoporosis: T-score equal to or less than -2.5 FRAX (or Comparable) Fracture Risk Assessment: 10 Year Probability of Fracture: Major Osteoporotic Fracture: 16% Hip Fracture: 4.8% (Note: FRAX is not to be reported in setting of normal range bone density, osteoporosis on DEXA, known history of osteoporosis, prior osteoporotic hip or vertebral fracture, or for any patient undergoing pharmacological treatment for bone loss.) The National Osteoporosis Foundation (NOF) recommends pharmacological treatment for patients with a FRAX 10-year risk of 3% or higher for a hip fracture, or 20% or higher for a major osteoporotic fracture, to prevent osteoporosis and reduce fracture risk. The patient does meet the pharmacological treatment recommendations for prevention of osteoporosis. BD/Dexa Bone Density Study IMPRESSION: OSTEOPENIA. Recommend follow-up as clinically warranted. Reading Location: [id number]
== END | disposition home or self-care (01) ==
LOC: OPBD 08:45
PROVIDERS: PCP Family Medicine; Referring Provider Family Medicine; Visit Provider Family Medicine
DX: M81.0 Age-related osteoporosis without current pathological fracture (principal)
CPT/HCPCS: 77080

== ENCOUNTER 2025-06-09 13:00 | Outpatient (RCR) | payer MEDICARE, SELFPAY ==
--- NOTE | 2024-07-29 18:20 | HP.SP.EVAL ---
Visit History Visit Info Date of Eval: 07/29/24 Visit: 1 Device Processing Engineer: MEGHA History Attending Doctor: Referring Doctor: Reason for Referral: MEMORY CHANGES, DEMENTIA/RX HERE Previous speech therapy: No Smoking Status: Never smoker Diagnosis Diagnosis: Previous CVA from 2020 Pain Is pain an issue with your current prescribed condition?: No Personal Preferred language: Greek Patient Allergies Allergies Allergies: Allergies Antihistamines - Ethanolamine Allergy (Verified 05/14/24 10:03) NEEDS FOLLOW-UP ramipril (From Altace) Allergy (Verified 05/14/24 10:03) Angioedema atorvastatin (From Lipitor) Adverse Reaction (Verified 05/14/24 10:03) myalgias cefuroxime (From Ceftin) Adverse Reaction (Verified 05/14/24 10:03) GI Upset [place] And Derivatives Adverse Reaction (Verified 05/14/24 10:03) Other CAUSES CANKER SORES isosorbide Adverse Reaction (Verified 05/14/24 10:03) headache Ftensjt-CPB-EoN Reductase Inhibitor (Mwyszrm-Fvs-Dqh Reductase Inhibitor) Adverse Reaction (Verified 05/14/24 10:03) myalgias CLQT CLQT CLQT Administered: Yes CLQT: Cognitive Linguistic Quick Test (CLQT) is a criterion - referenced assessment designed for adults between the ages of 18 and 89 with known or suspected neurological dysfuntions. The CLQT is to assess strength and weaknesses in five cognitive domains. Severity ratings are within normal limits, mild, moderate, severe deficits. The subtests are as follows: Date: 07/29/24 Attention Attention: Mild Memory Memory: WNL Executive Functions Executive Functions: WNL Language Language: WNL Visuospatial Skills Visuospatial Skills: WNL Composite Severity Rating Composite Severity Rating: WNL Clock Drawing Severity Rating Clock Drawing Severity Rating: WNL CLQT Comments Scores: -: - Attention: 108 - Memory: 151 - Executive Functions: 26 - Language: 28 - Visuospatial Skills: 70 - Clock Drawin Reference: Neuro-QoL instrument Radiation Oncology Patient Plan Plan Plan: At this time, skilled speech therapy is recommended to address the area of attention. Recommendations Treatment Warranted: Yes Treatment Warranted: Receptive/ Expressive Language and Cognition Progress Prognosis: Good Frequency Frequency: 1x/Week Duration: Indefinite Patient/Family Goal Patient/Family Goal: To improve attention and short-term memory skills. Goals that are Established Determination:: Goals will be added/modified as deemed necessary and appropriate. Therapy will be discontinued when results of re-evaluation indicate therapy is no longer needed or lack of progress has been documented. Goal #1-5 Goal #1: Angelique will complete basic to mod complex sustained, alternating, divided attention tasks with 90% acc independently across 3 measured opportunities. Goal #2: Angelique will complete basic to mod complex immediate, short-term, and working memory tasks with 90% acc independently across 3 measured opportunities. Education Patient Instruction Patient Education: Treatment Plan and Goals Person Taught: Patient and Significant Other Teaching Method: Discussion Response to teaching: Verbalize Understanding
--- NOTE | 2024-11-11 17:39 | HP.SPREEV_ITS ---
Visit History Visit Info Date of Eval: 07/29/24 Visit: 1 Pediatric Cns: MEGHA History Attending Doctor: Referring Doctor: Reason for Referral: MEMORY CHANGES, DEMENTIA/RX HERE Previous speech therapy: No Smoking Status: Never smoker Diagnosis Diagnosis: CVA (from 2020) Pain Is pain an issue with your current prescribed condition?: No Personal Preferred language: Chilean Patient Allergies Allergies Allergies: Allergies Antihistamines - Ethanolamine Allergy (Verified 10/11/24 10:53) NEEDS FOLLOW-UP ramipril (From Altace) Allergy (Verified 10/11/24 10:53) Angioedema atorvastatin (From Lipitor) Adverse Reaction (Verified 10/11/24 10:53) myalgias cefuroxime (From Ceftin) Adverse Reaction (Verified 10/11/24 10:53) GI Upset [place] And Derivatives Adverse Reaction (Verified 10/11/24 10:53) Other CAUSES CANKER SORES isosorbide Adverse Reaction (Verified 10/11/24 10:53) headache Hahxind-Wzm-Uko Reductase Inhibitor Adverse Reaction (Verified 10/11/24 10:53) myalgias Previous/Current Goals Goals 1-5 Previous Goal #1: Angelique will complete basic to mod complex sustained, alternating, divided attention tasks with 90% acc independently across 3 measured opportunities. Goal 1 Status: Angelique is making mild improvement with this goal by completing moderate sustained, alternating, and divided attention tasks each session with approximately 80% accuracy given minimal cues from ST. Will continue to work on this goal. Previous Goal #2: Angelique will complete basic to mod complex immediate, short- term, and working memory tasks with 90% acc independently across 3 measured opportunities. Goal 2 Status: Angelique is making mild improvement with this goal by completing moderate immediate, short-term, and working memory tasks, as well as utilizing memory strategies during each session with approximately 70% accuracy given moderate cues from ST. Will continue to work on this goal. CLQT CLQT CLQT Administered: Yes CLQT: Cognitive Linguistic Quick Test (CLQT) is a criterion - referenced as sessment designed for adults between the ages of 18 and 89 with known or suspected neurological dysfuntions. The CLQT is to assess strength and weaknesses in five cognitive domains. Severity ratings are within normal limits, mild, moderate, severe deficits. The subtests are as follows: Date: 07/29/24 Attention Attention: Mild Memory Memory: WNL Executive Functions Executive Functions: WNL Language Language: WNL Visuospatial Skills Visuospatial Skills: WNL Composite Severity Rating Composite Severity Rating: WNL Clock Drawing Severity Rating Clock Drawing Severity Rating: WNL CLQT Comments Scores: -: - Attention: 108 - Memory: 151 - Executive Functions: 26 - Language: 28 - Visuospatial Skills: 70 - Clock Drawin CLQT Re-Eval Testing Results CLQT Test Comparison: - Attention (initial eval): 108 (mild) - Attention (re-eval): 109 (mild) - Memory (initial eval): 151 (WNL) - Memory (re-eval): 158 (WNL) - Executive Function (initial eval): 26 (WNL) - Executive Function (re-eval): 29 (WNL) - Language (initial eval): 28 (WNL) - Language (re-eval): 32 (WNL) - Visuospatial (inital eval): 70 (WNL) - Visuospatial (re-eval): 77 (WNL) Reference: Neuro-QoL instrument Radiation Oncology Patient Plan Plan Plan: Skilled speech therapy services are recommended to continue working on attention and memory skills. Recommendations Treatment Warranted: Yes Treatment Warranted: Receptive/ Expressive Language and Cognition Progress Prognosis: Good Frequency Frequency: 1x/Week Duration: Indefinite Patient/Family Goal Patient/Family Goal: Pt and stated that they would like to continue to target memory and attention during speech therapy sessions. Goals that are Established Determination:: Goals will be added/modified as deemed necessary and appropriate. Therapy will be discontinued when results of re-evaluation i ndicate therapy is no longer needed or lack of progress has been documented. Goal #1-5 Goal #1: Angelique will complete basic to mod complex sustained, alternating, divided attention tasks with 90% acc independently across 3 measured opportunities. Goal #2: Angelique will complete basic to mod complex immediate, short-term, and w orking memory tasks with 90% acc independently across 3 measured opportunities. Education Patient Instruction Patient Education: Treatment Plan and Goals Person Taught: Patient and Significant Other Teaching Method: Discussion Response to teaching: Verbalize Understanding
--- NOTE | 2025-03-04 14:02 | HP.SPREEV_ITS ---
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 Pain Is pain an issue with your current prescribed condition?: No Personal Preferred language: Telugu Patient Allergies Allergies Allergies: Allergies Antihistamines - Ethanolamine Allergy (Verified 10/11/24 10:53) NEEDS FOLLOW-UP ramipril (From Altace) Allergy (Verified 10/11/24 10:53) Angioedema atorvastatin (From Lipitor) Adverse Reaction (Verified 10/11/24 10:53) myalgias cefuroxime (From Ceftin) Adverse Reaction (Verified 10/11/24 10:53) GI Upset [place] And Derivatives Adverse Reaction (Verified 10/11/24 10:53) Other CAUSES CANKER SORES isosorbide Adverse Reaction (Verified 10/11/24 10:53) headache Ylimqmg-IES-GoC Reductase Inhibitor (Yhffjpl-Aas-Wfq Reductase Inhibitor) Adverse Reaction (Verified 10/11/24 10:53) myalgias Previous/Current Goals Goals 1-5 Previous Goal #1: Angelique will complete basic to mod complex sustained, alternating, divided attention tasks with 90% acc independently across 3 measured opportunities. Goal 1 Status: Goal met Previous Goal #2: Angelique will complete basic to mod complex immediate, short- term, and working memory tasks with 90% acc independently across 3 measured opportunities. Goal 2 Status: Angelique continues to make adequate progress towards this goal. Per the CLQT+ she experiences mild deficits with visual and auditory memory. CLQT CLQT CLQT Administered: Yes CLQT: Cognitive Linguistic Quick Test (CLQT) is a criterion - referenced assessment designed for adults between the ages of 18 and 89 with known or suspected neurological dysfuntions. The CLQT is to assess strength and weaknesses in five cognitive domains. Severity ratings are within normal limits, mild, moderate, severe deficits. The subtests are as follows: Date: 07/29/24 Attention Attention: Mild Memory Memory: WNL Executive Functions Executive Functions: WNL Language Language: WNL Visuospatial Skills Visuospatial Skills: WNL Composite Severity Rating Composite Severity Rating: WNL Clock Drawing Severity Rating Clock Drawing Severity Rating: WNL CLQT Comments Scores: -: - Attention: 108 - Memory: 151 - Executive Functions: 26 - Language: 28 - Visuospatial Skills: 70 - Clock Drawin CLQT Re-Eval Testing Results CLQT Test Comparison: - Attention: 184 WNL - Memory: 121 Mild - Executive Functions: 25 WNL - Language: 22 Moderate - Visuospatial Skills: 86 WNL Reference: Neuro-QoL instrument Radiation Oncology Patient Plan Plan Plan: At this time it is recommended that Angelique continues to participate in skilled speech therapy to target mild memory and language deficits. Recommendations Treatment Warranted: Yes Treatment Warranted: Receptive/ Expressive Language Progress Prognosis: Good Frequency Frequency: 1x/Week Duration: Indefinite Patient/Family Goal Patient/Family Goal: To continue to improve her memory skills. Goals that are Established Determination:: Goals will be added/modified as deemed necessary and appropriate. Therapy will be discontinued when results of re-evaluation indicate therapy is no longer needed or lack of progress has been documented. Goal #1-5 Goal #1: Angelique will complete moderately complex immediate, short-term, and working memory tasks with 90% acc independently across 3 consecutive sessions. Goal #2: Angelique will complete moderately complex concrete and abstract naming tasks with 90% acc independently across 3 consecutive sessions. Education Patient Instruction Patient Education: Treatment Plan and Goals Person Taught: Patient and Significant Other Teaching Method: Discussion Response to teaching: Verbalize Understanding
--- NOTE | 2025-06-09 14:58 | HP.SP.DC ---
ST Discharge Summary Discharged: Discharge: Patient is being discharged from [facility] speech therapy services at this time. Patient attended initial evaluation on 07/29/24 and attended weekly therapy sessions for 10 months. Re-evaluation showed progress to all domains (attention, memory, executive function, language, and visuospatial skills) to be WNL at this time. Patient, , and ST agreed on discharging at this time. Thank you for allowing me to participate in care of this patient.
== END 2025-06-09 19:00 | disposition home or self-care (01) ==
LOC: SP 13:00
PROVIDERS: PCP Family Medicine; Referring Provider Family Medicine; Visit Provider Family Medicine
DX: F01.50 Vascular dementia, unspecified severity, without behavioral disturbance, psychotic disturbance, mood disturbance, and anxiety (principal); R41.3 Other amnesia
CPT/HCPCS: 92507; 92523

== ENCOUNTER → 2025-08-21 | Outpatient (CLI) | payer MEDICARE, SELFPAY ==
--- NOTE | 2025-08-21 17:15 | BI_ITS ---
EXAM: SCRN MAMM (CAD)W/SANDRA BILAT DATE: 08/21/2025 CLINICAL HISTORY: F, Age 85 y/o , BREAST CANCER No family history. TECHNIQUE: Procedure Code: [id number] Modality: MG Procedure: SCRN MAMM (CAD)W/SANDRA BILAT COMPARISON: Prior exam(s) dated May 01, 2024.. FINDINGS: TISSUE DENSITY: The breasts are heterogeneously dense, which may obscure small masses. Bilateral Breast Mammographic Findings: No significant masses, calcifications or other abnormalities are identified. Stable bilateral secretory calcifications. No suspicious masses, areas of developing architectural distortion, or suspicious calcifications. There has been no significant interval change. BI/SCRN MAMM (CAD)W/SANDRA BILAT IMPRESSION: Stable bilateral screening mammogram. OVERALL FINAL ASSESSMENT BI-RADS 2: BENIGN RECOMMENDATION: Routine annual follow-up in 1 Year Additional Recommendation none A letter with findings and recommendations will be mailed to the patient. Reading Location: [facility]
== END | disposition home or self-care (01) ==
LOC: OPBI 16:25
PROVIDERS: PCP Family Medicine
DX: Z12.31 Encounter for screening mammogram for malignant neoplasm of breast (principal)
CPT/HCPCS: 77063; 77067